=== PATIENT | male | born 1940 | race Caucasian/White ===

== ENCOUNTER → 2022-07-25 10:41 | Outpatient (BNVA) | payer OTHER, SELFPAY | PROVIDERS: Visit Provider Specialist | DX: S49.91XA Unspecified injury of right shoulder and upper arm, initial encounter (principal); S46.212A Strain of muscle, fascia and tendon of other parts of biceps, left arm, initial encounter; M12.812 Other specific arthropathies, not elsewhere classified, left shoulder; W23.0XXA Caught, crushed, jammed, or pinched between moving objects, initial encounter | CPT/HCPCS: 20610; 73030; 99204; 99205; J1100; J2795; J3301 ==

== ENCOUNTER → 2022-10-03 08:57 | Outpatient (BNVA) | payer OTHER, SELFPAY | PROVIDERS: Visit Provider Specialist | DX: M12.812 Other specific arthropathies, not elsewhere classified, left shoulder (principal); S46.212A Strain of muscle, fascia and tendon of other parts of biceps, left arm, initial encounter; X58.XXXA Exposure to other specified factors, initial encounter | CPT/HCPCS: 99213 ==

== ENCOUNTER 2023-02-25 14:32 | Outpatient (CLI) | payer OTHER, SELFPAY ==
--- NOTE | 2023-02-25 14:42 | CT_ITS ---
WS: [id number] CT ABDOMEN PELVIS TECHNIQUE: Contrast-enhanced CT of the abdomen and pelvis with coronal and sagittal reformatted image s. CLINICAL INFORMATION: ABNORMAL WEIGHT LOSS COMPARISON: None. DLP: 251.[address] scans at [facility] use at least one of these dose optimization techniques: automated e xposure control; mA and/or kV adjustment per patient size (includes targeted exams where dose is matc hed to clinical indication); or iterative reconstruction. FINDINGS: Enhancing homogeneously enhancing enlarged prostate measuring 4.7 CCM. Urine distended bladder with s mall cystocele. Penile pump reservoir in the LEFT pelvis. Slight bibasilar atelectasis. Small noncalcified nodule RIGHT middle lobe measuring 3 mm. 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 Mild diffuse fatty infiltration t he liver. Normal gallbladder. Normal portal vein and splenic vein. Normal spleen. Normal GE junction. Normal caliber abdominal aorta. Celiac and SMA are patent. Mild aortic calcification. No aneurysm. N ormal renal parenchymal enhancement. Duplicated RIGHT renal collecting system. No hydronephrosis. Adr enal glands are normal. Sigmoid diverticulosis. Mild RIGHT colon and transverse colon constipation. Mild rectal constipation. CT/CT abdomen pelvis w con* [id number] IMPRESSION: 1. Large heterogeneously enhancing prostate measuring 4.7 CM with thickening o f the seminal vesicles.. Distended bladder may be due to bladder outlet obstruc tion. Recommend correlation PSA. 2. Mild transverse colon, RIGHT colon and rectal constipation. 3. Mild diffuse fatty infiltration liver. 4. No hydronephrosis in either kidney. 5. No adenopathy in the abdomen or pelvis. 6. 3 mm small nodule in the RIGHT middle lobe.
[2023-02-25] MEDS: iohexol 350 mg/mL 500 mL Btl (per mL) IV (16:06)
[2023-02-25] MEDS: iohexol 350 mg/mL 500 mL Btl (per mL) PO (16:07)
[2023-02-25 16:27] LABS: Blood Urea Nitrogen 25 mg/dL (8-23)
== END 2023-02-25 14:33 | disposition home or self-care (01) ==
LOC: RAD 14:36
PROVIDERS: Visit Provider Family Medicine
DX: R63.4 Abnormal weight loss (principal); N32.89 Other specified disorders of bladder; K59.00 Constipation, unspecified; N40.0 Benign prostatic hyperplasia without lower urinary tract symptoms; K76.0 Fatty (change of) liver, not elsewhere classified; R91.1 Solitary pulmonary nodule
CPT/HCPCS: 74177; 82565; 84520; Q9967

== ENCOUNTER → 2023-11-22 07:38 | Outpatient (BNVA) | payer OTHER, SELFPAY | PROVIDERS: PCP Family Medicine; Referring Provider Family Medicine; Visit Provider Internal Medicine | DX: E78.2 Mixed hyperlipidemia; E11.649 Type 2 diabetes mellitus with hypoglycemia without coma; Z79.84 Long term (current) use of oral hypoglycemic drugs | CPT/HCPCS: 36415; 80053; 80061; 82044; 83036; 99204 ==

== ENCOUNTER 2023-12-13 16:01 | Emergency (ER) | payer OTHER, SELFPAY ==
[2023-12-13 16:06] VITALS: BP 161/80; PULSE 69; RESP 16; TEMP 36.4; O2SAT 98
--- NOTE | 2023-12-13 16:17 | CTR_ITS ---
PROCEDURE INFORMATION: Exam: CT Head Without Contrast Exam date and time: 12/13/2023 4:34 PM Age: 83 years old Clinical indication: Injury or trauma; Fall; Blunt trauma (contusions or hematomas); Without loss of consciousness; Injury details: Hit RT side of face; Additional info: Head injury TECHNIQUE: Imaging protocol: Computed tomography of the head without contrast. Radiation optimization: All CT scans at this facility use at least one of these dose optimization techniques: automated exposure control; mA and/or kV adjustment per patient size (includes targeted exams where dose is matched to clinical indication); or iterative reconstruction. COMPARISON: No relevant prior studies available. RADIATION DOSE METRICS: Total DLP (mGy-cm): 1049.2 FINDINGS: Brain: No intracranial hemorrhage. There is global parenchymal volume loss. Periventricular white matter hypoattenuation is nonspecific but most likely due to small vessel disease. No evidence of acute territorial infarct or cerebral edema. No mass effect or midline shift. Cerebral ventricles: Prominent ventricles likely secondary to volume loss. Paranasal sinuses: Visualized sinuses are unremarkable. No fluid levels. Mastoid air cells: Visualized mastoid air cells are well aerated. Bones/joints: Unremarkable. No acute fracture. Soft tissues: Unremarkable. CT/CT head wo con* [id number] IMPRESSION: No acute intracranial findings.
--- NOTE | 2023-12-13 16:19 | ED_ITS ---
HPI - Head Injury General: Chief complaint: Head Injury Stated complaint: [facility] Time Seen by Provider: 12/13/23 16:13 Source: patient Mode of arrival: ambulatory Limitations: no limitations History of Present Illness: 83-year-old male that states that he fel l twice on Saturday had struck his head he does have bruising to the right forehead he had some mild headaches he does take aspirin he denies any loss of consciousness patient was sent over here from the [place] for head CT he denies any neck pain denies any other injury Associated symptoms: Deny nausea, neck pain or vomiting Review of Systems Const: Denies: fever(s), chills, body aches or change in appetite ENMT: Denies: throat pain or dental pain Card: Denies: chest pain Resp: Denies: dyspnea GI: Denies: abdominal pain, nausea, vomiting or diarrhea Musc: Denies: neck pain or back pain Skin/Breast: Denies: rash Neuro: Reports: headache(s) PFS ED PFSH: Social History Smoking and tobacco/nicotine status: never used tobacco/nicotine Physical Exam Const: COMMON NORMALS: no acute distress, patient oriented x3 and healthy appearing HENMT: COMMON NORMALS: normocephalic HEAD & SCALP: normocephalic OTHER: Contusion over right forehead Eye: COMMON NORMALS: Equal, round and reactive pupils present and EOMs intact bilaterally PUPIL: Yes Equal, round and reactive pupils present OTHER: Range of motion eyes he has no tenderness around the socket does have a contusion around the right eye pain over the right forehead palpation Neck/C-Spine: COMMON NORMALS: full ROM and supple Chest: COMMONS NORMALS: normal inspection of the chest and normal palpation of entire chest wall Resp: COMMON NORMALS: normal respiratory effort Cardio: COMMON NORMALS: regular rate, regular rhythm and No murmurs present (Cardio) RATE: regular rate RHYTHM: regular rhythm Extremity: COMMON NORMALS: normal to inspection and full ROM Neuro: COMMON NORMALS: patient oriented x3, moves all extremities and no focal motor deficits Psych: COMMON NORMALS: mental status grossly normal, Normal thought process present and cooperative THOUGHT PROCESS: Normal thought process present Skin: COMMON NORMALS: no rashes or lesions noted and no wounds GENERAL SKIN EXAM: no rashes or lesions noted Course Vital Signs: Vital signs: Vital Signs Temperature 97.5 F L 12/13/23 16:06 Pulse Rate 69 12/13/23 16:06 Respiratory Rate 16 12/13/23 16:06 Blood Pressure 161/80 12/13/23 16:06 Pulse Oximetry 98 12/13/23 16:06 MDM - Head Injury Medcial Decision Making Patient presents here with a closed head injury CT here is normal patient is stable for discharge she is follow-up with her PCP and return if worsening. Medical Records I reviewed the patient's medical records. Lab Data Radiology Impressions Head CT 12/13/23 16:17 IMPRESSION: No acute intracranial findings. All radiology interpretation(s) finalized by discharge Discharge Plan Discharge Patient Disposition: Home Clinical Impression: Closed head injury Condition: Stable Prescriptions: No Action finasteride 5 mg tablet 5 mg PO DAILY empagliflozin 25 mg tablet 25 mg PO DAILY Rx Instructions: take 1/2 a tab once a day rosuvastatin 5 mg tablet 5 mg PO DAILY multivitamin [One Daily Multivitamin] Tablet 1 tab PO DAILY aspirin 81 mg tablet,delayed release (DR/EC) 81 mg PO DAILY glimepiride 4 mg tablet 4 mg PO DAILY cranberry 500 mg capsule 500 mg PO BID Rx Instructions: administer with meals pioglitazone [Actos] 45 mg tablet 45 mg PO DAILY Qty: 90 0RF Victoza 3-Galindo 0.6 mg/0.1 mL (18 mg/3 mL) pen injector 1.2 mg SUBCUT DAILY 7 Days Qty: 9 0RF Rx Instructions: 1.2mg daily x one week then start 1.8 daily Victoza 3-Galindo 0.6 mg/0.1 mL (18 mg/3 mL) pen injector 1.8 mg SUBCUT DAILY 90 Days Qty: 27 1RF Discharge Orders: Discharge ED (Routine); Ordered 12/13/23 Ordered By: Gustabo Fournier Referrals: Linda Fischer MD [Primary Care Provider] - 1-3 days Discharge Diet: Advance as tolerated Discharge Activity: Resume usual activity Patient Instructions: Head Injury (ED) Coding Level of Care Code ED Political Anthropologist for Jennifer Rodas
[2023-12-13 17:04] VITALS: BP 135/74; PULSE 67; RESP 15; O2SAT 98
== END 2023-12-13 17:05 | disposition home or self-care (01) ==
PROVIDERS: Emergency Provider Emergency Medicine; PCP Family Medicine
DX: S00.83XA Contusion of other part of head, initial encounter (principal); Z79.82 Long term (current) use of aspirin; Z79.84 Long term (current) use of oral hypoglycemic drugs; W19.XXXA Unspecified fall, initial encounter
CPT/HCPCS: 70450; 99284

== ENCOUNTER → 2024-02-21 07:35 | Outpatient (BNVA) | payer OTHER, SELFPAY | PROVIDERS: PCP Family Medicine; Visit Provider Internal Medicine | DX: E11.9 Type 2 diabetes mellitus without complications (principal); E78.2 Mixed hyperlipidemia; Z79.84 Long term (current) use of oral hypoglycemic drugs | CPT/HCPCS: 99215 ==

== ENCOUNTER 2024-06-15 09:17 | Outpatient (CLI) | payer OTHER, SELFPAY ==
[2024-06-15 09:56] LABS: Alanine Aminotransferase 13 U/L (0-41); Anion Gap 15.9 (5-19); Aspartate Amino Transferase 19 U/L (0-40); Blood Urea Nitrogen 29 mg/dL (8-23); Calcium 9.4 mg/dL (8.5-10.5); Carbon Dioxide 27 mmol/L (22-29); Chloride 103 mmol/L (98-107); Cholesterol 145 mg/dL (0-200); Globulin 2.5 g/dL (1.3-4.6); Glucose 169 mg/dL (65-115); HDL Cholesterol 66 mg/dL (60-100); LDL Cholesterol Calculated 62 mg/dL (50-129); LDL HDL Ratio 0.94 RATIO (0.00-3.22); Osmolality Calculated 302 mOsm/kg (285-295); Potassium 4.9 mmol/L (3.5-5.1); Sodium 141 mmol/L (136-145); Total Bilirubin 0.5 mg/dL (0.15-1.2); Total Protein 6.5 g/dL (6.6-8.7); Triglycerides 86 mg/dL (0-150)
[2024-06-15 09:57] LABS: Alkaline Phosphatase 103 U/L (40-130)
[2024-06-15 10:02] LABS: Creatinine Urine, Random 90 mg/dL (39-259); Microalbum Creatinine Ratio Ur 11 mg/dL (0-20); Microalbumin Random Urine 1 ug/dL (0-20)
[2024-06-15 10:31] LABS: Estmated Average Glucose 171; Hemoglobin A1C 7.6 % (4.0-6.0)
== END 2024-06-15 09:18 | disposition home or self-care (01) ==
LOC: LAB 09:19
PROVIDERS: PCP Family Medicine; Visit Provider Internal Medicine
DX: E11.9 Type 2 diabetes mellitus without complications (principal); E78.2 Mixed hyperlipidemia
CPT/HCPCS: 36415; 80053; 80061; 82044; 83036

== ENCOUNTER → 2024-06-19 07:51 | Outpatient (BNVA) | payer OTHER, SELFPAY | PROVIDERS: PCP Family Medicine; Visit Provider Internal Medicine | DX: E11.9 Type 2 diabetes mellitus without complications (principal); E78.2 Mixed hyperlipidemia; Z79.84 Long term (current) use of oral hypoglycemic drugs; Z79.85 Long-term (current) use of injectable non-insulin antidiabetic drugs | CPT/HCPCS: 99214 ==

== ENCOUNTER 2024-07-28 11:30 | Outpatient (CLI) | payer OTHER, SELFPAY ==
[2024-07-28 13:00] LABS: Estmated Average Glucose 169; Hemoglobin A1C 7.5 % (4.0-6.0)
[2024-07-28 13:02] LABS: Alanine Aminotransferase 20 U/L (0-41); Albumin Level 4.2 g/dL (3.5-5.2); Alkaline Phosphatase 120 U/L (40-130); Anion Gap 15.3 (5-19); Aspartate Amino Transferase 27 U/L (0-40); Blood Urea Nitrogen 28 mg/dL (8-23); Calcium 9.7 mg/dL (8.5-10.5); Carbon Dioxide 29 mmol/L (22-29); Chloride 101 mmol/L (98-107); Chol HDL Ratio 2.19 mg/dL (1.0-5.00); Cholesterol 149 mg/dL (0-200); Globulin 2.9 g/dL (1.3-4.6); Glucose 186 mg/dL (65-115); HDL Cholesterol 68 mg/dL (60-100); LDL Cholesterol Calculated 58 mg/dL (50-129); LDL HDL Ratio 0.85 RATIO (0.00-3.22); Osmolality Calculated 300 mOsm/kg (285-295); Potassium 5.3 mmol/L (3.5-5.1); Sodium 140 mmol/L (136-145); Total Bilirubin 0.4 mg/dL (0.15-1.2); Total Protein 7.1 g/dL (6.6-8.7); Triglycerides 113 mg/dL (0-150)
[2024-07-28 13:09] LABS: Creatinine Urine, Random 197 mg/dL (39-259); Microalbum Creatinine Ratio Ur 30 mg/dL (0-20); Microalbumin Random Urine 6 ug/dL (0-20)
== END 2024-07-28 11:31 | disposition home or self-care (01) ==
LOC: LAB 11:32
PROVIDERS: PCP Family Medicine; Visit Provider Internal Medicine
DX: E11.9 Type 2 diabetes mellitus without complications (principal); E78.2 Mixed hyperlipidemia
CPT/HCPCS: 36415; 80053; 80061; 82044; 83036

== ENCOUNTER 2024-08-19 07:57 | Outpatient (CLI) | payer OTHER, SELFPAY ==
[2024-08-19 08:35] LABS: Blood Urea Nitrogen 22 mg/dL (8-23); Calcium 9.1 mg/dL (8.5-10.5); Carbon Dioxide 25 mmol/L (22-29); Chloride 102 mmol/L (98-107); Glucose 167 mg/dL (65-115); Osmolality Calculated 291 mOsm/kg (285-295); Sodium 137 mmol/L (136-145)
[2024-08-19 09:00] LABS: Anion Gap 14.2 (5-19); Potassium 4.2 mmol/L (3.5-5.1)
== END 2024-08-19 07:58 | disposition home or self-care (01) ==
LOC: LAB 07:58
PROVIDERS: PCP Family Medicine; Visit Provider Internal Medicine
DX: E78.2 Mixed hyperlipidemia (principal)
CPT/HCPCS: 80048

== ENCOUNTER → 2024-08-21 08:24 | Outpatient (BNVA) | payer OTHER, SELFPAY | PROVIDERS: PCP Family Medicine; Visit Provider Internal Medicine | DX: E11.9 Type 2 diabetes mellitus without complications (principal); E78.2 Mixed hyperlipidemia; Z79.84 Long term (current) use of oral hypoglycemic drugs; Z79.85 Long-term (current) use of injectable non-insulin antidiabetic drugs | CPT/HCPCS: 99214 ==

== ENCOUNTER 2025-02-12 08:02 | Outpatient (CLI) | payer OTHER, SELFPAY ==
[2025-02-12 09:02] LABS: Estmated Average Glucose 180; Hemoglobin A1C 7.9 % (4.0-6.0)
[2025-02-12 09:12] LABS: Creatinine Urine, Random 144 mg/dL (39-259); Microalbum Creatinine Ratio Ur 7 mg/dL (0-20); Microalbumin Random Urine 1 ug/dL (0-20)
[2025-02-12 09:19] LABS: Alanine Aminotransferase 10 U/L (0-41); Albumin Level 4.2 g/dL (3.5-5.2); Alkaline Phosphatase 90 U/L (40-130); Anion Gap 15.5 (5-19); Aspartate Amino Transferase 19 U/L (0-40); Blood Urea Nitrogen 26 mg/dL (8-23); Calcium 9.8 mg/dL (8.5-10.5); Carbon Dioxide 27 mmol/L (22-29); Chloride 102 mmol/L (98-107); Chol HDL Ratio 2.35 mg/dL (1.0-5.00); Cholesterol 160 mg/dL (0-200); Globulin 2.6 g/dL (1.3-4.6); Glucose 156 mg/dL (65-115); HDL Cholesterol 68 mg/dL (60-100); LDL Cholesterol Calculated 76 mg/dL (50-129); LDL HDL Ratio 1.12 RATIO (0.00-3.22); Osmolality Calculated 298 mOsm/kg (285-295); Potassium 4.5 mmol/L (3.5-5.1); Sodium 140 mmol/L (136-145); Total Bilirubin 0.9 mg/dL (0.15-1.2); Total Protein 6.8 g/dL (6.6-8.7); Triglycerides 78 mg/dL (0-150)
== END 2025-02-12 08:03 | disposition home or self-care (01) ==
LOC: LAB 08:05
PROVIDERS: PCP Family Medicine; Visit Provider Internal Medicine
DX: E11.9 Type 2 diabetes mellitus without complications (principal); E78.2 Mixed hyperlipidemia
CPT/HCPCS: 36415; 80053; 80061; 82044; 83036

== ENCOUNTER → 2025-03-11 12:11 | Outpatient (BNVA) | payer OTHER, SELFPAY | PROVIDERS: PCP Family Medicine; Visit Provider Internal Medicine | DX: E11.9 Type 2 diabetes mellitus without complications (principal); E78.2 Mixed hyperlipidemia | CPT/HCPCS: 99214 ==

== ENCOUNTER 2025-07-19 05:00 | Outpatient (RCR) | payer OTHER, SELFPAY | END 2025-08-17 23:59 | disposition home or self-care (01) | LOC: GPT 05:00 | PROVIDERS: Visit Provider Orthopaedic Surgery | DX: Z47.1 Aftercare following joint replacement surgery (principal); Z96.612 Presence of left artificial shoulder joint | CPT/HCPCS: 97110; 97112; 97140; 97161 ==

== ENCOUNTER → 2025-08-02 10:21 | Outpatient (BNVA) | payer OTHER, SELFPAY | PROVIDERS: Visit Provider Internal Medicine | DX: E11.9 Type 2 diabetes mellitus without complications (principal); E78.2 Mixed hyperlipidemia | CPT/HCPCS: 99214 ==

== ENCOUNTER 2025-09-15 07:55 | Outpatient (RCR) | payer OTHER, SELFPAY | END 2025-09-17 23:59 | disposition home or self-care (01) | LOC: GPT 07:55 | PROVIDERS: Visit Provider Orthopaedic Surgery | DX: Z47.89 Encounter for other orthopedic aftercare (principal) | CPT/HCPCS: 97110; 97112; 97140; 97164; 97530 ==

== ENCOUNTER → 2025-09-22 10:24 | Outpatient (BNVA) | payer OTHER, SELFPAY | PROVIDERS: Visit Provider Podiatrist Foot & Ankle Surgery | DX: M79.671 Pain in right foot (principal); M79.672 Pain in left foot | CPT/HCPCS: 73630 ==

== ENCOUNTER 2025-09-22 11:02 | Observation (INO) | payer OTHER, SELFPAY ==
--- OUTSIDE RECORDS SUMMARY | 2024-05-09 03:00 | XMS_ITS ---
Author Organization [facility] Address [address] [place] [address] Care Team Providers Care School Transportation Supervisor Name Role Phone [facility] Primary Care Provider Ilda vailable Cody Lo Unavailable [phone] Migration, Provider Unavailable Unavailable REASON FOR VISIT EMR-Luis Carlos Encounters Encounter Location Date Provider Diagnosis Migrated_Facility 0 0 05/09/2024 Provider Migration Plan Of Treatment Next Appt Details Provider Name:Cdoy Lo, 06/02/2026 08:00:00 AM, [address] [place], [address], Progress Notes * Carlos Alberto ALCALA GDOB:1940 (85 yo M)Acc No.[id number]:05/09/2024 Patient: Abbie HOWELLCarlos Alberto Leila :1940 A ge:83 Y S ex:Male Address:[facility] [address], [place] [address] Subjective: * Chief Complaints: * E MR-Luis Carlos * * Date:
--- OUTSIDE RECORDS SUMMARY | 2024-05-10 03:00 | XMS_ITS ---
Author Organization [facility] Address [address] [facility] [place] [address] Care Team Providers Care Software Support Representative Name Role Phone [facility] Primary Care Provider Ilda Cody Newell Unavailable [phone] Migration, Provider Unavailable Unavailable Allergies Allergen (clinical drug ingredient) Drug/Non Drug Allergy documented on EMR Reaction Allergy Type Onset Date Status NKDA : NO KNOWN DRUG ALLERGIES Unknown Drug Allergy Active REASON FOR VISIT EMR-Luis Carlos Medications Medication SIG (Take, Route, Frequency, Duration) Notes Start Date End Date Status Finasteride 5 MG Tablet Oral 05/09/2021 08/07/2021 Active Clobetasol Propionate 0.0005 MG/MG Topical Ointment *Reorder from [facility] for eRx and Interaction Alerts* 05/09/2021 06/08/2021 Active Rosuvastatin Calcium 10 MG Oral Tablet *Reorder from [facility] for eRx and Interaction Alerts* 05/09/2021 08/07/2021 Active 3 ML liraglutide 6 MG/ML Pen Injector [Victoza] *Reorder from [facility] for eRx and Interaction Alerts* 05/09/2021 08/07/2021 Active empagliflozin 25 MG Oral Tablet [Jardiance] *Reorder from [facility] for eRx and Interaction Alerts* 05/09/2021 05/19/2021 Active Social History Social History Additional Details Category Social Info Options Details Migrated Social History Migrated Social History History of tobacco use : , Smoking Status : Never used tobacco Encounters Encounter Location Date Provider Diagnosis Migrated_Facility 0 0 05/10/2024 Provider Migration Plan Of Treatment Next Appt Details Provider Name:Cody Lo, 06/02/2026 08:00:00 AM, [address] [place], [address], Progress Notes * Carlos Alberto ALCALA GDOB:1940 (85 yo M)Acc No.[id number]:05/10/2024 Patient: Carlos Alberto COLE :1940 A ge:83 Y S ex:Male Address:[address] [place] [address] Subjective: * Chief Complaints: * E MR-Luis Carlos * Family History: F ather: PRN - Father: . M other: PRN - Mother: . * Social History: M igrated Social History: M igrated Social History: History of tobacco use : , Smoking Status : Never used tobacco. * Medications: T akingFinasteride 5 MG Tablet Oral , stop date 1Clobetasol Propionate 0.0005 MG/MG Topical Ointment , stop date 06/08/2021, Notes to Pharmacist: *Reorder from [facility] for eRx and Interaction Alerts*Rosuvastatin Calcium 10 MG Oral Tablet , stop date 08/07/2021, Notes to Pharmacist: *[facility]*3 ML liraglutide 6 MG/ML Pen Injector [Victoza] , stop date 08/07/2021, Notes to Pharmacist: *[facility] and Interaction Alerts*empagliflozin 25 MG Oral Tablet [Jardiance] , stop date 05/19/2021, Notes to Pharmacist: *[facility] and Interaction Alerts*Taking Finasteride 5 MG Tablet Oral , stop date 08/07/2021Taking Clobetasol Propionate 0.0005 MG/MG Topical Ointment , stop date 06/08/2021, Notes to Pharmacist: *[facility] and Interaction Alerts*Taking Rosuvastatin Calcium 10 MG Oral Tablet , stop date 08/07/2021, Notes to Pharmacist: *[facility] from [facility] for [facility]Rx and Interaction Alerts*Taking 3 ML liraglutide 6 MG/ML Pen Injector [Victoza] , stop date 08/07/2021, Notes to Pharmacist: *Reorder from [facility] for eRx and Interaction Alerts*Taking empagliflozin 25 MG Oral Tablet [Jardiance] , stop date 05/19/2021, Notes to Pharmacist: *Reorder from [facility] for eRx and Interaction Alerts* * Allergies: N KDA : NO KNOWN DRUG ALLERGIES: Allergy * * Date:
--- OUTSIDE RECORDS SUMMARY | 2024-09-12 03:00 | XMS_ITS ---
Author Organization [facility] Address [address] [place] [address] Care Team Providers Care Manager Erp Name Role Phone [facility] Primary Care Provider Ilda vailable Cody Lo Unavailable [phone] Migration, Provider Unavailable Unavailable REASON FOR VISIT EMR-Luis Carlos Encounters Encounter Location Date Provider Diagnosis Migrated_Facility 0 0 09/12/2024 Provider Migration Plan Of Treatment Next Appt Details Provider Name:Cody Lo, 06/02/2026 08:00:00 AM, [address] [place], [address], Progress Notes * Carlos Alberto ALCALA GDOB:1940 (85 yo M)Acc No.[id number]:09/12/2024 Patient: Abbie HOWELLCarlos Alberto Leila :1940 A ge:84 Y S ex:Male Address:[facility] [address], [place] [address] Subjective: * Chief Complaints: * E MR-Luis Carlos * * Date:
--- OUTSIDE RECORDS SUMMARY | 2024-09-13 03:00 | XMS_ITS ---
Author Organization [facility] Address [address] [place] [address] Care Team Providers Care Crawler Dragline Operator Name Role Phone [facility] Primary Care Provider Ilda Cody Newell Unavailable [phone] Migration, Provider Unavailable Unavailable Allergies Allergen (clinical drug ingredient) Drug/Non Drug Allergy documented on EMR Reaction Allergy Type Onset Date Status NKDA : NO KNOWN DRUG ALLERGIES Unknown Drug Allergy Active REASON FOR VISIT EMR-Luis Carlos Medications Medication SIG (Take, Route, Frequency, Duration) Notes Start Date End Date Status Aspirin *Pick strength-f orm from [facility] for eRX* Active Vitamin B-12 *Pick strength-f orm from [facility] for eRX* Active Finasteride *Pick strength-f orm from [facility] for eRX* Active Rosuvastatin *[facility] for [facility] and Interaction Alerts* Active Metformin *Reorder from [facility] for eRx and Interaction Alerts* Active Multivitamin *Pick strength-f orm from [facility] for eRX* Active glipiZIDE *Pick strength-f orm from [facility] for eRX* Active Victoza 2-Galindo *Reorder from [facility] for eRx and Interaction Alerts* Active [...] Provider Name:Cody Lo, 06/02/2026 08:00:00 AM, [address] [facility], [address], Progress Notes * Carlos Alberto ALCALA GDOB:1940 (85 yo M)Acc No.[id number]:09/13/2024 Patient: Carlos Alberto COLE :1940 A ge:84 Y S ex:Male Address:[address] [address] Subjective: * Chief Complaints: * E MR-Luis [...]
--- OUTSIDE RECORDS SUMMARY | 2025-05-24 02:20 | XMS_ITS ---
Author Organization [facility] Address [address] [place] [address] Care Team Providers Care Warehouse Administrative Assistant Name Role Phone [facility] Primary Care Provider Ilda vailaCody Croft Unavailable [phone] REASON FOR VISIT LEFT REVERSE TOTAL SHOULDER ARTHROPLASTY Encounters Encounter Location Date Provider Diagnosis [facility] [address] [address] 05/24/2025 Cody Lo Plan Of Treatment Next Appt Details Provider Name:Cody Lo, 06/02/2026 08:00:00 AM, [address] [place], [address], Progress Notes * Carlos Alberto ALCALA GDOB:1940 (85 yo M)Acc No.[id number]:05/24/2025 Patient: Carlos Alberto Ortiz Provider: Juan Carlos Lo M.D. :1940 A ge:84 Y S ex:Male Date:05/24/2025 Address:[address] [place]-[id number] Pcp:[facility] * Electronic signature of Mitch Lo MD on 09/23/2025 at 12:30 AM PROGRAMS DIRECTOR Sign off status: Pending * Provider: Juan Carlos Lo M.D. Date: 05/24/2025 Generated for Printi ng/Faxing/eTransmitting on: 11/23/2024 12:30 AM PROGRAMS DIRECTOR
[2025-09-22] VITALS (29 sets, daily range): BP systolic 116–145; BP diastolic 61–90; PULSE 51–143; RESP 12–32; TEMP 36.6–36.8; O2SAT 83–100; BMI 18.4; BMI 19.8
--- OUTSIDE RECORDS SUMMARY | 2025-09-22 11:15 | XMS_ITS | Clinical Summary ---
Author Organization [facility] Address [address] [place] [address] Care Team Providers Care Correctional Program Specialist Name Role Phone Jeanie Goff MD Primary Care Provider [phone] Allergies No known active allergies Medications METFORMIN HCL (METFORMIN ORAL) Act abdiel GLIPIZIDE ORAL Activ e multivitamin (DAILY-JEFFERY) Oral tablet Active FINASTERIDE ORAL Act abdiel aspirin (BRY) 325 mg tablet Take 325 mg by mouth daily. Active VITAMIN B COMPLEX NO.12-NIACIN ORALIndications: every other day Take by mouth. Active Active Problems Problem Noted Date Diagnosed Date DM (diabetes mellitus), type 2 02/18/2017 Immunizations Immunization Administration Dates Next Due Influenza Seasonal Unspecified Formulation IM Family History Medical History Relation Name Comments Arthritis-rheumatoid Mother Relation Name Status Comments Father Mother Alive Social History Tobacco Use Types Packs/Day Years Used Date Smoking Tobacco: Never Smokeless Tobacco: Never Alcohol Use Standard Drinks/Week Comments No 0 (1 standard drink = 0.6 oz pur e alcohol) Sex and Gender Information Value Date Recorded Sex Assigned at Not on file Legal Sex Male 4:34 AM MEDICAL AUDITOR Gender Identity Not on file Sexual Orientation Not on file Last Filed Vital Signs Vital Sign Reading Time Taken Comments Blood Pressure 158/88 10/25/2019 7:08 PM MEDICAL AUDITOR Pulse 75 10/25/2019 4:45 PM MEDICAL AUDITOR Temperature 36.5 C (97.7 F) 10/25/2019 4:16 PM MEDICAL AUDITOR Respiratory Rate 16 10/25/2019 7:08 PM MEDICAL AUDITOR Oxygen Saturation 98% 10/25/2019 7:08 PM MEDICAL AUDITOR Inhaled Oxygen Concentration - - Weight 63.5 kg (140 lb) 10/25/2019 4:16 PM MEDICAL AUDITOR Height 180.3 cm (5' 11 ) 10/25/2019 4:16 PM MEDICAL AUDITOR Body Mass Index 19.53 10/25/2019 4:16 PM MEDICAL AUDITOR Plan of Treatment Health Maintenance Due Date Last Done Comments DIABETES ANNUAL FOOT EXAM 1959 DIABETES MICROALBUMIN ANNUAL SCREEN 1959 LDL CHOLESTEROL ANNUAL 1959 DTAP/TDAP/TD VACCINES (1 - Tdap) 1960 PNEUMOCOCCAL VACCINE 50+ YEA RS (1 of 2 - PCV) 1960 ZOSTER VACCINE (1 of 2) 1991 RSV VACCINE (60+ or ) (1 - 1-dose 75+ series) 2016 DIABETES ANNUAL RETINAL EXAM 12/11/2017, 04/10/2016, 03/21/2015, Additional history exists DIABETES HBA1C Q 6 MONTHS 10/27/20192018, 12/29/2018, 09/25/2018, Additional history exists INFLUENZA VACCINE (#1) 2025 09/22/2001 Insurance MEDICARE PART A AND B [employer] Care Teams Correctional Program Specialist Relationship Specialty Start Date End Date Jeanie Goff MD [address] [place] [address] PCP - General Internal Medicine 01/28/17
--- OUTSIDE RECORDS SUMMARY | 2025-09-22 11:15 | XMS_ITS | Encounter Summary ---
Author Organization [facility] Address [address] [place] [address] Care Team Providers Care Supervisor Machine Workers Name Role Phone Jeanie Goff MD Primary Care Provider [phone] Encounter Details Date Type Department Care Team (Latest Contact Info) Description 09/22/2001 Outpatient Historical [facility] Jarred Mendoza MD [address] [place] [address] DIABETES UNCOMPL ADULT-TYPE II (CMS/HCC) (Primary Dx); HYPERTENSION NOS; VACCINE FOR INFLUENZA Social History Tobacco Use Types Packs/Day Years Used Date Smoking Tobacco: Never Assessed Sex and Gender Information Value Date Recorded Sex Assigned at Not on file Legal Sex Male 4:34 AM RECORD LABEL INTERN Gender Identity Not on file Sexual Orientation Not on file documented as of this encounter Plan of Treatment Not on file documented as of this encounter Visit Diagnoses Diagnosis Type II or unspecified type diabetes mellitus without mention of complication, not stated as uncontrolled- Primary Unspecified essential hypertension Need vaccination-viral disease Need for prophylactic vaccination and inoculation against other viral diseases documented in this encounter Care Teams Supervisor Machine Workers Relationship Specialty Start Date End Date Jeanie Goff MD [address] [place] [address] PCP - General Internal Medicine 01/28/17 documented as of this encounter
--- OUTSIDE RECORDS SUMMARY | 2025-09-22 11:15 | XMS_ITS | Encounter Summary ---
Author Organization [facility] Address [address] [place] [address] Care Team Providers Care Card Folder Name Role Phone Jeanie Goff MD Primary Care Provider [phone] Encounter Details Date Type Department Care Team (Latest Contact Info) Description 04/08/2003 Outpatient Historical [facility] Cardiovascular Services [address] [id number] Adelfo Peace MD [address] [address] [place] [address] CHEST PAIN NOS (Primary Dx) Social History Tobacco Use Types Packs/Day Years Used Date Smoking Tobacco: Never Assessed Sex and Gender Information Value Date Recorded Sex Assigned at Not on file Legal Sex Male 4:34 AM ENVIRONMENT ARTIST Gender Identity Not on file Sexual Orientation Not on file documented as of this encounter Plan of Treatment Not on file documented as of this encounter Visit Diagnoses Diagnosis Chest pain, unspecified- Primary documented in this encounter Care Teams Card Folder Relationship Specialty Start Date End Date Jeanie Goff MD [address] [place] [address] PCP - General Internal Medicine 01/28/17 documented as of this encounter
--- OUTSIDE RECORDS SUMMARY | 2025-09-22 11:15 | XMS_ITS | Clinical Summary ---
Author Organization [facility] Address [address] [facility] Attn: Epic [place] [address] Care Team Providers Care President College Or [employer] Name Role Phone Jeanie Goff MD Primary Care Provider [phone] Allergies No known active allergies Medications vit B complex no.12/niacin,B3, (VITAMIN B COMPLEX NO.12-NIACIN ORAL) Take by mouth. 02/18/2017 Active aspirin (BRY) 325 mg tablet Take 325 mg by mouth daily. 02/18/2017 Active Active Problems Problem Noted Date Diagnosed [...] at Not on file Legal Sex Male 6:44 AM ACUPRESSURIST Gender Identity Not on file Sexual Orientation Not on file Last Filed Vital Signs Vital Sign Reading Time Taken Comments Blood Pressure 158/88 10/25/2019 7:08 PM ACUPRESSURIST Pulse 75 10/25/2019 4:45 PM ACUPRESSURIST Temperature 36.5 C (97.7 F) 10/25/2019 4:16 PM ACUPRESSURIST Respiratory Rate 16 10/25/2019 7:08 PM ACUPRESSURIST Oxygen Saturation - - Inhaled Oxygen Concentration - - Weight 63.5 kg (140 lb) 10/25/2019 4:16 PM ACUPRESSURIST Height 180.3 cm (5' 11 ) 10/25/2019 4:16 PM ACUPRESSURIST Body Mass Index 19.53 10/25/2019 4:16 PM ACUPRESSURIST Plan of Treatment Upcoming Encounters Date Type Department Care Team (Late st Contact Info) Description 10/20/2025 9:15 AM ACUPRESSURIST Office Visit [facility] Orthopedics - Orthopedic [facility] [address] [phone] Richie García MD [address] [place] [address] Health Maintenance Due Date Last Done Comments [...] exists INFLUENZA VACCINE (#1) 2025 09/22/2001 Insurance [facility] [place] [employer] Care Teams President College [employer] Relationship Specialty Start Date End Date Jeanie Goff MD [address] [place] [address] PCP - General Internal Medicine 01/28/17
--- OUTSIDE RECORDS SUMMARY | 2025-09-22 11:15 | XMS_ITS | Encounter Summary ---
Author Organization [facility] Address [address] [place] [address] Care Team Providers Care Academic Guidance Specialist Name Role Phone Jeanie Goff MD Primary Care Provider [phone] Encounter Details Date Type Department Care Team (Late st Contact Info) Description 04/08/2003 Outpatient Historical [facility] Imaging Services [place] [address] [place] [phone] Belkis Mc MD NO ADDRESS ON FILE Social History Tobacco Use Types Packs/Day Years Used Date Smoking Tobacco: Never Assessed Sex and Gender Information Value Date Recorded Sex Assigned at Not on file Legal Sex Male 4:34 AM EAR SPECIALIST Gender Identity Not on file Sexual Orientation Not on file documented as of this encounter Plan of Treatment Not on file documented as of this encounter Visit Diagnoses Not on filedocumented in this encounter Care Teams Academic Guidance Specialist Relationship Specialty Start Date End Date Jeanie Goff MD [address] [place] [address] PCP - General Internal Medicine 01/28/17 documented as of this encounter
--- NOTE | 2025-09-22 11:21 | ECG_ITS ---
[employer] [facility] Test Date: 2025-09-22 Pat Name: Carlos Alberto Lares Department: Room: Gender: Male Aligner: : 1940 Requested By: Marino Calix Order Number: [id number] Patel MD: Tommy Dye M.D. Measurements Intervals [place] Rate: 142 P: 0 HI: 0 QRS: -33 QRSD: 84 T: 67 QT: 297 QTc: 457 Interpretive Statements ATRIAL FLUTTER/TACHYCARDIA WITH RAPID VENTRICULAR RESPONSE LEFT AXIS DEVIATION [QRS AXIS < -30] NONSPECIFIC ST & T-WAVE ABNORMALITY INTERPRETATION BASED ON A DEFAULT AGE OF 40 YEARS No previous ECG available for comparison Electronically Signed On 09-22-2025 23:41:47 ROVING FRAME TENDER by Tommy Dye M.D. [id number]
--- NOTE | 2025-09-22 11:21 | XR_ITS ---
WS: [id number] Portable AP upright chest, 09/22/2025 Clinical Data: intermittent tachycardia Comparison: Portable chest, 06/11/2009. Findings: No nodules, masses or effusions are seen. The heart is normal. The pulmonary vascularity is not increased. No pneumonia or pneumothorax is seen. The aortic arch and descending thoracic aorta show minimal calcification and tortuosity. 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 XR/XR chest 1V portable [id number] Impression: Atherosclerosis.
--- NOTE | 2025-09-22 11:25 | ECG_ITS ---
[employer] [facility] Test Date: 2025-09-22 Pat Name: Carlos Alberto Lares Department: Room: Gender: Male Sheet Fed Printer: : 1940 Requested By: Marino Calix Order Number: [id number] Amanda MD: Tommy Dye M.D. Measurements Intervals [place] Rate: 72 P: 12 PA: 154 QRS: 84 QRSD: 90 T: -3 QT: 329 QTc: 362 Interpretive Statements SINUS RHYTHM WITH OCCASIONAL SUPRAVENTRICULAR PREMATURE COMPLEXES NONSPECIFIC T-WAVE ABNORMALITY No previous ECG available for comparison Electronically Signed On 09-22-2025 23:42:49 BULB ASSEMBLER by oTmmy Dye M.D. [email or web address] [id number]
[2025-09-22 11:27] LABS: Hematocrit 47.8 % (37-53); Hemoglobin 16.00 g/dL (11.27-16.99); Mean Corpuscular HGB Conc 33.5 g/dL (30-55); Mean Corpuscular Hemoglobin 29.6 pg (27-33); Mean Corpuscular Volume 88.4 fl (82-101); Nucleated Red Blood Cells % 0 %; Platelet Count 194 10^3/cmm (157-399); Red Blood Count 5.41 10^6/uL (3.85-5.65); White Blood Count 7.37 10^3/uL (3.29-11.43)
[2025-09-22 11:41] LABS: INR 0.93 (0.8-1.2); Prothrombin Time 13.10 SECONDS (12.1-14.9)
[2025-09-22 11:42] LABS: Partial Thromboplastin Time 31.3 SECONDS (23.9-36.7)
[2025-09-22 11:50] LABS: Troponin(5th) Baseline 66 ng/L (0-15)
[2025-09-22 11:57] LABS: Alanine Aminotransferase 10 U/L (0-41); Albumin Level 4.7 g/dL (3.5-5.2); Alkaline Phosphatase 114 U/L (40-130); Anion Gap 17.7 (5-19); Aspartate Amino Transferase 20 U/L (0-40); Blood Urea Nitrogen 32 mg/dL (8-23); Calcium 10.3 mg/dL (8.5-10.5); Carbon Dioxide 26 mmol/L (22-29); Chloride 104 mmol/L (98-107); Creatinine Clr Calc Pharmacy 43.6185; Free T4 Free Thyroxine 1.17 ng/dL (0.82-1.77); Globulin 2.2 g/dL (1.3-4.6); Glucose 93 mg/dL (65-115); Magnesium 1.7 mg/dL (1.7-2.3); Osmolality Calculated 303 mOsm/kg (285-295); Potassium 4.7 mmol/L (3.5-5.1); Sodium 143 mmol/L (136-145); Thyroid Stimulating Hormone 3.07 uIU/mL (0.27-4.20); Total Protein 6.9 g/dL (6.6-8.7)
[2025-09-22] MEDS: metoprolol succinate ER (24 HR) 25 mg Tablet PO ×2 (12:35→15:05)
[2025-09-22] MEDS: metoprolol tartrate 1 mg/1 mL SDV 5 mL 2.5 MG IVP (12:37)
[2025-09-22 12:46] LABS: NT Pro B Type Natriuretic Pept 5107 pg/mL (0-450)
--- NOTE | 2025-09-22 13:21 | ECG_ITS ---
[facility] Date: 2025-09-22 Pat Name: Carlos Alberto Lares Department: Room: Gender: Male Senior Accounting Manager: : 1940 Requested By: Marino Calix Order Number: [id number] Patel MD: Tommy Dye M.D. Measurements Intervals [place] Rate: 59 P: 42 IL: 171 QRS: -20 QRSD: 88 T: 28 QT: 342 QTc: 340 Interpretive Statements SINUS BRADYCARDIA Compared to ECG 09/22/2025 11:19:50 Atrial flutter no longer present Left-axis deviation no longer present T-wave abnormality no longer present Electronically Signed On 09-22-2025 23:51:55 TOOL ROOM MACHINIST by Tommy Dye M.D. [email or web address]
[2025-09-22 13:35] LABS: Troponin 5 2HR 58.76 ng/L (0-15)
[2025-09-22 13:37] LABS: Troponin 5 2HR Delta -7.24 ABS# (0-10)
--- NOTE | 2025-09-22 14:40 | W.ED.GENADLT ---
HPI - General Adult General: Chief complaint: General Medical Stated complaint: High Heart Rate and dizzy Time Seen by Provider: 09/22/25 11:15 History of Present Illness: 85-year-old male history of hypertension insulin-dependent diabetes, BPH, presenting to the emergency department with rapid heart rate, sent in by podiatry clinic where he was going to be evaluated for peripheral neuropathy/pain in his foot, reports some nonspecific weakness and lightheadedness over the past few weeks but he never paid much attention to it prior to being told his heart rate was severely elevated in podiatry clinic and that they recommend he come to the ER. No known history of cardiac disease or arrhythmia in the past and known to him not on blood thinners Related Data Home Medications ?Medication ?Instructions ?Recorded ?Confirmed aspirin 81 mg tablet,delayed 81 mg PO DAILY 10/03/22 09/22/25 release finasteride 5 mg tablet 5 mg PO DAILY 10/03/22 09/22/25 multivitamin (One Daily 1 tab PO DAILY 10/03/22 09/22/25 Multivitamin tablet) magnesium 250 mg tablet 250 mg PO DAILY 03/02/25 09/22/25 mecobalamin (vitamin B12) 500 mcg 500 mcg PO DAILY 03/02/25 09/22/25 chewable tablet prevagen 1 cap PO BID 03/02/25 09/22/25 rosuvastatin 10 mg tablet 5 mg PO DAILY 03/02/25 09/22/25 sitagliptin 100 mg tablet 100 mg PO DAILY 03/02/25 09/22/25 nut.tx.gluc.intol,lac-free,soy 1 ea PO TID 09/22/25 09/22/25 (Glucerna oral liquid) Previous Rx's ?Medication ?Instructions ?Recorded blood-glucose sensor (Dexcom G7 #9 ea 08/23/25 Sensor device) insulin aspart U-100 100 unit/mL 3 unit (0.03 mL) SUBCUT TID #15 mL 08/23/25 (3 mL) subcutaneous pen (Novolog FlexPen U-100 Insulin aspart) pen needle, diabetic 33 gauge x #100 ea 09/13/25 (Comfort EZ Pen [place]) Allergies Allergy/AdvReac Type Severity Reaction Status Date / Time No Known Allergies Allergy Verified 03/10/25 13:13 PFSH ED PFSH: Social History Smoking and tobacco/nicotine status: never used tobacco/nicotine Physical Exam Narrative: EXAM NARRATIVE: Gen: A&Ox4, no acute distress, nontoxic appearing HEENT: Normocephalic, atraumatic, no scleral icterus, external ears normal, moist mucous membranes Neck: Supple, full range of motion, no observable masses Lungs: No Respiratory distress, Lungs clear to auscultation bilaterally no rales, rhonchi, wheezing CV: Tachycardic, regular rhythm rate 130s, no murmur, no pitting edema to lower extremities bilaterally Abdomen: Soft, nondistended, nontender to palpation MSK: No joint swelling, FROM all 4 extremities Skin: No rashes, petechiae, lesions. Normal color per patient. Neuro: Alert and oriented, no slurred speech, sensation and strength grossly intact all 4 extremities Psych: Appropriate for situation. Course Consultations: Consultation #1: Discussed case with Dr. Pathak for admission, he requests CSU admission Time: 14:57 Vital Signs: Vital signs: Vital Signs Temperature 97.8 F 09/22/25 11:12 Pulse Rate 85 09/22/25 14:00 Respiratory Rate 17 09/22/25 11:22 Blood Pressure 116/70 09/22/25 14:00 Pulse Oximetry 95 09/22/25 14:00 Oxygen Delivery Me thod Room Air 09/22/25 12:19 MDM - General Adult Medical Decision Making 85-year-old male medical history significant for hypertension hyperlipidemia insulin-dependent diabetes presenting the emergency department with mildly symptomatic tachycardia of unclear etiology/duration, patient with a very labile rhythm in the emergency department, alternating between sinus bradycardia in the 50s to rapid atrial flutter, broke multiple times while in the ED but persistently recurring as well. Well-perfused peripherally without hypotension, plan for dose of metoprolol for rate control, admit for echocardiogram and consideration of anticoagulation given [id number] score. Lab Data No leukocytosis, no anemia, creatinine 1.1, electrolytes normal, thyroid normal, proBNP elevated to 5100, troponin elevated to 60 6 repeat downtrending to 58 09/22/25 11:00 09/22/25 11:00 Radiology Impressions Chest X-Ray 09/22/25 11:21 Impression: Atherosclerosis. Laboratory Results WBC 7.37 10^3/uL (3.29-11.43) 09/22/25 11:00 RBC 5.41 10^6/uL (3.85-5.65) 09/22/25 11:00 Hgb 16.00 g/dL (11.27-16.99) 09/22/25 11:00 Hct 47.8 % (37-53) 09/22/25 11:00 MCV 88.4 fl (82-101) 09/22/25 11:00 MCH 29.6 pg (27-33) 09/22/25 11:00 MCHC 33.5 g/dL (30-55) 09/22/25 11:00 RDW 13.2 % (12.1-15.1) 09/22/25 11:00 Plt Count 194 10^3/cmm (157-399) 09/22/25 11:00 MPV 10.1 fL (7.4-10.4) 09/22/25 11:00 Neut % (Auto) 73.1 % 09/22/25 11:00 Lymph % (Auto) 18.7 % 09/22/25 11:00 [place] % (Auto) 6.4 % 09/22/25 11:00 Eos % (Auto) 0.8 % 09/22/25 11:00 Baso % (Auto) 0.7 % 09/22/25 11:00 Neut # (Auto) 5.39 10^3/uL (1.8-7.7) 09/22/25 11:00 Lymph # (Auto) 1.4 10^3/uL (0.8-4.8) 09/22/25 11:00 [place] # (Auto) 0.5 10^3/uL (0.2-0.9) 09/22/25 11:00 Eos # (Auto) 0.1 10^3/uL (0.0-0.8) 09/22/25 11:00 Baso # (Auto) 0.1 10^3/uL (0.0-0.1) 09/22/25 11:00 Nucleated RBC % (auto) 0 % 09/22/25 11:00 Nucleated RBCs # 0.0 /100WBC 09/22/25 11:00 PT 13.10 SECONDS (12.1-14.9) 09/22/25 11:00 INR 0.93 (0.8-1.2) 09/22/25 11:00 APTT 31.3 SECONDS (23.9-36.7) 09/22/25 11:00 Sodium 143 mmol/L (136-145) 09/22/25 11:00 Potassium 4.7 mmol/L (3.5-5.1) 09/22/25 11:00 Chloride 104 mmol/L (98-107) 09/22/25 11:00 Carbon Dioxide 26 mmol/L (22-29) 09/22/25 11:00 Anion Gap 17.7 (5-19) 09/22/25 11:00 BUN 32 mg/dL (8-23) H 09/22/25 11:00 Creatinine 1.1 mg/dL (0.7-1.2) 09/22/25 11:00 GFR Calculation Not Reportable 09/22/25 11:00 Glucose 93 mg/dL (65-115) 09/22/25 11:00 POC Glucose 104 mg/dL (70-110) 09/22/25 14:05 Calculated Osmolality 303 mOsm/kg (285-295) H 09/22/25 11:00 Calcium 10.3 mg/dL (8.5-10.5) 09/22/25 11:00 Magnesium 1.7 mg/dL (1.7-2.3) 09/22/25 11:00 Total Bilirubin 0.9 mg/dL (0.15-1.2) 09/22/25 11:00 AST 20 U/L (0-40) 09/22/25 11:00 ALT 10 U/L (0-41) 09/22/25 11:00 Alkaline Phosphatase 114 U/L (40-130) 09/22/25 11:00 Troponin T Baseline 66 ng/L (0-15) H 09/22/25 11:00 Troponin T 120 Minute 58.76 ng/L (0-15) H 09/22/25 12:59 Delta Troponin T -7.24 ABS# (0-10) L 09/22/25 12:59 NT-Pro-B Natriuret Pep 5107 pg/mL (0-450) H 09/22/25 11:00 Total Protein 6.9 g/dL (6.6-8.7) 09/22/25 11:00 Albumin 4.7 g/dL (3.5-5.2) 09/22/25 11:00 Globulin 2.2 g/dL (1.3-4.6) 09/22/25 11:00 TSH 3.07 uIU/mL (0.27-4.20) 09/22/25 11:00 Free T4 1.17 ng/dL (0.82-1.77) 09/22/25 11:00 All radiology interpretation(s) finalized by discharge ED provider radiology interpretation(s): Chest x-ray negative for pulmonary edema EKG Data EKG 1: I personally reviewed and interpreted this EKG as follows: EKG interpretation date: 09/22/25 EKG interpretation time: 11:13 Interpretation: Sinus rhythm at 72 bpm with occasional PVC, no STEMI, QTc 354 ms Computer generated interpretation: Chest X-Ray 09/22/25 11:21 Impression: Atherosclerosis. EKG 2: I personally reviewed and interpreted this EKG as follows: EKG interpretation date: 09/22/25 EKG interpretation time: 11:19 Prior EKG tracings: available for review Interpretation: Atrial flutter at 142 bpm with rapid response, left axis deviation, no STEMI, new onset arrhythmia compared to prior EKG 6 minutes ago, QTc 379 Computer generated interpretation: Chest X-Ray 09/22/25 11:21 Impression: Atherosclerosis. EKG 3: I personally reviewed and interpreted this EKG as follows: EKG interpretation date: 09/22/25 EKG interpretation time: 13:28 Prior EKG tracings: available for review Interpretation: Sinus bradycardia 59 bpm, no STEMI, no ectopy, QTc 341 ms Computer generated interpretation: Chest X-Ray 09/22/25 11:21 Impression: Atherosclerosis. Critical Care Time Critical Care Time: Critical Care Time: Yes Total Critical Care Time: 35 Attestation: This case had a high probability of a clinically significant, sudden, or life threatening deterioration of this patient's condition which required my full and direct attention, intervention and personal management. Discharge Plan Discharge Patient Disposition: Admitted As Inpatient Clinical Impression: Atrial flutter with rapid ventricular response Condition: Stable Coding Level of Care Code ED Glass Enamel Mixer for Jennifer Rodas
--- NOTE | 2025-09-22 16:33 | USCV_ITS ---
Luda Carlos Alberto Age: 85 Gender: M : 1940 Exam Date: 09/22/2025 20:01 Ordering Phys: Sj Pathak MD Technologist: RINA Exam Location: [facility] – [place] Indication: aflutter, HTN, IDDM BP: 116 / 70 HR: 64 Rhythm: Atrial fibrillation Technical Quality: Adequate MEASUREMENTS (Male / Female) Normal Values 2D ECHO LV Diastolic Diameter PLAX 4.4 cm 4.2 - 5.9 / 3.9 - 5.3 cm IVS Diastolic Thickness 1.2 cm 0.6 - 1.0 / 0.6 - 0.9 cm IVS Systolic Thickness 1.8 cm LVPW Diastolic Thickness 1.3 cm 0.6 - 1.0 / 0.6 - 0.9 cm LVPW Systolic Thickness 1.6 cm LVOT Diameter 2.0 cm LV Ejection Fraction 2D Teich 55.9 % LV Ejection Fraction MOD 4C 36.9 % LV Ejection Fraction MOD 2C 35.4 % LV Ejection Fraction 2C AL 37.3 % LA Diameter 2.9 cm Aorta at Sinotubular Diameter 3.2 cm IVC Diameter 1.1 cm M-MODE LA Ao Ratio MM 1.0 AV Cusp Separation MM 2.0 cm DOPPLER AV Peak Velocity 102.0 cm/s LVOT Peak Velocity 58.0 cm/s AV Area Cont Eq vti 2.0 cm squared AV Area Cont Eq pk 1.8 cm squared MV Peak Velocity 115.0 cm/s MV Area PHT 4.9 cm squared Mitral E to A Ratio 0.0 TR Peak Velocity 252.0 cm/s TR Peak Gradient 25.4 mmHg TV Peak E Velocity 42.0 cm/s PV Peak Velocity 59.0 cm/s FINDINGS Left Ventricle Normal left ventricular size, systolic function and wall thickness, with no regional wall motion abnormalities. Left ventricular ejection fraction is estimated at 55 %. In the presence of atrial fibrillation diastolic function cannot be assessed accurately. Right Ventricle Normal right ventricular size and systolic function. Right Atrium Normal right atrial size. Left Atrium Normal left atrial size. IA Septum Normal appearance of the interatrial septum. Mitral Valve Normal mitral valve structure. No mitral valve stenosis or regurgitation. Aortic Valve Moderate aortic valve calcification. No aortic valve stenosis. Mild aortic valve regurgitation. Tricuspid Valve Mild tricuspid valve regurgitation. Pulmonic Valve Normal pulmonic valve structure. No pulmonic valve stenosis or regurgitation. Pericardium No pericardial effusion. Aorta Normal diameter of the aortic root and ascending thoracic aorta. IVC Normal IVC diameter. CONCLUSIONS Normal left ventricular size, systolic function and wall thickness, with no regional wall motion abnormalities. Left ventricular ejection fraction is estimated at 55 %. In the presence of atrial fibrillation diastolic function cannot be assessed accurately. Moderate aortic valve calcification. No aortic valve stenosis. Mild aortic valve regurgitation. Mild tricuspid valve regurgitation. There is no pericardial effusion. Right atrial pressure is around 5 mm of mercury. Monserrat Brennan MD (Electronically Signed) Final Date: 23 September 2025 19:30 S
--- NOTE | 2025-09-22 16:37 | PM.HP ---
Providers/Chief Complaint Admitting Physician: Sj Pathak MD Chief Complaint: High Heart Rate and dizzy History of Present Illness Carlos Alberto Lares is a 85 year old male with past medical history of stroke, type 2 diabetes mellitus who presents to the ER today from podiatry office where he was found to have tachycardia on vital check. In the ER he was found to have labile heart rate with heart rate alternating between 115 bpm with atrial flutter on monitor to 50 bpm with normal sinus rhythm. Patient has been complaining of mild weakness occasionally for last 2 days. Denies any chest pain, nausea, vomiting, headache. In the ER so far he received 25 mg of oral metoprolol x 2, 2.5 mg of IV metoprolol. Review of Systems General: Reports: 10 or more systems reviewed and unremarkable except in HPI and below Const: Denies: fever(s), chills, body aches, change in appetite, change in weight, malaise, night sweats, diaphoresis, change in sleep pattern, daytime sleepiness or snoring Eyes: Denies: change in vision, blurry vision, photophobia, eye discomfort or eye discharge ENMT: Denies: throat pain, enlarged tonsils, hoarseness, mouth pain, oral sores, dry mouth, tinnitus, nasal congestion or post nasal drip Card: Denies: chest pain, palpitations, irregular heart rhythm, edema, swelling of feet/ankles, lightheadedness, syncope, pre-syncope, dyspnea on exertion, orthopnea, leg pain with exertion or acrocyanosis Resp: Denies: dyspnea, productive cough, non-productive cough, wheezing, stridor, pain on inspiration, change in phlegm color, hemoptysis or chest congestion GI: Denies: abdominal pain, nausea, vomiting, hematemesis, coffee ground emesis, dysphagia, heartburn, diarrhea, constipation, bloating, GI cramping, change in bowel habits, pain on defecation, hematochezia or melena : Denies: flank pain, difficulty urinating, dysuria, urinary frequency, urinary urgency, urinary hesitancy, urinary dribbling, difficulty starting urination, change in urine stream, nocturia or hematuria Musc: Denies: neck pain, back pain, extremity pain, joint pain, joint swelling, joint redness, joint stiffness or limited range of motion Neuro: Denies: headache(s), numbness in extremities, weakness in extremities, sensory changes, lack of coordination, difficulty walking, frequent falls, dizziness, vertigo, confusion, Slurred speech present, difficulty communicating thoughts or seizure-like activity Psych: Denies: anxiety, depression, mood swings, panic attacks, hopelessness or irritability Endo: Denies: polyuria, polydipsia, tired all the time, cold intolerance, excessive sweating, flushing or heat intolerance Yuri/Lymph: Denies: easy bruising or easy bleeding All/Imm: Denies: tongue swelling, facial swelling or acute wheezing Medications/Allergies Home Medications ?Medication ?Instructions ?Recorded ?Confirmed ?Last Taken ?Type aspirin 81 mg tablet,delayed 81 mg PO DAILY 10/03/22 09/22/25 09/21/25 History release finasteride 5 mg tablet 5 mg PO DAILY 10/03/22 09/22/25 09/21/25 19:00 History multivitamin (One Daily 1 tab PO DAILY 10/03/22 09/22/25 09/22/25 History Multivitamin tablet) magnesium 250 mg tablet 250 mg PO DAILY 03/02/25 09/22/25 09/22/25 History mecobalamin (vitamin B12) 500 mcg 500 mcg PO DAILY 03/02/25 09/22/25 09/22/25 History chewable tablet prevagen 1 cap PO BID 03/02/25 09/22/25 09/22/25 08:00 History rosuvastatin 10 mg tablet 5 mg PO DAILY 03/02/25 09/22/25 09/21/25 19:00 History sitagliptin 100 mg tablet 100 mg PO DAILY 03/02/25 09/22/25 09/22/25 08:00 History blood-glucose sensor (Dexcom G7 #9 ea 08/23/25 09/22/25 Unknown Rx Sensor device) insulin aspart U-100 100 unit/mL 3 unit (0.03 mL) SUBCUT TID #15 mL 08/23/25 09/22/25 09/22/25 Rx (3 mL) subcutaneous pen (Novolog FlexPen U-100 Insulin aspart) pen needle, diabetic 33 gauge x #100 ea 09/13/25 09/22/25 Unknown Rx (Comfort EZ Pen [place]) nut.tx.gluc.intol,lac-free,soy 1 ea PO TID 09/22/25 09/22/25 09/22/25 07:00 History (Glucerna oral liquid) Allergies Allergy/AdvReac Type Severity Reaction Status Date / Time No Known Allergies Allergy Verified 03/10/25 13:13 PFSH Acute PFSH: Medical History (Updated 09/22/25 @ 18:05 by Sj Pathak MD) CVA (cerebral vascular accident) Rotator cuff arthropathy of left shoulder Rupture of left proximal biceps tendon Type 2 diabetes mellitus Social History Smoking and tobacco/nicotine status: never used tobacco/nicotine Vitals/I&O/Wt Last Vital Signs Temp 97.8 F 09/22/25 11:12 Pulse 88 09/22/25 16:18 Resp 17 09/22/25 11:22 BP 116/70 09/22/25 14:00 Pulse Ox 100 09/22/25 16:18 O2 Del Method Room Air 09/22/25 15:05 09/22/25 09/22/25 09/22/25 06:59 14:59 22:59 Intake Total 1000 / 1000 Balance 1000 / 1000 Weight last 48 hrs Weight 61.689 kg Physical Exam Narrative: General: No acute distress, AO x3 HEENT: PERRLA, pupils bilaterally equal and reactive Chest: Normal vesicular breath sounds, no added sounds, equal good air entry bilaterally CVS: S1-S2 irregularly irregular, no murmurs, no tachycardia, no gallops, no rubs Abdomen: Soft, nontender, no organomegaly, bowel sounds present Neuro: No focal deficits, no facial deformity, AO x3, power 5/5 in all limbs Data 09/22/25 11:00 09/22/25 11:00 A&P Assessment and plan 1. Atrial flutter with rapid ventricular response: 2. Tachy-abner syndrome: 3. Hyperlipemia, mixed: 4. Type 2 diabetes mellitus: Plan: 85-year-old gentleman admitted through the ER with concerns for atrial flutter with rapid ventricular response alternating with bradycardia with concerns for tachybradycardia syndrome. Check echocardiogram. Appreciate TSH to be normal. Telemetry. Hold off on any rate limiting drugs for now. Monitor heart rate overnight. Will consult cardiology further recommendations for possible need for pacemaker implantation versus amiodarone. Discussed in detail with the patient regarding need for anticoagulation for stroke prevention. Patient is agreeable. Start on Lovenox 1 mg/kg body weight every 12 hourly. Type 2 diabetes mellitus: Check A1c. Insulin sliding scale at low-dose protocol. Full code Carb consistent diet Lovenox will be sufficient for DVT prophylaxis Protonix OPD prophylaxis PDMP PDMP Reviewed: Not Reviewed Attestations Medical Necessity Statement*: Admission under observation for management of tachybradycardia syndrome with atrial flutter Diagnoses Atrial flutter with rapid ventricular response I48.92 Tachy-abner syndrome I49.5 Hyperlipemia, mixed E78.2 Type 2 diabetes mellitus E11.9
[2025-09-22 17:07] LABS: Iron 163 ug/dL (59-158); Total Iron Binding Capacity 316 mcg/dl; Unsaturated Iron Binding 153 ug/dL (112-347)
[2025-09-22 17:23] LABS: Procalcitonin 0.05 ng/mL (0-0.5); Vitamin B12 1376 pg/mL (232-1245)
[2025-09-22 17:28] LABS: Troponin 5 6HR 58.05 ng/L (0-15)
[2025-09-22 17:29] LABS: Lactic Sepsis W/Reflex 1.6 mmol/L (0.5-2.2); Troponin 5 6HR Delta -7.95 ng/L (0-12)
[2025-09-22 18:02] LABS: Estmated Average Glucose 169; Hemoglobin A1C 7.5 % (4.0-6.0)
--- NOTE | 2025-09-22 18:05 | ECG_ITS ---
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 Measurements Intervals [place] Rate: 78 P: 0 [place]: 0 QRS: -3 QRSD: 96 T: 70 QT: 359 QTc: 410 Interpretive Statements ATRIAL FIBRILLATION WITH ABERRANT CONDUCTION OR VENTRICULAR PREMATURE COMPLEXES MODERATE ST DEPRESSION [0.05+ mV ST DEPRESSION] Compared to ECG 09/22/2025 13:28:01 Ventricular premature complex(es) now present Aberrant conduction of supraventricular beat(s) now present ST (T wave) deviation now present Sinus bradycardia no longer present Electronically Signed On 09-22-2025 23:49:59 AUTO BRAKE TECHNICIAN by Tommy Dye M.D. [email or web address]
--- NOTE | 2025-09-22 18:59 | PC.NURSE ---
received from er via stretcher at 1630.report received.pt is alert and oriented x 4.denies pain at present.heart rate noted to be erratic.sr in 50's to aflutter up to 100 bpm.bp stable.oriented to room environment.instructed to notify staff for any sob,pain,dizziness or for any concerns at all.pt verb understanding of instructions
[2025-09-23] VITALS: BP 132/88; PULSE 48; RESP 15; O2SAT 94
--- OUTSIDE RECORDS SUMMARY | 2025-09-23 00:30 | XMS_ITS | Encounter Summary ---
[facility] Address [address] [place] [address] Care Team Providers Care Rock Loader Name Role Phone Jeanie Goff MD Primary Care Provider [phone] Encounter Details Date Type Department Care Team (Latest Contact Info) Description 09/22/2001 Outpatient Historical [facility] Jarred Mendoza MD [address] [place] [address] DIABETES UNCOMPL ADULT-TYPE II (CMS/HCC) (Primary Dx); HYPERTENSION NOS; VACCINE FOR INFLUENZA Social History Tobacco Use Types Packs/Day Years Used Date Smoking Tobacco: Never Assessed Sex and Gender Information Value Date Recorded Sex Assigned at Not on file 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
--- OUTSIDE RECORDS SUMMARY | 2025-09-23 00:30 | XMS_ITS | Encounter Summary ---
Author Organization [facility] Address [address] [place] [address] Care Team Providers Care Funeral Car Driver Name Role Phone Jeanie Goff MD Primary Care Provider [phone] Encounter Details Date Type Department Care Team (Latest Contact Info) Description 04/08/2003 Outpatient Historical [facility] Cardiovascular Services [address] [phone] Adelfo Peace MD [address] [address] [place] [address] CHEST PAIN NOS (Primary Dx) Social History Tobacco Use Types Packs/Day Years Used Date Smoking Tobacco: Never Assessed Sex and Gender Information Value Date Recorded Sex Assigned at Not on file 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
--- OUTSIDE RECORDS SUMMARY | 2025-09-23 00:30 | XMS_ITS | Patient Health Record ---
Author Organization [facility] Address [address] [place] [address] Care Team Providers Care Drum Carrier Name Role Phone [facility] Primary Care Provider Ilda vailaashley Lo Cody Unavailable [phone] Allergies No Known Allergies Results Component Value Reference Range Flag Notes CT UE w/o contrast left Torn ier Protocol-16653 Reviewed date:04/21/2025 10:09:01 AM Interpretation: Performing Lab: Notes/Report: [id number]&[email or web address] Schedule Confirmation Reviewed date:04/21/2025 10:08:24 AM Interpretation: Performing Lab: Notes/Report: CT UE w/o contrast left Tornier Protocol XR Outside CD Reviewed date:04/21/2025 10:14:16 AM Interpretation: Performing Lab: Notes/Report: [id number]&org=iSite Chest PA/Lat-40836 Reviewed date:04/21/2025 10:08:51 AM Interpretation: Performing Lab: Notes/Report: [email or web address]=[id number]&org=iSite Schedule Confirmation Reviewed date:04/21/2025 10:08:19 AM Interpretation: Performing Lab: Notes/Report: CT UE w/o contrast left Tornier Protocol Chest PA/Lat-05255 Reviewed date:04/21/2025 10:07:59 AM Interpretation: Performing Lab: Notes/Report: See Below For Report Chest PA/Lat Diagnosis Description: Unspecified rotator cuff tear or rupture of left shoulder, not specified as traumatic Read See Below For Report CT UE w/o contrast left Torn ier Protocol-59402 Reviewed date:04/22/2025 09:13:43 AM Interpretation: Performing Lab: Notes/Report: See Below For Report CT UE w/o contrast left Tornier Protocol Diagnosis Description: Unspecified rotator cuff tear or rupture of left shoulder, not specified as traumatic Read See Below For Report UA Reflex Micro, Reflex Cult 50283, 68767, 47827 Reviewed date:05/10/2025 04:43:28 PM Interpretation: Performing Lab: Notes/Report: Diagnosis Description: Unspecified rotator cuff tear or rupture of left shoulder, not specified as traumatic Diagnosis Description: Essential (primary) hypertension Diagnosis Description: Encounter for other preprocedural examination Color UA Yellow NA Clarity UA Clear NA Specific gravity UA 1.012 1.005-1.030 Urine pH 6.0 5.0-8.0 NA Urine Glucose Negative NA Urine Bilirubin Negative NA Urine Ketone Negative NA Urine Blood Negative NA Urine Protein Negative NA Urobilinogen 0.2 0.1-1.0 NA Urine Nitrite Negative NA Urine Leukocyte Negative NA Normal UA Yes Urine Culture No CBC w\ Manual Diff 35449, 85 027 Reviewed date:05/10/2025 04:43:28 PM Interpretation: Performing Lab: Notes/Report: Diagnosis Description: Unspecified rotator cuff tear or rupture of left shoulder, not specified as traumatic Diagnosis Description: Essential (primary) hypertension Diagnosis Description: Encounter for other preprocedural examination WBC 5.5 4.5-11.0 X10'3 RBC 4.62 4.50-5.90 X10'6 Hgb 13.9 13.5-17.5 G/DL Hct 42.0 41.0-53.0 % MCV 90.9 80.0-100.0 FL MCH 30.1 27.0-31.0 PG MCHC 33.1 31.0-37.0 G/DL Platelet 167 150-400 X10'3 RDW-SD 43.7 35.0-49.0 FL RDW-CV 13.1 12.2-15.6 % MPV 10.8 9.2-12.0 FL Band/Segs Man 72 40-70 % HI Lymph Man 20 22-44 % LOW Monocyte Man 6 3-7 % Eos Man 1 2-4 % LOW Basophil Man 1 0-1 % PLT Appear Adequate RBC Morph Normal Morph Absolute Neutrophil Count 3960 NA Vitamin D Total (B) 71827 Reviewed date:05/10/2025 04:43:28 PM Interpretation: Performing Lab: Notes/Report: Diagnosis Description: Unspecified rotator cuff tear or rupture of left shoulder, not specified as traumatic Diagnosis Description: Essential (primary) hypertension Diagnosis Description: Encounter for other preprocedural examination Vitamin D Total 71.8 30.0-100.0 ng/mL Sufficiency: 30???100 ng/mL Insufficiency: 20??? < 30 ng/mL Deficiency: < 20 ng/mL Performed on the [facility] ([facility])llHythiam IM Analyzer Comprehensive Metabolic Pane ([facility]) 71094 Reviewed date:05/10/2025 04:43:28 PM Interpretation: Performing Lab: Notes/Report: Diagnosis Description: Unspecified rotator cuff tear or rupture of left shoulder, not specified as traumatic Diagnosis Description: Essential (primary) hypertension Diagnosis Description: Encounter for other preprocedural examination Glucose Serum 227 71-110 MG/DL HI Testing p erformed at [facility], [address] [place] [address] [place] [address]. CLIA ID#: [id number] BUN 21 7-21 MG/DL Creat .95 .57-1.17 MG/DL X-xxlpvs-d-benzoquino ne imine (NAPQI) is a metabolite of acetaminophen, NAPQI concentrations of apparoximately 10 mg/L correlation to toxic levels of acetaminophen demonstrates a greater than or equil to 10% change in results. NAPQI concentrations greater than this may lead to falsely depressed results for patient samples. Use of this assay is not recommended for patients undergoing treatment with phenindione, due to the potential for falsely depressed results. GFR 78.8 NA Calculation pe rformed from GFR calculator provided by the [employer]. Glomerular Filtration rate(GRF) is the best overall index of kidney function. Normal GFR varies according to age,sex, body size, and declines with age. The National Kidney Foundation recommends using the CKD-EPI Creatinine Equation(2020) to estimate GFR. BUN/Creat Ratio 22.1 12.0-20.0 % HI Total Protein 6.6 5.8-8.0 G/DL Albumin 4.5 3.2-4.8 G/DL Globulin 2.1 2.3-3.5 G/DL LOW Alb/Glob 2.1 0.8-2.2 Calcium 10.2 8.7-10.4 MG/DL Sodium 137 136-145 MMOL/L Potassium 4.3 3.5-5.1 MMOL/L Chloride 100 98-107 MMOL/L CO2 30.1 20.0-31.0 MMOL/L Anion Gap 11 5-15 Alk Phos 104 46-116 Bili Total .8 .3-1.2 MG/DL Use of this assay is not recommended for patients undergoing treatment with eltrombopag due to the potential for falsely elevated results. AST/SGOT 21 15-37 UNIT/L ALT/SGPT 10 12-78 UNIT/L LOW Osmo Serum,Calculated 294 280-300 MOSM/KG MRSA Screen PCR--[id number] Reviewed date:05/10/2025 04:43:28 PM Interpretation: Performing Lab: Notes/Report: Diagnosis Description: Unspecified rotator cuff tear or rupture of left shoulder, not specified as traumatic Diagnosis Description: Essential (primary) hypertension Diagnosis Description: Encounter for other preprocedural examination MRSA Screen NOT DETECTED NA Glucometer WBG--74629 Reviewed date:06/02/2025 03:19:36 PM Interpretation: Performing Lab: Notes/Report: Glucometer WBG 237 65-110 MG/DL HI Asymptom atic~Meter: [id number]~Agricultural Lender: [id number] CECI MCDANIEL Glucometer WBG--27227 Reviewed date:06/02/2025 03:19:36 PM Interpretation: Performing Lab: Notes/Report: Glucometer WBG 170 65-110 MG/DL HI Asymptom atic~Meter: [id number]~Agricultural Lender: [id number] CECI MCDANIEL US Surgery Unlisted Reviewed date:05/27/2025 12:26:37 PM Interpretation: Performing Lab: Notes/Report: This procedure was dictated and transcribed outside of the [employer] system. The results may be found in the patient's physical chart. FINAL REPORT Read This procedure was dictated and transcribed outside of the [employer] system. The results may be found in the patient's physical chart. Glucometer WBG--82406 Reviewed date:06/02/2025 03:19:36 PM Interpretation: Performing Lab: Notes/Report: Glucometer WBG 79 65-110 MG/DL Meter: [id number]~Agricultural Lender: [id number] MIKE PATTERSON Glucometer WBG--68012 Reviewed date:06/02/2025 03:19:36 PM Interpretation: Performing Lab: Notes/Report: Glucometer WBG 136 65-110 MG/DL HI Asymptom atic~Meter: [id number]~Agricultural Lender: [id number] CECI MCDANIEL Glucometer WBG--39162 Reviewed date:06/02/2025 03:19:36 PM Interpretation: Performing Lab: Notes/Report: Glucometer WBG 133 65-110 MG/DL HI Asymptom atic~Meter: [id number]~Agricultural Lender: [id number] CECI MCDANIEL Glucometer WBG--66445 Reviewed date:06/02/2025 03:21:36 PM Interpretation: Performing Lab: Notes/Report: Glucometer WBG 172 65-110 MG/DL HI Notify D r~Meter: [id number]~Agricultural Lender: [id number] RHONA PÉREZ Shoulder Min 1V Left Reviewed date:05/27/2025 12:26:17 PM Interpretation: Performing Lab: Notes/Report: [id number]&[email or web address]=iSite Shoulder Min 1V Left Reviewed date:05/27/2025 12:25:58 PM Interpretation: Performing Lab: Notes/Report: See Below For Report Shoulder 1V Left Read See Below For Report Glucometer WBG--07061 Reviewed date:06/02/2025 03:21:36 PM Interpretation: Performing Lab: Notes/Report: Glucometer WBG 189 65-110 MG/DL HI Asymptom atic~Meter: [id number]~Agricultural Lender: [id number] ISIDRO LEMON Glucometer WBG--15030 Reviewed date:06/02/2025 03:21:36 PM Interpretation: Performing Lab: Notes/Report: Glucometer WBG 356 65-110 MG/DL HI Sliding Scale Given~Meter: [id number]~Agricultural Lender: [id number] JEANNETTE INGRAM Basic Metabolic Panel (BMP) 92116 Reviewed date:06/02/2025 03:20:20 PM Interpretation: Performing Lab: Notes/Report: Sodium 139 136-145 MMOL/L Potassium 4.2 3.5-5.1 MMOL/L Chloride 103 98-107 MMOL/L CO2 26.6 20.0-31.0 MMOL/L Glucose Serum 253 71-110 MG/DL HI Testing p erformed at [facility], [address] [place] [address] [place] [address]. CLIA ID#: [id number] BUN 22 7-21 MG/DL HI Creat .99 .57-1.17 MG/DL T-zcxvec-i-benzoquino ne imine (NAPQI) is a metabolite of acetaminophen, NAPQI concentrations of apparoximately 10 mg/L correlation to toxic levels of acetaminophen demonstrates a greater than or equil to 10% change in results. NAPQI concentrations greater than this may lead to falsely depressed results for patient samples. Use of this assay is not recommended for patients undergoing treatment with phenindione, due to the potential for falsely depressed results. GFR 75.5 NA Calculation pe rformed from GFR calculator provided by the National Kid[employer] Foundation. Glomerular Filtration rate(GRF) is the best overall index of kidney function. Normal GFR varies according to age,sex, body size, and declines with age. The National Kidney Foundation recommends using the CKD-EPI Creatinine Equation(2020) to estimate GFR. Anion Gap 14 5-15 BUN/Creat Ratio 22.2 12.0-20.0 % HI Calcium 8.6 8.7-10.4 MG/DL LOW Osmo Serum,Calculated 300 280-300 MOSM/KG CBC Reflex Man Diff 02619, 8 5007 Reviewed date:06/02/2025 03:20:20 PM Interpretation: Performing Lab: Notes/Report: WBC 6.5 4.5-11.0 X10'3 RBC 3.57 4.50-5.90 X10'6 LOW Hgb 11.0 13.5-17.5 G/DL LOW Hct 32.5 41.0-53.0 % LOW MCV 91.0 80.0-100.0 FL MCH 30.8 27.0-31.0 PG MCHC 33.8 31.0-37.0 G/DL Platelet 141 150-400 X10'3 LOW RDW-SD 44.0 35.0-49.0 FL RDW-CV 13.1 12.2-15.6 % MPV 10.3 9.2-12.0 FL Review Auto Diff Conf WBC Auto Diff--05168 Reviewed date:06/02/2025 03:20:20 PM Interpretation: Performing Lab: Notes/Report: Added by Discern Rules Neutro Auto% 81.1 40.0-70.0 % HI Lymph Auto% 10.2 22.0-44.0 % LOW Avery Auto% 7.6 3.0-7.0 % HI Eos Auto% .2 2.0-4.0 % LOW Baso Auto% 0.6 0.0-1.0 % NRBC% .00 .00-.20 /100 intact WBC's Neutro Abs 5.26 .80-7.70 Absolute Neutrophil Count 5260 NA Lymph Abs .66 .10-4.10 Avery Abs .49 .20-1.00 Eos Abs .01 .00-.40 Baso Abs .04 .00-.20 NRBC# .00 .00-.20 Imm Gran Abs .02 .00-.10 Imm Gran% .3 .0-.4 % Glucometer WBG--26026 Reviewed date:06/02/2025 03:20:20 PM Interpretation: Performing Lab: Notes/Report: Glucometer WBG 217 65-110 MG/DL HI Sliding Scale Given~Meter: [id number]~Agricultural Lender: [id number] ROLO NOAH Glucometer WBG--18545 Reviewed date:06/02/2025 03:20:20 PM Interpretation: Performing Lab: Notes/Report: Glucometer WBG 221 65-110 MG/DL HI Asymptom atic~Meter: [id number]~Agricultural Lender: [id number] MARLENE JOVANY Shoulder Min 1V Left Reviewed date:07/07/2025 03:21:46 PM Interpretation: Performing Lab: Notes/Report: [email or web address]=[id number]&[email or web address]=Luci Shoulder Min 1V Left Reviewed date:07/07/2025 03:19:36 PM Interpretation: Performing Lab: Notes/Report: The report for this exam was dictated at [facility] . FINAL REPORT Read The report for this exam was dictated at [facility] . 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) Referral Organization [facility] Referring Provider First Name Cody Referring Provider Last Name Lo Referring Provider Speciality Orthopedic Surgery Referred Provider [facility] Referred Provider Specialty Physical The rapist Clinical Notes Winter Mcadams 025 11:41:10 AM CDT > scheduled to start pt 07/21 Referral Priority Routine Medications Medication SIG (Take, Route, Frequency, Duration) Notes Start Date End Date Status Rosuvastatin Calcium 10 MG Tablet 1 tablet Orally Once a day Active Victoza 2-Galindo *[facility] and Interaction Alerts* Not-Taking Pioglitazone HCl 45 MG Tablet 1 tablet Orally Once a day Active Rosuvastatin *[facility] and Interaction Alerts* Not-Taking Multivitamin *Pick strength-f orm from [facility] for [facility]* Active Metformin hydrochloride 1000 MG Oral Tablet Metformin hydrochloride 1000 MG Oral Tablet 10/01/2013 Not-Taking Magnesium 250 MG Tablet 1 tablet with a meal Orally Once a day Active Metformin *[facility] for [facility] and Interaction Alerts* Not-Taking Aspirin *Pick strength-f orm [facility]* Not-Taking Tamsulosin HCl 0.4 MG Capsule 1 capsule Orally Once a day Active Vitamin B-12 *Pick strength-f orm [facility]* Not-Taking SITagliptin 100 MG Tablet 1 tablet Orally Once a day Active Vitamin B 12 0.1 MG Oral Tablet Vitamin B 12 0.1 MG Oral Tablet 10/01/2013 Not-Taking Finasteride 5 MG Oral Tablet Finasteride 5 MG Oral Tablet 10/01/2013 Active Lisinopril 5 MG Oral Tablet Lisinopril 5 MG Oral Tablet 10/01/2013 Not-Taking Aspirin 81 MG Oral Tablet Aspirin 81 MG Oral Tablet 10/01/2013 Active Glipizide 10 MG Oral Tablet Glipizide 10 MG Oral Tablet 10/01/2013 Not-Taking glipiZIDE *[facility] strength[facility]f [facility]m [facility]* Not-Taking Finasteride *Pick strength-f orm [facility]* Not-Taking Immunizations Vaccine Route Administration Date Status Comme nts Influenza (whole), CPT 84399 Inactive Unknown 10/18/2016 Administered Social History Tobacco Use: Social History Observation Description Date Details (start date - stop date) Never Smoker NA - NA Social History Tobacco Use: Social Info Question Answer Notes Tobacco Control (Standard) Tobacco use: Nonsmoker Additional Details Category Social Info Options Details Drugs/Alcohol: Do you smoke marijuana? De nies Do you drink alcohol? No Migrated Social History Migrated Social History History of tobacco use : , Smoking Status : Never used tobacco Problems Problem Type SNOMED Code ICD Code Onset Dates Problem Status W/U Status Risk Notes Problem Essential hypertension (77361598) Essential (primary) hypertension (I10) Active confirmed Problem Rotator cuff arthropathy of left shoulder (disorder) (5996173144877373 0) Other specific arthropathies, not elsewhere classified, left shoulder (M12.812) Active confirmed Problem Nontraumatic rupture of muscle or tendon structure of rotator cuff of left shoulder (disorder) (4994791796270363 ) Unspecified rotator cuff tear or rupture of left shoulder, not specified as traumatic (M75.102) Active confirmed Problem 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 Problem 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) (5807283800251756 2) 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 Problem 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) (393849264) 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) Active confirmed Problem Nontraumatic rotator cuff tear, left (M75.102) Active confirmed Problem History of cerebrovascular accident without residual deficits (978844903) Personal history of transient ischemic attack (TIA), and cerebral infarction without residual deficits (Z86.73) Active confirmed [id number] med Description:H/O : TIA Problem Type II diabetes mellitus without complication (886530084) Type 2 diabetes mellitus without complications (E11.9) Active confirmed [id number] med Description:Typ e 2 diabetes mellitus Problem Mixed hyperlipidemia (503669247) Mixed hyperlipidemia (E78.2) Active confirmed [id number] med Description:Mix ed hyperlipidemia Problem Essential hypertension (30066070) Essential primary hypertension (I10) Active confirmed [id number] med Description:Ess ential hypertension Vital Signs Heart Rate 72 /min 09/02/2025 Blood pressure diastolic 54 mm Hg 09/02/2025 Oximetry 97 % 09/02/2025 Height-cm 182.88 cm 09/02/2025 Weight-kg 64.3 kg 09/02/2025 Height 72.00 in 09/02/2025 Blood pressure systolic 102 mm Hg 09/02/2025 Weight 141.76 lbs 09/02/2025 BMI 19.22 kg/m2 09/02/2025 Encounters Encounter Location Date Provider Diagnosis [facility] [address] [id number] [place] [address] 04/20/2025 Cody Lo Unspecified rotator cuff tear or rupture of left shoulder, not specified as traumatic M75.102 ; Other specific arthropathies, not elsewhere classified, left shoulder M12.812 ; Essential (primary) hypertension I10 and Encounter for preoperative examination for general surgical procedure Z01.818 [facility] [address] [place] [address] 09/02/2025 Cody Lo Status post reverse total arthroplasty of left shoulder Z96.612 [facility] [address] [place] [address] 05/31/2025 Cody Lo Encounter for postoperative wound check Z48.89 [facility] [address] [place] [address] 07/06/2025 Cody Lo Status post reverse total replacement of left shoulder Z96.612 [facility] [address] [place] [address] 05/24/2025 Cody Lo [facility] [address] [place] [address], [place] [address] 06/21/2025 Cody Lo [facility] [address] [place] [address], [place] [address] 08/18/2025 Cody Lo Assessments Encounter Date Diagnosis (ICD Code) Assessment Notes Treatment Notes Treatment Clinical Notes Section Notes 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 This man also is a diabetic. However he has received clearance from his physicians at the [place] for orthopedic care on his left shoulder. Specifically, for surgical intervention with the left shoulder. Risk of the surgery are exacerbated with this individual because of his history of diabetes. I told him as much. Other risk such as nerve injury bleeding are discussed and accepted as well. Proposed procedure: Left reverse total shoulder arthroplasty. CT scan for planning will be done. 05/31/2025 Encounter for postoperative wound check (ICD-10 - Z48.89) 07/06/2025 Status post reverse total replacement of left shoulder (ICD-10 - Z96.612) This individual is doing extremely well. He has very little if any postoperative pain. I am going to go ahead and start his physical therapy program through [facility] at their [place], [place] clinic. Will recheck in 2 months. 09/02/2025 Status post reverse total arthroplasty of left shoulder (ICD-10 - Z96.612) This man's physical examination looks excellent. He is doing quite well. With 3-1/2 months out at this time. After discussion with the patient we both agreed we will see him in 9 months for follow-up this will bring him up to 1 year from surgery. 04/20/2025 Essential (primary) hypertension (ICD-10 - I10) 04/20/2025 Encounter for preoperative examination for general surgical procedure (ICD-10 - Z01.818) 05/31/2025 Other Patient was in for wound check after left reverse total shouder surgery on 05/24/2025. Patient was made comfortable in exam room. Protocol questions were asked and answered. Immobliizer sling and dressings were removed. Incision sites were examined and no redness or inflammation was noted with incision edgeswell approximated. Site cleaned with alcohol and allowed to dry. Subdermal sutures holding well. Dressings were placed for patient comfort and immobilizer sling was put back on. Aftercare education was given and patient verbalized understanding. All questions and concerns were addressed. A followup appointment was made. Sonia Ferreira LPN Plan Of Treatment Pending Test Test Name Order Date Shoulder 2V 07/06/2025 MRSA Screen PCR--75224 04/20/2025 Comprehensive Metabolic Panel (CMP) 8005 3 04/20/2025 Vitamin D Total (B) 10541 04/20/2025 CBC w\ Manual Diff 92748, 50740 04/20/20 25 UA Reflex Micro, Reflex Cult 37574, 8101 5, 85685 04/20/2025 Electrocardiogram 12 Lead Tracing-68049 04/20/2025 Next Appt Details Provider Name:Cody Lo, 06/02/2026 08:00:00 AM, [address] [facility], [place], [address], Insurance Providers Payer Name Payer Address Payer Phone Subscriber Number Group Number Insured Name Patient Relationship to Insured Coverage Start Date Coverage End Date [employer] [address] [place] [phone] [id number] Carlos Alberto Lares Self - patient is the insured Medical (General) History Medical History History ICD Code Arthritis, measles Diabetes, chicken pox High blood pressure, diabetes History of measles, mumps, or rubella, Stroke, Surgical History Surgery Date(Month/Year) Knee replacement surgery left shoulder surgery
--- OUTSIDE RECORDS SUMMARY | 2025-09-23 00:30 | XMS_ITS | Encounter Summary ---
Author Organization [facility] Address [address] [place] [address] Care Team Providers Care Java Software Engineer Name Role Phone Jeanie Goff MD Primary Care Provider [phone] Encounter Details Date Type Department Care Team (Late st Contact Info) Description 04/08/2003 Outpatient Historical [facility] [place] [address] 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
--- OUTSIDE RECORDS SUMMARY | 2025-09-23 00:31 | XMS_ITS | Clinical Summary ---
Author Organization [facility] Address [address] [facility] Attn: Epic [place] [address] Care Team Providers Care Wheel Assembler Name Role Phone Jeanie Goff MD Primary Care Provider [phone] Allergies No known active allergies Medications vit [...] on file Legal Sex Male 6:44 AM SPEECH PATHOLOGIST Gender Identity Not on file Sexual Orientation Not on file Last Filed Vital Signs Vital Sign Reading Time Taken Comments Blood Pressure 158/88 10/25/2019 7:08 PM SPEECH PATHOLOGIST Pulse 75 10/25/2019 4:45 PM SPEECH PATHOLOGIST Temperature 36.5 C (97.7 F) 10/25/2019 4:16 PM SPEECH PATHOLOGIST Respiratory Rate 16 10/25/2019 7:08 PM SPEECH PATHOLOGIST Oxygen Saturation - - Inhaled Oxygen Concentration - - Weight 63.5 kg (140 lb) 10/25/2019 4:16 PM SPEECH PATHOLOGIST Height 180.3 cm (5' 11 ) 10/25/2019 4:16 PM SPEECH PATHOLOGIST Body Mass Index 19.53 10/25/2019 4:16 PM SPEECH PATHOLOGIST Plan of Treatment Upcoming Encounters Date Type Department Care Team (Late st Contact Info) Description 10/20/2025 9:15 AM SPEECH PATHOLOGIST Office Visit [facility] [address] [phone] Richie García MD [address] [place] [address] Health Maintenance Due Date Last Done [...] exists INFLUENZA VACCINE (#1) 2025 09/22/2001 Insurance [facility] [employer] [place] [employer] Care Teams Wheel Assembler Relationship Specialty Start Date End Date Jeanie Goff MD [address] [place] [id number] PCP - General Internal Medicine 01/28/17
--- OUTSIDE RECORDS SUMMARY | 2025-09-23 00:31 | XMS_ITS | Clinical Summary ---
Author Organization [facility] Address [address] [place] [address] Care Team Providers Care Rn Outpatient Surgery Name Role Phone Jeanie Goff MD Primary Care Provider [phone] Allergies No known active allergies Medications METFORMIN [...] on file Legal Sex Male 4:34 AM DIRECTOR OF STUDENT FINANCIAL SERVICES Gender Identity Not on file Sexual Orientation Not on file Last Filed Vital Signs Vital Sign Reading Time Taken Comments Blood Pressure 158/88 10/25/2019 7:08 PM DIRECTOR OF STUDENT FINANCIAL SERVICES Pulse 75 10/25/2019 4:45 PM DIRECTOR OF STUDENT FINANCIAL SERVICES Temperature 36.5 C (97.7 F) 10/25/2019 4:16 PM DIRECTOR OF STUDENT FINANCIAL SERVICES Respiratory Rate 16 10/25/2019 7:08 PM DIRECTOR OF STUDENT FINANCIAL SERVICES Oxygen Saturation 98% 10/25/2019 7:08 PM DIRECTOR OF STUDENT FINANCIAL SERVICES Inhaled Oxygen Concentration - - Weight 63.5 kg (140 lb) 10/25/2019 4:16 PM DIRECTOR OF STUDENT FINANCIAL SERVICES Height 180.3 cm (5' 11 ) 10/25/2019 4:16 PM DIRECTOR OF STUDENT FINANCIAL SERVICES Body Mass Index 19.53 10/25/2019 4:16 PM DIRECTOR OF STUDENT FINANCIAL SERVICES Plan of Treatment Health Maintenance Due Date [...] 09/22/2001 Insurance MEDICARE PART A AND B [employer] Care Teams Rn Outpatient Surgery Relationship Specialty Start Date End Date Jeanie Goff MD [address] [place] [id number] PCP - General Internal Medicine 01/28/17
[2025-09-23 00:58] LABS: Glucose Urine UA 3+ (Normal); Nitrate Urine Negative (Negative); Specific Gravity, Urine 1.019 (1.005-1.030)
[2025-09-23 01:03] LABS: Add Urine Microscopic? YES
[2025-09-23 04:00] VITALS: BP 107/62; PULSE 75; RESP 6; TEMP 36.6; O2SAT 99
[2025-09-23] MEDS: ATORVASTATIN 10 MG TABLET PO (05:22)
[2025-09-23 05:23] LABS: Hematocrit 38.8 % (37-53); Hemoglobin 13.00 g/dL (11.27-16.99); Mean Corpuscular HGB Conc 33.5 g/dL (30-55); Mean Corpuscular Hemoglobin 30.1 pg (27-33); Mean Corpuscular Volume 89.8 fl (82-101); Nucleated Red Blood Cells % 0 %; Platelet Count 154 10^3/cmm (157-399); Red Blood Count 4.32 10^6/uL (3.85-5.65); White Blood Count 5.13 10^3/uL (3.29-11.43)
[2025-09-23 05:49] LABS: Alanine Aminotransferase 8 U/L (0-41); Albumin Level 3.7 g/dL (3.5-5.2); Alkaline Phosphatase 87 U/L (40-130); Anion Gap 11.7 (5-19); Aspartate Amino Transferase 15 U/L (0-40); Blood Urea Nitrogen 27 mg/dL (8-23); Calcium 9.2 mg/dL (8.5-10.5); Carbon Dioxide 27 mmol/L (22-29); Chloride 108 mmol/L (98-107); Creatinine Clr Calc Pharmacy 62.9827; Globulin 1.9 g/dL (1.3-4.6); Glucose 146 mg/dL (65-115); Magnesium 1.5 mg/dL (1.7-2.3); Osmolality Calculated 302 mOsm/kg (285-295); Potassium 4.7 mmol/L (3.5-5.1); Sodium 142 mmol/L (136-145); Total Protein 5.6 g/dL (6.6-8.7)
[2025-09-23 05:50] LABS: Cholesterol 110 mg/dL (0-200); HDL Cholesterol 49 mg/dL (60-100); Triglycerides 80 mg/dL (0-150)
[2025-09-23 05:51] LABS: Procalcitonin 0.04 ng/mL (0-0.5)
[2025-09-23 07:42] VITALS: BP 135/71; PULSE 60; RESP 25; TEMP 35.9; O2SAT 95
--- NOTE | 2025-09-23 11:11 | P.CONIM_ITS ---
<Statement entered by Monserrat Brennan MD - 09/24/25 19:30> Patient was evaluated and cared for in conjunction with an advanced practice practitioner. I personally examined the patient and reviewed the chart and all pertinent data including imaging, telemetry, and laboratory results. I discussed the patient in detail with the advanced practice practitioner. Please see their note for complete H&P testing result and agreed upon plan of care for the patient. Providers/Reason For Consult 2 Consulting Physician/Specialty*: Dr Sonja Brennan, interventional cardiology Reason for Consult*: possible tachybrady syndrome, new onset atrial flutter Requesting Physician: Dr Pathak Attending Physician: Sj Pathak MD History of Present Illness History of Present Illness Carlos Alberto Lares is a 85 year old male with past medical history of CVA, type 2 diabetes. He was sent to the ER from podiatry clinic due to rapid heart rate. He was found to have atrial flutter with rate in the 130's, converted to sinus rhythm with metoprolol, but became bradycardic in the upper 40's. No previous cardiac studies in our system, he denies any history of IN, previous stents. He has had high blood pressure in the past but currently normotensive and not taking any antihypertensives, also no antiarrhythmic medications. No known sleep apnea. Normal TSH. No fever or signs of infection. He denies any recent chest pain, shortness of breath. He is sometimes dizzy or lightheaded while sitting still and sometimes while standing. He could not feel when heart rate was fast. Review of Systems 2 Const: Denies: fever(s), chills, change in weight, fatigue or diaphoresis Eyes: Denies: change in vision ENMT: Denies: epistaxis Card: Reports: pre-syncope (lightheaded ); Denies: chest pain, palpitations, irregular heart rhythm, edema, syncope, dyspnea on exertion, orthopnea or leg pain with exertion Resp: Denies: dyspnea, productive cough or wheezing GI: Denies: nausea, vomiting, hematemesis, hematochezia or melena : Denies: hematuria Musc: Denies: extremity swelling Yuri/Lymph: Denies: easy bruising or easy bleeding Medications/Allergies Home Medications ?Medication ?Instructions ?Recorded ?Confirmed ?Last Taken ?Type aspirin 81 mg tablet,delayed 81 mg PO DAILY 10/03/22 1 11/22/24 09/21/25 History release finasteride 5 mg tablet 5 mg PO DAILY 10/03/2209/2209/21/25 19:00 History multivitamin (One Daily 1 tab PO DAILY 10/03/22 11/04/1109/22/25 History Multivitamin tablet) magnesium 250 mg tablet 250 mg PO DAILY 03/02/2504/1109/22/25 History mecobalamin (vitamin B12) 500 mcg 500 mcg PO DAILY 09/22/25 09/22/25 History chewable tablet prevagen 1 cap PO BID 03/02/2509/22/25 08:00 History rosuvastatin 10 mg tablet 5 mg PO DAILY 03/02/2509/2209/21/25 19:00 History sitagliptin 100 mg tablet 100 mg PO DAILY 03/02/2504/1109/22/25 08:00 History blood-glucose sensor (Dexcom G7 #9 ea 08/23/25 5 Unknown Rx Sensor device) insulin aspart U-100 100 unit/mL 3 unit (0.03 mL) SUBC UT TID #15 mL 08/23/25 09/22/25 09/22/25 Rx (3 mL) subcutaneous pen (Novolog FlexPen U-100 Insulin aspart) pen needle, diabetic 33 gauge x #100 ea 09/13/2509/22 Unknown Rx 5/32 (Comfort EZ Pen [place]) nut.tx.gluc.intol,lac-free,soy 1 ea PO TID 09/22/2509/22/25 07:00 History (Glucerna oral liquid) Allergies Allergy/AdvReac Type Severity Reaction Status Date / Time No Known Allergies Allergy Verified 03/10/25 13:13 Current Medications Generic Name Dose Route Start Last Admin Trade Name Freq PRN Reason Stop Dose Admin Aspirin 81 mg 09/23/25 05:00 09/23/25 05:22 Aspirin 81 Mg Ec Tablet PO 81 mg DAILY SANDEEP Administration Atorvastatin Calcium 10 mg 09/23/25 05:00 09/23/25 05:22 Atorvastatin 10 Mg Tablet PO 10 mg DAILY SANDEEP Administration Docusate Sodium 100 mg 09/22/25 17:00 09/23/25 05:21 Docusate Sodium 100 Mg Capsule PO Not Given BID SNADEEP Enoxaparin Sodium 60 mg 09/22/25 20:00 09/22/25 21:09 Enoxaparin 60 Mg/0.6 Ml Syringe SUBCUT 60 mg Q24H SANDEEP Administration Famotidine 20 mg 09/22/25 17:00 09/23/25 05:22 Famotidine 20 Mg Tablet PO 20 mg BID SANDEEP Administration Finasteride 5 mg 09/23/25 05:00 09/23/25 05:22 Finasteride 5 Mg Tablet PO 5 mg DAILY SANDEEP Administration Sodium Chloride 1,000 mls @ 50 mls/hr 09/22/25 16:45 09/22/25 17:05 Sodium Chloride 0.9% IV 09/23/25 12:44 50 mls/hr .Q20H SANDEEP Administration PFSH Acute 2 PFSH: Medical History CVA (cerebral vascular accident) Rotator cuff arthropathy of left shoulder Rupture of left proximal biceps tendon Type 2 diabetes mellitus Social History Smoking and tobacco/nicotine status: never used tobacco/nicotine Vitals/I&O/Wt Last Vital Signs Temp 96.6 F L 09/23/25 07:42 Pulse 60 09/23/25 07:42 Resp 25 H 09/23/25 07:42 BP 135/71 09/23/25 07:42 Pulse Ox 95 09/23/25 07:42 O2 Del Method Room Air 09/23/25 07:42 09/22/25 09/23/25 09/23/25 22:59 06:59 14:59 Intake Total 240 / 1360 120 / 1360 240 / 240 Balance 240 / 1360 120 / 1360 240 / 240 Weight last 48 hrs Weight 145 lb 1.027 oz Weight 146 lb 5 oz Weight 136 lb Physical Exam 2 Const: COMMON NORMALS: no acute distress and patient oriented x3 GENERAL APPEARANCE: cooperative and comfortable ORIENTATION/CONSCIOUSNESS: Yes awake, Yes oriented to person, Yes oriented to place and Yes oriented to time Chest: COMMONS NORMALS: normal inspection of the chest and normal palpation of entire chest wall CHEST: Yes Symmetrical chest wall rise Resp: COMMON NORMALS: normal respiratory effort, No retractions, No use of accessory muscles and clear to auscultation bilaterally EFFORT & INSPECTION: Yes symmetric chest movement AUSCULTATION: clear to auscultation bilaterally Cardio: COMMON NORMALS: regular rate, regular rhythm, S1 normal heart sound present, S2 normal heart sound present, No gallops present (Cardio), No clicks present (Cardio), No murmurs present (Cardio) and No rub (Cardio) RATE: r egular rate RHYTHM: regular rhythm HEART SOUNDS: S1 normal heart sound present and S2 normal heart sound present PERIPHERAL PULSES: radial pulses present Extremity: COMMON NORMALS: no pedal edema Neuro: COMMON NORMALS: patient oriented x3 and moves all extremities S ENSORIUM/ORIENTATION: Yes oriented to person, Yes oriented to place and Yes oriented to time Data 09/23/25 04:45 09/23/25 04:45 A&P Assessment and plan 1. Tachy-abner syndrome: 2. Atrial flutter with rapid ventricular response: 3. Type 2 diabetes mellitus: 4. Hyperlipemia, mixed: Plan: He has possible tachybrady syndrome, with symptomatic bradycardia which could be due to possible heart block. He requires ischemic workup with exercise MIBI tomorrow. If echocardiogram and stress test is normal, will plan to discharge tomorrow with 30 day event monitor, as needed metoprolol for rate control and close follow up in the cardiology clinic. PDMP PDMP Reviewed: Not Reviewed Coding Level of Care Code Acute Code for [facility] Diagnoses Tachy-abner syndrome I49.5 Atrial flutter with rapid ventricular response I48.92 Type 2 diabetes mellitus E11.9 Hyperlipemia, mixed E78.2
--- NOTE | 2025-09-23 11:14 | ECG_ITS ---
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 Interpretive Statements Lung unchanged pre/post procedure; Intraprocedure shortess of breath; Symptoms resoled by discharge PROCEDURE: At the baseline, the patient's blood pressure was 154/73 with a heart rate of 55. The baseline electrocardiogram showed sinus bradycardia with some nonspecific T wave changes The patient exercised for 6 minutes and 47 seconds on a [standard Franki protocol]. Patient attained a maximum heart rate of 124 beats per minute(91% of the maximum predicted heart rate) with a blood pressure at the peak exercise of 143/107 mm Hg. The EKG at the peak exercise revealed no significant changes. Patient did [not have any chest pain or any significant cardiac arrhythmias with the exercise] During the recovery phase, there were no new changes. [] Blood pressure at the end of the recovery phase was 175/81 mm Hg with a heart rate of 59 per minute. CONCLUSION: 1. No significant EKG changes with the treadmill exercise [] 2. [No exercise-induced chest pain or cardiac arrhythmia] 3. Slightly impaired exercise tolerance, attained a maximum of 7.0 METs Electronically Signed On 09-24-2025 19:47:12 BLACK ASH BURNER OPERATOR by Tommy Dye M.D. [email or web address]
[2025-09-23 11:18] VITALS: BP 136/68; PULSE 48; RESP 13; TEMP 35.7; O2SAT 98
[2025-09-23] MEDS: magnesium sulfate premix 2 GM/50 ML PIGGYBACK IV (11:47)
--- NOTE | 2025-09-23 12:04 | P.PN_ITS ---
Subjective 2 Subjective: Acute events overnight. Patient states he has had no symptoms. Overnight on telemetry his heart rate went down to 30s. Did have few episodes of quartered running into the 120s. Denies any nausea, vomiting. Vitals/I&O/Wt Last Vital Signs Temp 96.3 F L 09/23/25 11:18 Pulse 48 L 09/23/25 11:18 Resp 13 09/23/25 11:18 BP 136/68 09/23/25 11:18 Pulse Ox 98 09/23/25 11:18 O2 Del Method Room Air 09/23/25 11:18 09/22/25 09/23/25 09/23/25 22:59 06:59 14:59 Intake Total 240 / 1240 120 / 1360 240 / 240 Balance 240 / 1240 120 / 1360 240 / 240 Weight last 48 hrs Weight 65.8 kg Weight 66.366 kg Weight 61.689 kg Physical Exam 2 Narrative: General: No acute distress, AO x3 HEENT: PERRLA, pupils bilaterally equal and reactive Chest: Normal vesicular breath sounds, no added sounds, equal good air entry bilaterally CVS: S1-S2 irregularly irregular, no murmurs, no tachycardia, no gallops, no rubs Abdomen: Soft, nontender, no organomegaly, bowel sounds present Neuro: No focal deficits, no facial deformity, AO x3, power 5/5 in all limbs Data 09/23/25 04:45 09/23/25 04:45 A&P Assessment and plan 1. Atrial flutter with rapid ventricular response: 2. Tachy-abner syndrome: 3. Hyperlipemia, mixed: 4. Type 2 diabetes mellitus: Plan: 85-year-old gentleman admitted through the ER with concerns for atrial flutter with rapid ventricular response alternating with bradycardia with concerns for tachybradycardia syndrome. Check echocardiogram. Appreciate TSH to be normal. Telemetry. Hold off on any rate limiting drugs for now. Monitor heart rate overnight. Will consult cardiology further recommendations for possible need for pacemaker implantation versus amiodarone. Discussed in detail with the patient regarding need for anticoagulation for stroke prevention. Patient is agreeable. Start on Lovenox 1 mg/kg body weight every 12 hourly. Type 2 diabetes mellitus: A1c 7.5. Insulin sliding scale at low-dose protocol. Full code Carb consistent diet Lovenox will be sufficient for DVT prophylaxis Protonix OPD prophylaxis Plan for the day: Heart rate dropping down to 30s and going up to 120s. Concern for atrial flutter converting back and forth to normal sinus rhythm with heart block versus tachybradycardia syndrome. Cardiology consulted. Possibly need for further evaluation with exercise stress test versus possible pacemaker implantation. Continue telemetry. TSH normal. Holding off on rate limiting medications for now. Echocardiogram pending. A1c 7.5. Continue with insulin sliding scale for now. Replace magnesium. PDMP PDMP Reviewed: Not Reviewed Attestations 2 Medical Necessity Statement*: Requires further hospitalization for management of atrial flutter with rapid ventricular response, labile heart rate with concern for tachybradycardia syndrome, bradycardia Diagnoses Atrial flutter with rapid ventricular response I48.92 Tachy-abner syndrome I49.5 Hyperlipemia, mixed E78.2 Type 2 diabetes mellitus E11.9
[2025-09-23 16:00] VITALS: BP 139/72; PULSE 51; RESP 17; TEMP 35.9; O2SAT 96
[2025-09-23 21:13] VITALS: BP 176/88; PULSE 64; RESP 18; TEMP 36.3; O2SAT 96
[2025-09-24 00:08] VITALS: BP 112/62; PULSE 57; RESP 13; TEMP 36.3; O2SAT 96
[2025-09-24 04:41] LABS: Hematocrit 36.8 % (37-53); Hemoglobin 12.20 g/dL (11.27-16.99); Mean Corpuscular HGB Conc 33.2 g/dL (30-55); Mean Corpuscular Hemoglobin 29.5 pg (27-33); Mean Corpuscular Volume 89.1 fl (82-101); Nucleated Red Blood Cells % 0 %; Platelet Count 152 10^3/cmm (157-399); Red Blood Count 4.13 10^6/uL (3.85-5.65); White Blood Count 4.67 10^3/uL (3.29-11.43)
[2025-09-24 05:02] LABS: Alanine Aminotransferase < 5 U/L (0-41); Albumin Level 3.6 g/dL (3.5-5.2); Alkaline Phosphatase 84 U/L (40-130); Anion Gap 15.6 (5-19); Aspartate Amino Transferase 14 U/L (0-40); Blood Urea Nitrogen 24 mg/dL (8-23); Calcium 8.8 mg/dL (8.5-10.5); Carbon Dioxide 24 mmol/L (22-29); Chloride 107 mmol/L (98-107); Creatinine Clr Calc Pharmacy 62.9827; Globulin 1.9 g/dL (1.3-4.6); Glucose 193 mg/dL (65-115); Magnesium 1.7 mg/dL (1.7-2.3); Osmolality Calculated 303 mOsm/kg (285-295); Potassium 4.6 mmol/L (3.5-5.1); Sodium 142 mmol/L (136-145); Total Protein 5.5 g/dL (6.6-8.7)
[2025-09-24 05:23] VITALS: BP 153/75; PULSE 59; RESP 14; TEMP 36.6; O2SAT 94
[2025-09-24] MEDS: ATORVASTATIN 10 MG TABLET PO (05:29)
[2025-09-24 07:23] VITALS: BP 175/81; PULSE 71
[2025-09-24 08:00] VITALS: BP 140/73; PULSE 53; RESP 19; TEMP 36.4; O2SAT 99
--- NOTE | 2025-09-24 11:14 | NMCV_ITS ---
NM [facility] perf SPECT r/s* [id number] Carlos Alberto Lares Age: 85 Gender: M : 1940 Exam Date: 09/24/2025 06:23 Ordering Phys: Maris Sal Technologist: SONJA Yu Exam Location: [facility] Indications: cp STRESS TEST Please see separate stress test report in [facility] for full findings IMAGE PROTOCOL Rest/Stress 1 Exercise Day Radiopharmaceutical Dose (mCi) Administration Site Administered by Rest: Tc-99m 10.6 IV Yenny Austin DIGITAL CAMERA TECHNICIAN Sestamibi Stress:Tc-99m 32.3 IV Yenny Austin, DIGITAL CAMERA TECHNICIAN Sestamibi Rest: 24-Sep-2025 60 Discovery 630 Stress: 24-Sep-2025 15 Discovery 630 Radiopharmaceutical was injected at 85 % maximum heart rate. Images obtained in supine and prone position. SPECT RESULTS Technical Quality: Good Raw Data Analysis: Normal Image Corrections: No attenuation or motion correction applied Summed Stress Score: 0 Summed Rest Score: 2 Summed Difference Score: 0 PERFUSION FINDINGS Fairly uniform myocardial tracer uptake. No significant perfusion abnormalities were noted. FUNCTIONAL RESULTS (calculated via Gated SPECT) Stress Image LV EF (%): 59 Stress EDV (mL):103 TID: 0.95 Stress ESV (mL):42 FUNCTIONAL FINDINGS: Segmental wall motion analysis revealing no gross wall motion abnormalities IMPRESSIONS 1. Myocardial perfusion imaging revealing fairly uniform myocardial tracer uptake 2. Normal LV ejection fraction of 59%. 3. LV wall motion analysis revealing no gross wall motion abnormalities. 4. Normal LV volume Low probability for coronary ischemia, based on the above findings Dr Tommy Dye MD FAC (Electronically Signed) Final Date: 24 September 2025 08:13 S
[2025-09-24 11:46] VITALS: BP 141/79; PULSE 55; RESP 13; TEMP 36.5; O2SAT 98
--- NOTE | 2025-09-24 12:47 | P.DS_ITS ---
Discharge Providers Date of Admission: 09/22/25 16:10 Date of Discharge: September 24, 2025 Attending Provider at Admission: Sj Pathak MD Attending Provider at Discharge: Sj Pathak MD Diagnoses at Discharge Discharge Diagnosis 1. Atrial flutter with rapid ventricular response: 2. Tachy-abner syndrome: 3. Hyperlipemia, mixed: 4. Type 2 diabetes mellitus: Reason for Visit Reason for Visit: High Heart Rate and dizzy Hospital Course Hospital Course Carlos Alberto Lares is a 85 year old male with past medical history of CVA, type 2 diabetes. He was sent to the ER from podiatry clinic due to rapid heart rate. He was found to have atrial flutter with rate in the 130's, converted to sinus rhythm with metoprolol, but became bradycardic in the upper 40's. No previous cardiac studies in our system, he denies any history of MD, previous stents. He has had high blood pressure in the past but currently normotensive and not taking any antihypertensives, also no antiarrhythmic medications. No known sleep apnea. Normal TSH. No fever or signs of infection. He denies any recent chest pain, shortness of breath. He is sometimes dizzy or lightheaded while sitting still and sometimes while standing. He could not feel when heart rate was fast. Cardiology was consulted for management of labile heart rate alternating between Aflutter with RVR and Sinus bradycardia with HR dropping to mid 30s with concerns for tachybrady syndrome. During hospitalization he was found to have elevated blood pressures for which antihypertensives were added. He underwent exercise stress test in which he was found to be chronotropic responsive. Event monitor was placed. Given the above he has been discharged in hemodynamically stable condition with event monitor in place and advised to follow-up with cardiology as an outpatient. Merits versus demerits for being on anticoagulation for stroke prevention were discussed in detail with the patient and he was agreeable and is being started on Eliquis 5 mg twice daily. Physical Exam Narrative: General: No acute distress, AO x3 HEENT: PERRLA, pupils bilaterally equal and reactive Chest: Normal vesicular breath sounds, no added sounds, equal good air entry bilaterally CVS: S1-S2 irregularly irregular, no murmurs, no tachycardia, no gallops, no rubs Abdomen: Soft, nontender, no organomegaly, bowel sounds present Neuro: No focal deficits, no facial deformity, AO x3, power 5/5 in all limbs Discharge Data Studies Completed and Pending Completed Studies During Hospitalization Category Date Time Status Cardiac Stress Test MIBI [Sestamibi Stress Test Request Exams 09/23/25 11:14 Draft ] Routine XR chest 1V portable [id number] Stat Exams 09/22/25 11:21 Completed NM beverly perf SPECT r/s* [id number] Routine Nuc Med 09/24/25 11:14 Completed CV. echo complete* [id number] Routine Ultrasound 09/22/25 16:33 Completed Pending at discharge Category Date Time Status Complete Blood Count w/Auto AM LABS Lab 09/25/25 04:00 Ordered Comprehensive Metabolic Panel AM LABS Lab 09/25/25 04:00 Ordered Magnesium AM LABS Lab 09/25/25 04:00 Ordered Phosphorus AM LABS Lab 09/25/25 04:00 Ordered Radiology Impressions Chest X-Ray 09/22/25 11:21 Impression: Atherosclerosis. Echocardiogram CONCLUSIONS Normal left ventricular size, systolic function and wall thickness, with no regional wall motion abnormalities. Left ventricular ejection fraction is estimated at 55 %. In the presence of atrial fibrillation diastolic function cannot be assessed accurately. Moderate aortic valve calcification. No aortic valve stenosis. Mild aortic valve regurgitation. Mild tricuspid valve regurgitation. There is no pericardial effusion. Right atrial pressure is around 5 mm of mercury. Monserrat Brennan MD (Electronically Signed) Final Date: 23 September 2025 19:30 S Laboratory Results WBC 4.67 10^3/uL (3.29-11.43) 09/24/25 03:45 RBC 4.13 10^6/uL (3.85-5.65) 09/24/25 03:45 Hgb 12.20 g/dL (11.27-16.99) 09/24/25 03:45 Hct 36.8 % (37-53) L 09/24/25 03:45 MCV 89.1 fl (82-101) 09/24/25 03:45 MCH 29.5 pg (27-33) 09/24/25 03:45 MCHC 33.2 g/dL (30-55) 09/24/25 03:45 RDW 13.1 % (12.1-15.1) 09/24/25 03:45 Plt Count 152 10^3/cmm (157-399) L 09/24/25 03:45 MPV 10.8 fL (7.4-10.4) H 09/24/25 03:45 Neut % (Auto) 49.3 % 09/24/25 03:45 Lymph % (Auto) 37.0 % 09/24/25 03:45 Roberts % (Auto) 8.6 % 09/24/25 03:45 Eos % (Auto) 3.4 % 09/24/25 03:45 Baso % (Auto) 1.3 % 09/24/25 03:45 Neut # (Auto) 2.30 10^3/uL (1.8-7.7) 09/24/25 03:45 Lymph # (Auto) 1.7 10^3/uL (0.8-4.8) 09/24/25 03:45 Roberts # (Auto) 0.4 10^3/uL (0.2-0.9) 09/24/25 03:45 Eos # (Auto) 0.2 10^3/uL (0.0-0.8) 09/24/25 03:45 Baso # (Auto) 0.1 10^3/uL (0.0-0.1) 09/24/25 03:45 Nucleated RBC % (auto) 0 % 09/24/25 03:45 Nucleated RBCs # 0.0 /100WBC 09/24/25 03:45 PT 13.10 SECONDS (12.1-14.9) 09/22/25 11:00 INR 0.93 (0.8-1.2) 09/22/25 11:00 APTT 31.3 SECONDS (23.9-36.7) 09/22/25 11:00 Sodium 142 mmol/L (136-145) 09/24/25 03:45 Potassium 4.6 mmol/L (3.5-5.1) 09/24/25 03:45 Chloride 107 mmol/L (98-107) 09/24/25 03:45 Carbon Dioxide 24 mmol/L (22-29) 09/24/25 03:45 Anion Gap 15.6 (5-19) 09/24/25 03:45 BUN 24 mg/dL (8-23) H 09/24/25 03:45 Creatinine 0.9 mg/dL (0.7-1.2) 09/24/25 03:45 GFR Calculation Not Reportable 09/24/25 03:45 Glucose 193 mg/dL (65-115) H 09/24/25 03:45 POC Glucose 237 mg/dL (70-110) H 09/24/25 11:14 Estimat Average Glucose 169 09/22/25 11:00 Hemoglobin A1c 7.5 % (4.0-6.0) H 09/22/25 11:00 Calculated Osmolality 303 mOsm/kg (285-295) H 09/24/25 03:45 Lactic Acid 1.6 mmol/L (0.5-2.2) 09/22/25 16:46 Calcium 8.8 mg/dL (8.5-10.5) 09/24/25 03:45 Phosphorus 3.5 mg/dL (2.5-4.5) 09/24/25 03:45 Magnesium 1.7 mg/dL (1.7-2.3) 09/24/25 03:45 Iron 163 ug/dL (59-158) H 09/22/25 11:00 TIBC 316 mcg/dl 09/22/25 11:00 % Saturation 51.5 % (20-50) H 09/22/25 11:00 Unsat Iron Binding 153 ug/dL (112-347) 09/22/25 11:00 Total Bilirubin 0.4 mg/dL (0.15-1.2) 09/24/25 03:45 AST 14 U/L (0-40) 09/24/25 03:45 ALT < 5 U/L (0-41) 09/24/25 03:45 Alkaline Phosphatase 84 U/L (40-130) 09/24/25 03:45 Troponin T Baseline 66 ng/L (0-15) H 09/22/25 11:00 Troponin T 120 Minute 58.76 ng/L (0-15) H 09/22/25 12:59 Delta Troponin T -7.24 ABS# (0-10) L 09/22/25 12:59 Troponin T Hi Sens 6Hr 58.05 ng/L (0-15) H 09/22/25 16:46 Troponin T Hi Sens 6Hr Delta -7.95 ng/L (0-12) L 09/22/25 16:46 NT-Pro-B Natriuret Pep 5107 pg/mL (0-450) H 09/22/25 11:00 Total Protein 5.5 g/dL (6.6-8.7) L 09/24/25 03:45 Albumin 3.6 g/dL (3.5-5.2) 09/24/25 03:45 Globulin 1.9 g/dL (1.3-4.6) 09/24/25 03:45 Triglycerides 80 mg/dL (0-150) 09/23/25 04:45 Cholesterol 110 mg/dL (0-200) 09/23/25 04:45 LDL Cholesterol, Calc 45 mg/dL (50-129) L 09/23/25 04:45 HDL Cholesterol 49 mg/dL (60-100) L 09/23/25 04:45 LDL/HDL Ratio 0.92 RATIO (0.00-3.22) 09/23/25 04:45 Cholesterol/HDL Ratio 2.24 mg/dL (1.0-5.00) 09/23/25 04:45 Vitamin B12 1376 pg/mL (232-1245) H 09/22/25 11:00 Folate > 20.0 ng/mL (4.5-32.2) 09/23/25 04:45 Procalcitonin 0.04 ng/mL (0-0.5) 09/23/25 04:45 TSH 3.07 uIU/mL (0.27-4.20) 09/22/25 11:00 Free T4 1.17 ng/dL (0.82-1.77) 09/22/25 11:00 Urine Color Yellow (Yellow) 09/22/25 23:37 Urine Appearance Clear (CLEAR) 09/22/25 23:37 Urine pH 5.5 (5-7) 09/22/25 23:37 Ur Specific [place] 1.019 (1.005-1.030) 09/22/25 23:37 Urine Protein Negative (Negative) 09/22/25 23: Urine Glucose (UA) 3+ (Normal) H 09/22/25 23:37 Urine Ketones Negative (Negative) 09/22/25 23:37 Urine Blood Negative (Negative) 09/22/25 23:37 Urine Nitrate Negative (Negative) 09/22/25 23: Urine Bilirubin Negative (Negative) 09/22/25 23:37 Urine Urobilinogen 1.0 mg/dL (Negative) 09/22/25 23:37 Ur Leukocyte Esterase Negative (Negative) 09/22/25 23:37 Urine RBC 0-2 /hpf (0-2) 09/22/25 23:37 Urine WBC 0-5 /hpf (0-5) 09/22/25 23:37 Ur Squamous Epith Cells 0-5 /hpf (0-5) 09/22/25 23:37 Amorphous Sediment Not Reportable 09/22/25 23:37 Urine Bacteria None seen /hpf (NONE) 09/22/25 23:37 Hyaline Casts 0-4 /lpf H 09/22/25 23:37 Vitals Last Vital Signs Temp 97.7 F 09/24/25 11:46 Pulse 55 L 09/24/25 11:46 Resp 13 09/24/25 11:46 BP 141/79 09/24/25 11:46 Pulse Ox 98 09/24/25 11:46 O2 Del Method Room Air 09/24/25 11:46 Discharge Plan Discharge Patient Disposition: Home Condition: Stable Prescriptions: New losartan 25 mg tablet 25 mg PO DAILY Qty: 30 0RF Eliquis 5 mg tablet 5 mg PO BID Qty: 60 2RF Continued finasteride 5 mg tablet 5 mg PO DAILY multivitamin [One Daily Multivitamin] Tablet 1 tab PO DAILY aspirin 81 mg tablet,delayed release (DR/EC) 81 mg PO DAILY rosuvastatin 10 mg tablet 5 mg PO DAILY sitagliptin 100 mg tablet 100 mg PO DAILY magnesium 250 mg tablet 250 mg PO DAILY mecobalamin (vitamin B12) 500 mcg tablet,chewable 500 mcg PO DAILY prevagen 1 cap PO BID insulin aspart U-100 [Novolog FlexPen U-100 Insulin] 100 unit/mL (3 mL) insulin pen 3 unit SUBCUT TID Qty: 15 0RF (DME) Dexcom G7 Sensor Device See Rx Instructions .Route Qty: 9 1RF Rx Instructions: As directed (DME) pen needle, diabetic [Comfort EZ Pen Java] 33 gauge x 5/32 needle See Rx Instructions .Route Qty: 100 6RF Rx Instructions: use for injecting insulin 4 times per day Glucerna Liquid 1 ea PO TID Discharge Order = DC NOW: Discharge Order (Routine); Ordered 09/24/25 Ordered By: Sj Pathak Referrals: Monserrat Brennan MD [Physician, Cardiology] - 6 Weeks Discharge Diet: Cardiac Patient Instructions: Amlodipine (By mouth), Apixaban (By mouth) (Eliquis), Opi oid Safety, Patient Portal & Janice Instructions Activity Restrictions/Additional Instructions: Please follow-up with the cardiology team as an outpatient. Eliquis 5 mg twice daily is the blood thinner for stroke prevention. Check your blood pressure daily at home maintain a blood pressure diary. Goal blood pressure is less than 140/90 mmHg. Losartan 25 mg daily has been added to your medication list. Discharge Attestations Time Spent in Discharge Care*: greater than 30 min Specific Discharge Activities: educating patient, educating and/or supporting family/caregiver, discussing with pcp/other providers, discussing with hospice case manager/social workers/dc planners, documenting/other paperwork and evaluating patient/reviewing data Status at Discharge: Cognitive status at discharge: cognitively intact , Behavioral status at discharge: cooperative , Functional status at discharge: independent ambulation , Quality Metrics Clinical Quality Measures [ No reported AMI, CVA or VTE this stay] Coding Level of Care Code 30120 Total time (in minutes) for Discharge: 65 Diagnoses Atrial flutter with rapid ventricular response I48.92 Tachy-abner syndrome I49.5 Hyperlipemia, mixed E78.2 Type 2 diabetes mellitus E11.9
--- NOTE | 2025-09-24 12:47 | P.PN_ITS ---
<Statement entered by Monserrat Brennan MD - 09/24/25 19:12> Patient was evaluated and cared for in conjunction with an advanced practice practitioner. I personally examined the patient and reviewed the chart and all pertinent data including imaging, telemetry, and laboratory results. I discussed the patient in detail with the advanced practice practitioner. Please see their note for complete H&P testing result and agreed upon plan of care for the patient. Subjective 2 Subjective: Exercise MIBI stress test was negative for ischemia, he did reach target heart rate. He is feeling well this morning. Noted sinus bradycardia into the 40s yesterday and overnight. Currently asymptomatic, in sinus rhythm. Vitals/I&O/Wt Last Vital Signs Temp 97.7 F 09/24/25 11:46 Pulse 55 L 09/24/25 11:46 Resp 13 09/24/25 11:46 BP 141/79 09/24/25 11:46 Pulse Ox 98 09/24/25 11:46 O2 Del Method Room Air 09/24/25 11:46 09/23/25 09/24/25 09/24/25 22:59 06:59 14:59 Intake Total 1530 / 2250 Balance 1530 / 2250 Weight last 48 hrs Weight 142 lb 13.753 oz Weight 142 lb 13.753 oz Weight 145 lb 1.027 oz Weight 146 lb 5 oz Physical Exam 2 Const: COMMON NORMALS: no acute distress and patient oriented x3 GENERAL APPEARANCE: cooperative and comfortable ORIENTATION/CONSCIOUSNESS: Yes awake, Yes oriented to person, Yes oriented to place and Yes oriented to time Chest: COMMONS NORMALS: normal inspection of the chest and normal palpation of entire chest wall CHEST: Yes Symmetrical chest wall rise Resp: COMMON NORMALS: normal respiratory effort, No retractions, No use of accessory muscles and clear to auscultation bilaterally EFFORT & INSPECTION: Yes symmetric chest movement AUSCULTATION: clear to auscultation bilaterally Cardio: COMMON NORMALS: regular rate, regular rhythm, S1 normal heart sound present, S2 normal heart sound present, No gallops present (Cardio), No clicks present (Cardio), No murmurs present (Cardio) and No rub (Cardio) RATE: r egular rate RHYTHM: regular rhythm HEART SOUNDS: S1 normal heart sound present and S2 normal heart sound present PERIPHERAL PULSES: radial pulses present Extremity: COMMON NORMALS: no pedal edema Neuro: COMMON NORMALS: patient oriented x3 and moves all extremities S ENSORIUM/ORIENTATION: Yes oriented to person, Yes oriented to place and Yes oriented to time Data 09/24/25 03:45 09/24/25 03:45 A&P Assessment and plan 1. Atrial flutter with rapid ventricular response: 2. Tachy-abner syndrome: 3. Type 2 diabetes mellitus: Plan: Will plan to discharge home today. He has had the 30-day event monitor placed this morning. Will continue to avoid all antiarrhythmic and rate limiting medications. If he has symptomatic bradycardia or tachybrady syndrome on the event monitor may require permanent pacemaker implantation. Follow-up in cardiology clinic with Dr. Brennan in 6 weeks. PDMP PDMP Reviewed: Not Reviewed Attestations 2 Medical Necessity Statement*: DC home Coding Level of Care Code Acute Code for [facility] Diagnoses Atrial flutter with rapid ventricular response I48.92 Tachy-abner syndrome I49.5 Type 2 diabetes mellitus E11.9
--- NOTE | 2025-09-24 14:22 | PC.NURSE ---
lorenza kelley provided to pt.
--- NOTE | 2025-09-24 15:00 | PC.NURSE ---
Event monitor attached to pt.
== END 2025-09-24 14:59 | disposition home or self-care (01) ==
LOC: ER 14:48 → CSU 21:44
PROVIDERS: Admitting Provider Student in an Organized Health Care Education/Training Program; Emergency Provider Student in an Organized Health Care Education/Training Program; Visit Provider Student in an Organized Health Care Education/Training Program
DX: I49.5 Sick sinus syndrome (principal); I48.92 Unspecified atrial flutter; E78.2 Mixed hyperlipidemia; E11.9 Type 2 diabetes mellitus without complications; Z79.4 Long term (current) use of insulin; Z79.82 Long term (current) use of aspirin; Z86.73 Personal history of transient ischemic attack (TIA), and cerebral infarction without residual deficits
CPT/HCPCS: 36415; 36416; 71045; 78452; 80053; 80061; 81001; 82607; 82746; 82962; 83036; 83540; 83550; 83605; 83735; 83880; 84100; 84145; 84439; 84443; 84484; 85025; 85610; 85730; 93005; 93017; 93306; 94664; 96365; 96372; 96375; 96376; 99285; A9500; G0378; J1650; J1815; J3475; J3490; J7030; J9999

== ENCOUNTER → 2025-09-30 10:19 | Outpatient (BNVA) | payer OTHER, SELFPAY | PROVIDERS: Visit Provider Podiatrist Foot & Ankle Surgery | DX: E11.42 Type 2 diabetes mellitus with diabetic polyneuropathy (principal); L60.3 Nail dystrophy; M25.371 Other instability, right ankle; M25.372 Other instability, left ankle; G62.9 Polyneuropathy, unspecified; Z79.4 Long term (current) use of insulin | CPT/HCPCS: 11721; 99204 ==

== ENCOUNTER → 2025-10-08 09:41 | Outpatient (BNVA) | payer OTHER, SELFPAY | PROVIDERS: Visit Provider Dermatology | DX: L57.8 Other skin changes due to chronic exposure to nonionizing radiation (principal); L82.1 Other seborrheic keratosis; D48.5 Neoplasm of uncertain behavior of skin; L57.0 Actinic keratosis | CPT/HCPCS: 11102; 17000; 99203 ==

== ENCOUNTER 2025-10-25 13:39 | Emergency (ER) | payer OTHER, SELFPAY ==
[2025-10-25 13:43] VITALS: BP 66/45; PULSE 158; TEMP 36.4; O2SAT 99; BMI 18.3
--- NOTE | 2025-10-25 13:58 | ECG_ITS ---
[facility]: [facility]25[facility]25 Pat Name: Carlos Alberto Lares Department: Room: Gender: Male Contact Center Director: : 1940 Requested By: Nomi Car Order Number: [id number] Amanda MD: Pako Siegel M.D. Measurements Intervals [place]cal[place] Rate: 156 P: 0 SD: 0 QRS: -20 QRSD: 106 T: 73 QT: 275 QTc: 443 Interpretive Statements SUPRAVENTRICULAR TACHYCARDIA NONSPECIFIC T-WAVE ABNORMALITY Compared to ECG 09/22/2025 18:05:15 VENTRICULAR RATE HAS INCREASED AND ATRIAL FLUTTER WAVES NO LONGER VISIBLE PVC NO LONGER PRESENT Electronically Signed On 10-27-2025 22:32:01 GEOCHEMICAL MANAGER by Pako Siegel M.D. [email or web address]
[2025-10-25 14:43] VITALS: BP 110/88; PULSE 84; RESP 21; O2SAT 100
[2025-10-25 14:48] LABS: Hematocrit 39.5 % (37-53); Hemoglobin 13.10 g/dL (11.27-16.99); Mean Corpuscular HGB Conc 33.2 g/dL (30-55); Mean Corpuscular Hemoglobin 29.9 pg (27-33); Mean Corpuscular Volume 90.2 fl (82-101); Nucleated Red Blood Cells % 0 %; Platelet Count 177 10^3/cmm (157-399); Red Blood Count 4.38 10^6/uL (3.85-5.65); White Blood Count 7.57 10^3/uL (3.29-11.43)
[2025-10-25 15:00] VITALS: BP 114/60; PULSE 84; RESP 15; O2SAT 100
[2025-10-25 15:09] LABS: Alanine Aminotransferase 9 U/L (0-41); Albumin Level 4.1 g/dL (3.5-5.2); Alkaline Phosphatase 101 U/L (40-130); Blood Urea Nitrogen 30 mg/dL (8-23); Calcium 9.7 mg/dL (8.5-10.5); Carbon Dioxide 28 mmol/L (22-29); Chloride 101 mmol/L (98-107); Globulin 1.9 g/dL (1.3-4.6); Glucose 189 mg/dL (65-115); Osmolality Calculated 295 mOsm/kg (285-295); Sodium 137 mmol/L (136-145); Total Protein 6.0 g/dL (6.6-8.7)
[2025-10-25 15:10] LABS: Troponin(5th) Baseline 32 ng/L (0-15)
[2025-10-25 15:12] LABS: Anion Gap 13.0 (5-19); Aspartate Amino Transferase 21 U/L (0-40); Potassium 5.0 mmol/L (3.5-5.1)
[2025-10-25 15:35] LABS: Respiratory Syncytial Virus Ce NEGATIVE (Negative); SARS-CoV-2 PCR NEGATIVE (Negative)
--- NOTE | 2025-10-25 15:52 | W.ED.ARRPALP ---
HPI - Arrhythmia/Palpitations General: Chief Complaint: Arrhythmia/Palpitations Stated Complaint: lightheaded, low BP, Syncope Time Seen by Provider: 10/25/25 14:22 History of Present Illness: 85-year-old male with a known history of SVT presents to the emergency room with complaints of a rapid heart rate for the last few days. Has not had any chest pain or dizziness. He has noticed his blood pressure has been low and he has felt kind of weak he has not had any associated shortness of breath. He has had A-fib in the past as well he is on Eliquis. Related Data Home Medications ?Medication ?Instructions ?Recorded ?Confirmed aspirin 81 mg tablet,delayed 81 mg PO DAILY 10/03/22 10/25/25 release finasteride 5 mg tablet 5 mg PO DAILY 10/03/22 10/25/25 multivitamin (One Daily 1 tab PO DAILY 10/03/22 10/25/25 Multivitamin tablet) magnesium 250 mg tablet 250 mg PO DAILY 03/02/25 10/25/25 mecobalamin (vitamin B12) 500 mcg 500 mcg PO DAILY 03/02/25 10/25/25 chewable tablet prevagen 1 cap PO BID 03/02/25 10/25/25 rosuvastatin 10 mg tablet 5 mg PO DAILY 03/02/25 10/25/25 sitagliptin 100 mg tablet 100 mg PO DAILY 03/02/25 10/25/25 nut.tx.gluc.intol,lac-free,soy 1 ea PO TID 09/22/25 10/25/25 (Glucerna oral liquid) Previous Rx's ?Medication ?Instructions ?Recorded blood-glucose sensor (Dexcom G7 #9 ea 08/23/25 Sensor device) insulin aspart U-100 100 unit/mL 3 unit (0.03 mL) SUBCUT TID #15 mL 08/23/25 (3 mL) subcutaneous pen (Novolog FlexPen U-100 Insulin aspart) pen needle, diabetic 33 gauge x #100 ea 09/13/25 (Comfort EZ Pen Thompson) apixaban 5 mg tablet (Eliquis) 5 mg PO BID #60 tabs 09/24/25 losartan 25 mg tablet 25 mg PO DAILY #30 tabs 09/24/25 Bilateral More Balance Brace #1 ea 09/30/25 Allergies Allergy/AdvReac Type Severity Reaction Status Date / Time No Known Allergies Allergy Verified 10/25/25 13:52 Review of Systems Const: Denies: fever(s) or chills Card: Reports: palpitations and dyspnea on exertion; Denies: chest pain, edema, swelling of feet/ankles or orthopnea Resp: Denies: dyspnea GI: Denies: abdominal pain : Denies: dysuria, urinary frequency or urinary urgency Musc: Denies: neck pain or back pain Skin/Breast: Denies: rash PFSH ED PFSH: Medical History CVA (cerebral vascular accident) Rotator cuff arthropathy of left shoulder Rupture of left proximal biceps tendon Type 2 diabetes mellitus Social History (Reviewed 10/26/25 @ 09: by Nomi Giordano DO) Smoking and tobacco/nicotine status: never used tobacco/nicotine Physical Exam Const: COMMON NORMALS: no acute distress GENERAL APPEARANCE: cooperative and comfortable ORIENTATION/CONSCIOUSNESS: Yes awake, Yes oriented to person, Yes oriented to place and Yes oriented to time HENMT: COMMON NORMALS: normocephalic, atraumatic and hearing grossly normal bilaterally HEAD & SCALP: normocephalic and atraumatic Resp: COMMON NORMALS: normal respiratory effort, No retractions, No use of accessory muscles and clear to auscultation bilaterally AUSCULTATION: clear to auscultation bilaterally Cardio: COMMON NORMALS: regular rhythm and No murmurs present (Cardio) RATE: tachycardic RHYTHM: regular rhythm GI: COMMON NORMALS: Soft to palpation and No hepatosplenomegaly present AUSCULTATION: Yes normoactive bowel sounds PALPATION: Yes Soft to palpation, No Tenderness to palpation present (GI), No Guarding due to palpation present (GI) and Yes No hepatosplenomegaly present Extremity: COMMON NORMALS: normal to inspection, capillary refill normal, no clubbing, cyanosis or edema, no calf tenderness and no pedal edema Neuro: SENSORIUM/ORIENTATION: Yes oriented to person, Yes oriented to place and Yes oriented to time Skin: COMMON NORMALS: no rashes or lesions noted GENERAL SKIN EXAM: no rashes or lesions noted Course Vital Signs: Vital signs: Vital Signs Temperature 97.5 F L 10/25/25 13:43 Pulse Rate 84 10/25/25 16:06 Respiratory Rate 15 10/25/25 15:00 Blood Pressure 124/78 10/25/25 16:06 Pulse Oximetry 95 10/25/25 16:06 Oxygen Delivery Me thod Room Air 10/25/25 14:43 MDM - Arrhythmia/Palpitations Medical Decision Making Medical decision making Social determinants: None I reviewed the patient's medical record. I reviewed the patient's current home meds. Alternate historians: None Differential diagnosis: SVT, acute coronary syndrome Lab Review: Labs reviewed including CBC which is unremarkable. CMP showed mild elevation baseline creatinine at 1.4. Otherwise no significant findings. Troponin 32. Imaging: None Assessment of risk Level of risk: Moderate Hospitalization considerations: No consideration for hospitalization at this time patient has had SVT in the past Reexamination: Spontaneously converted from SVT unremarkable no symptoms at this time. Assessment and plan: Initial troponin 32 patient wishes to go home. He has had SVT in the past he is currently on Eliquis has also had episodes of atrial fibrillation. He converted spontaneously without intervention. He was monitored for time and had no further symptoms he wishes to go home follow-up with cardiology I think is reasonable at this point they have discussed with him referral for ablation encouraged him to follow-up with cardiology they can further evaluate as appropriate. Return if he has recurrence of symptoms Lab Data 10/25/25 14:38 10/25/25 14:38 Laboratory Results WBC 7.57 10^3/uL (3.29-11.43) 10/25/25 14:38 RBC 4.38 10^6/uL (3.85-5.65) 10/25/25 14:38 Hgb 13.10 g/dL (11.27-16.99) 10/25/25 14:38 Hct 39.5 % (37-53) 10/25/25 14:38 MCV 90.2 fl (82-101) 10/25/25 14:38 MCH 29.9 pg (27-33) 10/25/25 14:38 MCHC 33.2 g/dL (30-55) 10/25/25 14:38 RDW 13.0 % (12.1-15.1) 10/25/25 14:38 Plt Count 177 10^3/cmm (157-399) 10/25/25 14:38 MPV 9.8 fL (7.4-10.4) 10/25/25 14:38 Neut % (Auto) 73.6 % 10/25/25 14:38 Lymph % (Auto) 15.1 % 10/25/25 14:38 [place] % (Auto) 9.6 % 10/25/25 14:38 Eos % (Auto) 0.8 % 10/25/25 14:38 Baso % (Auto) 0.8 % 10/25/25 14:38 Neut # (Auto) 5.57 10^3/uL (1.8-7.7) 10/25/25 14:38 Lymph # (Auto) 1.1 10^3/uL (0.8-4.8) 10/25/25 14:38 [place] # (Auto) 0.7 10^3/uL (0.2-0.9) 10/25/25 14:38 Eos # (Auto) 0.1 10^3/uL (0.0-0.8) 10/25/25 14:38 Baso # (Auto) 0.1 10^3/uL (0.0-0.1) 10/25/25 14:38 Nucleated RBC % (auto) 0 % 10/25/25 14:38 Nucleated RBCs # 0.0 /100WBC 10/25/25 14:38 Sodium 137 mmol/L (136-145) 10/25/25 14:38 Potassium 5.0 mmol/L (3.5-5.1) 10/25/25 14:38 Chloride 101 mmol/L (98-107) 10/25/25 14:38 Carbon Dioxide 28 mmol/L (22-29) 10/25/25 14:38 Anion Gap 13.0 (5-19) 10/25/25 14:38 BUN 30 mg/dL (8-23) H 10/25/25 14:38 Creatinine 1.4 mg/dL (0.7-1.2) H 10/25/25 14:38 GFR Calculation Not Reportable 10/25/25 14:38 Glucose 189 mg/dL (65-115) H 10/25/25 14:38 POC Glucose 175 mg/dL (70-110) H 10/25/25 14:36 Calculated Osmolality 295 mOsm/kg (285-295) 10/25/25 14:38 Calcium 9.7 mg/dL (8.5-10.5) 10/25/25 14:38 Total Bilirubin 0.7 mg/dL (0.15-1.2) 10/25/25 14:38 AST 21 U/L (0-40) 10/25/25 14:38 ALT 9 U/L (0-41) 10/25/25 14:38 Alkaline Phosphatase 101 U/L (40-130) 10/25/25 14:38 Creatine Kinase 51 U/L (39-308) 10/25/25 14:38 Troponin T Baseline 32 ng/L (0-15) H 10/25/25 14:38 Total Protein 6.0 g/dL (6.6-8.7) L 10/25/25 14:38 Albumin 4.1 g/dL (3.5-5.2) 10/25/25 14:38 Globulin 1.9 g/dL (1.3-4.6) 10/25/25 14:38 Influenza A (PCR) Negative (Negative) 10/25/25 14:48 Influenza Type B (PCR) Negative (Negative) 10/25/25 14:48 RSV (PCR) Negative (Negative) 10/25/25 14:48 SARS-CoV-2 (PCR) Negative (Negative) 10/25/25 14:48 No radiology studies performed this visit Discharge Plan Discharge Patient Disposition: Home Clinical Impression: SVT (supraventricular tachycardia) Condition: Stable Prescriptions: No Action (DME) Bilateral More Balance Brace See Rx Instructions .Route .MEDSUPPLY Qty: 1 0RF Rx Instructions: As directed by Shannan Wooten finasteride 5 mg tablet 5 mg PO DAILY multivitamin [One Daily Multivitamin] Tablet 1 tab PO DAILY aspirin 81 mg tablet,delayed release (DR/EC) 81 mg PO DAILY rosuvastatin 10 mg tablet 5 mg PO DAILY sitagliptin 100 mg tablet 100 mg PO DAILY magnesium 250 mg tablet 250 mg PO DAILY mecobalamin (vitamin B12) 500 mcg tablet,chewable 500 mcg PO DAILY prevagen 1 cap PO BID insulin aspart U-100 [Novolog FlexPen U-100 Insulin] 100 unit/mL (3 mL) insulin pen 3 unit SUBCUT TID Qty: 15 0RF (DME) Dexcom G7 Sensor Device See Rx Instructions .Route Qty: 9 1RF Rx Instructions: As directed (DME) pen needle, diabetic [Comfort EZ Pen Thompson] 33 gauge x 5/32 needle See Rx Instructions .Route Qty: 100 6RF Rx Instructions: use for injecting insulin 4 times per day Glucerna Liquid 1 ea PO TID Eliquis 5 mg tablet 5 mg PO BID Qty: 60 2RF losartan 25 mg tablet 25 mg PO DAILY Qty: 30 0RF Discharge Orders: Discharge ED (Routine); Ordered 10/25/25 Ordered By: Nomi Giordano Discharge Diet: Usual diet Discharge Activity: Increase activity as tolerated Patient Instructions: Opioid Safety, Pain Management, Patient Portal & Janice Instructions Activity Restrictions/Additional Instructions: Thank you for choosing [facility] for your healthcare needs today. It is very important that you follow up as instructed or that you return to the Emergency Department should you have concerns or if your condition changes or worsens in any way. Emergency department visits are focused on emergent conditions, in some cases you may require further evaluation on an outpatient basis. You are seen in the emergency room with complaints of rapid heart rate. You spontaneously converted from SVT. Continue all of your current medications recommend you follow-up with cardiology within the next week return if you have further problems. (Please note that included in your discharge packet is information concerning opioid safety and pain management. This information is given to all patients were discharged from the ER regardless of their discharge diagnosis or the medicines they usually take or are prescribed.) Print Language: Burmese Coding Level of Care Code ED Night Clerk for Jennifer Rodas
--- NOTE | 2025-10-25 15:58 | ECG_ITS ---
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 Measurements Intervals [place] Rate: 80 P: 42 CA: 168 QRS: -26 QRSD: 79 T: 54 QT: 328 QTc: 380 Interpretive Statements SINUS RHYTHM WITH MARKED SINUS ARRHYTHMIA BORDERLINE LEFT AXIS DEVIATION [QRS AXIS < -20] Compared to ECG 10/25/2025 13:47:41 Supraventricular tachycardia no longer present T-wave abnormality no longer present Electronically Signed On 10-28-2025 18:16:46 MOLDER PUNCH by Tommy Dye M.D. [email or web address]
[2025-10-25 16:06] VITALS: BP 124/78; PULSE 84; O2SAT 95
== END 2025-10-25 16:09 | disposition home or self-care (01) ==
PROVIDERS: Emergency Provider Family Medicine
DX: I47.10 Supraventricular tachycardia, unspecified (principal); Z79.82 Long term (current) use of aspirin; Z79.4 Long term (current) use of insulin; Z79.01 Long term (current) use of anticoagulants; Z11.52 Encounter for screening for COVID-19; Z86.73 Personal history of transient ischemic attack (TIA), and cerebral infarction without residual deficits; E11.9 Type 2 diabetes mellitus without complications; I48.0 Paroxysmal atrial fibrillation; I48.92 Unspecified atrial flutter; R55 Syncope and collapse; I49.5 Sick sinus syndrome
CPT/HCPCS: 36415; 36416; 80053; 82550; 82962; 84484; 85025; 87040; 87637; 93005; 99214; 99284; J7030

== ENCOUNTER 2025-11-03 15:43 | Outpatient (CLI) | payer OTHER, SELFPAY ==
[2025-11-03 16:40] LABS: Estmated Average Glucose 140; Hemoglobin A1C 6.5 % (4.0-6.0)
[2025-11-03 17:08] LABS: Alanine Aminotransferase 8 U/L (0-41); Albumin Level 4.2 g/dL (3.5-5.2); Alkaline Phosphatase 111 U/L (40-130); Anion Gap 14.6 (5-19); Aspartate Amino Transferase 19 U/L (0-40); Blood Urea Nitrogen 31 mg/dL (8-23); Calcium 9.6 mg/dL (8.5-10.5); Carbon Dioxide 28 mmol/L (22-29); Chloride 102 mmol/L (98-107); Cholesterol 132 mg/dL (0-200); Globulin 2.3 g/dL (1.3-4.6); Glucose 302 mg/dL (65-115); HDL Cholesterol 56 mg/dL (60-100); Osmolality Calculated 308 mOsm/kg (285-295); Potassium 4.6 mmol/L (3.5-5.1); Sodium 140 mmol/L (136-145); Total Protein 6.5 g/dL (6.6-8.7); Triglycerides 117 mg/dL (0-150)
[2025-11-03 17:49] LABS: Creatinine Urine, Random 142 mg/dL (39-259); Microalbum Creatinine Ratio Ur 7 mg/dL (0-20)
== END 2025-11-03 15:44 | disposition home or self-care (01) ==
PROVIDERS: Visit Provider Internal Medicine
DX: E11.9 Type 2 diabetes mellitus without complications (principal)
CPT/HCPCS: 36415; 80053; 80061; 82044; 83036

== ENCOUNTER → 2025-11-04 08:07 | Outpatient (BNVA) | payer OTHER, SELFPAY | PROVIDERS: Visit Provider Internal Medicine Endocrinology, Diabetes & Metabolism | DX: E11.9 Type 2 diabetes mellitus without complications (principal); E78.2 Mixed hyperlipidemia | CPT/HCPCS: 99214 ==

== ENCOUNTER 2025-11-09 22:21 | Emergency (ER) | payer OTHER, SELFPAY ==
--- OUTSIDE RECORDS SUMMARY | 2024-05-10 03:00 | XMS_ITS ---
Author Organization [facility] Address [address] [place] [address] Care Team Providers Care Sleeve Machine Tender Name Role Phone [facility] Primary Care Provider Ilda Cody Newell Unavailable [phone] Migration, Provider Unavailable Unavailable Allergies Allergen (clinical [...] Propionate 0.0005 MG/MG Topical Ointment *Reorder from [facility] for eRx and Interaction Alerts* 05/09/2021 06/08/2021 Active Rosuvastatin Calcium 10 MG Oral Tablet *Reorder from [facility] for eRx and Interaction Alerts* 05/09/2021 08/07/2021 Active 3 ML liraglutide 6 MG/ML Pen Injector [Victoza] *Reorder from [facility] for eRx and Interaction Alerts* 05/09/2021 08/07/2021 Active empagliflozin 25 MG Oral Tablet [Jardiance] *Reorder from [facility] for eRx and Interaction Alerts* 05/09/2021 05/19/2021 Active Social History Social History Additional Details Category Social Info Options Details Migrated Social History Migrated Social History History of tobacco use : , Smoking Status : Never used tobacco Encounters Encounter Location Date Provider Diagnosis Migrated_Facility 0 0 05/10/2024 Provider Migration Plan Of Treatment Next Appt Details Provider Name:Cody Lo, 06/02/2026 08:00:00 AM, [address] [facility] [place] [place], [address], Progress Notes * Carlos Alberto ALCALA GDOB:1940 (85 yo M)Acc No.[id number]:05/10/2024 Patient: Carlos Alberto COLE :1940 A ge:83 Y S ex:Male Address:[address] [place] [address] Subjective: * Chief Complaints: * E MR-Luis [...] date 06/08/2021, Notes to Pharmacist: *Reorder from [facility] for eRx and Interaction Alerts*Rosuvastatin Calcium 10 MG Oral Tablet , stop date 08/07/2021, Notes to Pharmacist: *[facility]*3 ML liraglutide 6 MG/ML Pen Injector [Victoza] , stop date 08/07/2021, Notes to Pharmacist: *[facility]*empagliflozin 25 MG Oral Tablet [Jardiance] , stop date 05/19/2021, Notes to Pharmacist: *[facility] for [facility] and Interaction Alerts*Taking Finasteride 5 MG Tablet Oral , stop date 08/07/2021Taking Clobetasol Propionate 0.0005 MG/MG Topical Ointment , stop date 06/08/2021, Notes to Pharmacist: *[facility] and Interaction Alert[facility]*Taking Rosuvastatin Calcium 10 MG Oral Tablet , stop date 08/07/2021, Notes to Pharmacist: *[facility] for [facility] and Interaction Alerts*Taking 3 ML liraglutide 6 MG/ML Pen Injector [Victoza] , stop date 08/07/2021, Notes to Pharmacist: *Reorder from [facility] for eRx and Interaction Alerts*Taking empagliflozin 25 MG Oral Tablet [Jardiance] , stop date 05/19/2021, Notes to Pharmacist: *Reorder from [facility] for eRx and Interaction Alerts* * Allergies: N KDA : NO KNOWN DRUG ALLERGIES: Allergy * * Date:
--- OUTSIDE RECORDS SUMMARY | 2024-09-12 03:00 | XMS_ITS ---
Author Organization [facility] Address [address] [place] [address] Care Team Providers Care Switchgear Repairer Name Role Phone [facility] Primary Care Provider Ilda vailable Cody Lo Unavailable [phone] Migration, Provider Unavailable Unavailable REASON FOR VISIT EMR-Luis Carols Encounters Encounter Location Date Provider Diagnosis Migrated_Facility 0 0 09/12/2024 Provider Migration Plan Of Treatment Next Appt Details Provider Name:Cody Lo, 06/02/2026 08:00:00 AM, [address] [place], [address], Progress Notes * Carlos Alberto ALCALA GDOB:1940 (85 yo M)Acc No.[id number]:09/12/2024 Patient: Abbie HOWELLCarlos Alberto Leila :1940 A ge:84 Y S ex:Male Address:[facility] [address], [place] [address] Subjective: * Chief Complaints: * E MR-Luis Carlos * * Date:
--- OUTSIDE RECORDS SUMMARY | 2024-09-13 03:00 | XMS_ITS ---
Author Organization [facility] Address [address] [place] [address] Care Team Providers Care Squad Leader Name Role Phone [facility] Primary Care Provider Ilda Cody Newell Unavailable [phone] Migration, Provider Unavailable Unavailable Allergies Allergen (clinical drug ingredient) Drug/Non Drug Allergy documented on EMR Reaction Allergy Type Onset Date Status NKDA : NO KNOWN DRUG ALLERGIES Unknown Drug Allergy Active REASON FOR VISIT EMR-Luis Carlos Medications Medication SIG (Take, Route, Frequency, Duration) Notes Start Date End Date Status Aspirin *[facility]* Active Vitamin B-12 *[facility]* Active Finasteride *[facility]* Active Rosuvastatin *[facility]* Active Metformin *[facility] for [facility] and Interaction Alerts* Active Multivitamin *[facility] for [facility]* Active glipiZIDE *[facility]-f [facility] from [facility] for [facility]* Active Victoza 2-Galindo *[facility] for [facility] and Interaction Alerts* Active Social [...] Name:Cody Lo, 06/02/2026 08:00:00 AM, [address] [place], [address], Progress Notes * Carlos Alberto ALCALA GDOB:1940 (85 yo M)Acc No.[id number]:09/13/2024 Patient: Carlos Alberto COLE :1940 A ge:84 Y S ex:Male Address:[address] [address] Subjective: * Chief Complaints: * E MR-Luis [...]
--- OUTSIDE RECORDS SUMMARY | 2025-05-24 02:20 | XMS_ITS ---
Author Organization [facility] Address [address] [place] [address] Care Team Providers Care Oil And Gas Exploration Technician Name Role Phone [facility] Primary Care Provider Ilda vailaCody Croft Unavailable [phone] REASON FOR VISIT LEFT REVERSE TOTAL SHOULDER ARTHROPLASTY Encounters Encounter Location Date Provider Diagnosis [facility] [address] [address] 05/24/2025 Cody Lo Plan Of Treatment Next Appt Details Provider Name:Cody Lo, 06/02/2026 08:00:00 AM, [address] [place], [address], Progress Notes * Carlos Alberto ALCALA GDOB:1940 (85 yo M)Acc No.[id number]:05/24/2025 Patient: Carlos Alberto Ortiz Provider: Juan Carlos Lo M.D. :1940 A ge:84 Y S ex:Male Date:05/24/2025 Address:[facility] [address] [id number] Pcp:[facility] * Electronic signature of Mitch Lo MD on 11/09/2025 at 10:25 PM BEAD CUTTER Sign off status: Pending * Provider: Juan Carlos Lo M.D. Date: 0 05/24/2025 Generated for Printi ng/Faxing/eTransmitting on: 1 01/10/2025 10:25 PM BEAD CUTTER
--- OUTSIDE RECORDS SUMMARY | 2025-11-03 11:30 | XMS_ITS | Encounter Summary ---
Author Organization [facility] Address [address] [place] [address] Care Team Providers Care Professor Of Business Name Role Phone Unavailable Primary Care Provider Unavailabl e Reason for Visit * Eval and Treat (Routine) - Authorized Specialty Diagnoses / Procedures Referred By Frank weber Referred To Contact Occupational Therapy / Multi Specialty Diagnoses Dupuytren's contracture of left hand Richie García MD [address] [place] [address] Phone: tel: fax: [facility] Therapy [facility] [address] [place] [address] Phone: tel: fax: Referral ID Status Reason Start Date Expiration Date Visits Requested Visits Authorized [id number] Authorized Performing Department to Schedule 01/14/2026 15 15 Encounter Details Date Type Department Care Team (Late st Contact Info) Description 11/03/2025 11:30 AM LEAD RADIATION THERAPIST - 11/03/2025 11:59 PM [facility] Hospital Encounter [facility] OP Therapy [facility] [address] [place] [address] Richie García MD [address] [place] [address] Karyn Ross, Occupational Therapist Discharge Disposition: Home or Self Care Social History Tobacco Use Types Packs/Day Years Used Date Smoking Tobacco: Never Smokeless Tobacco: Never Alcohol Use Standard Drinks/Week Comments No 0 (1 standard drink = 0.6 oz pur e alcohol) Sex and Gender Information Value Date Recorded Sex Assigned at Not on file Legal Sex Male 6:44 AM LEAD RADIATION THERAPIST Gender Identity Not on file Sexual Orientation Not on file documented as of this encounter Functional Status * Adult Acuity Scoring Question Answer Date of Assessment Author Readmission Risk Score 0 11/04/2025 12:26 A M LEAD RADIATION THERAPIST Batch User, [facility] Admit Sewage Reticulation Drafting Officer [id number] Score (Used for patients with atrial fibrillation) 3 11/04/2025 12:26 AM LEAD RADIATION THERAPIST Batch User, [facility] Admit Sewage Reticulation Drafting Officer HAS-BLED Score (Used for patients with atrial fibrillation) 1 11/04/2025 12:26 AM LEAD RADIATION THERAPIST Batch User, [facility] Admit Sewage Reticulation Drafting Officer documented as of this encounter Medications at Time of Discharge apixaban (ELIQUIS) 5 mg tablet Take 5 mg by mouth. 09/30/2025 insulin glargine (LANTUS) 100 unit/mL pen syringe Inject by subcutaneous injection. 05/19/2025 rosuvastatin (CRESTOR) 10 mg tablet Take 5 mg by mouth. 06/25/2025 SITagliptin (ZITUVIO) Take 100 mg by mouth. 06/25/2025 multivitamin (DAILY-JEFFERY) tablet finasteride (PROSCAR) 5 mg tablet Take 5 mg by mouth daily. vit B complex no.12/niacin,B3, (VITAMIN B COMPLEX NO.12-NIACIN ORAL) Take by mouth. 02/18/2017 documented as of this encounter Miscellaneous Notes * Therapy Evaluation - Karyn Ross, Occupational Therapist - 11/03/2025 11:[address] [facility] Initial Evaluation/ Plan of Care/Treatment Patient was identified by name and date of . Patient: Carlos Alberto Lares Date of : 1940 Visits 1 of 4 (15 authorized) Plan of Care Certification ending: February 01, 2026 Attendance in Therapy: Non-applicable due to 1X/limited visit plan of care Co Signature Requested as evidence of POC certification Date: 11/03/2025 Referring MD Orders: Nighttime extension splint Referring Physician: Richie García MD Medical Diagnosis: M72.0 (ICD-10-CM) - 728.6 (ICD-9-CM) - Dupuytren's contracture of left hand Insurance: Payor: [employer] / Plan: [facility] / Product Type: [place] / Precautions/ Contraindications: Xiaflex MEDICAL HISTORY Carlos Alberto has a past medical history of Diabetes, DM eyes, and Essential hypertension. He has no past medical history of Amblyopia, Cancer ([facility]), Cataract, COPD (chronic obstructive pulmonary disease) ([facility]), Headache(784.0), Migraine with aura, without mention of intractable migraine without mention of status migrainosus, Multiple sclerosis, Senile macular degeneration, Thyroid disease, or Uveitis. Past Surgical History: Procedure Laterality Date HX CATARACT REMOVAL HX KNEE REPLACEMENT Right Patient Active Problem List Diagnosis Code DM (diabetes mellitus), type 2 E11.9 No Known Allergies Prior Hospitalization: none Fall Risk: ?? negative Nutritional Screen/Eating Difficulty: ?? negative Abuse Screen: ?? negative Suicide Screen: ?? negative Communication Needs:no Occupational Therapy Evaluation [id number] Low Complexity SUBJECTIVE Medication Changes No Medical Dx changes No Allergic drug response No Significant operation and or procedure No Date of Onset: Xiaflex manipulation Pain Rating: Patient rates their current pain at a 0/10 and worst at a 0/10 Patient states that he has been pain free. Current Level of Function: Occupational Performance Areas Affected: Activities of Daily Living: Bathing/showering Dressing Grooming Oral hygiene Sleep Toilet hygiene Work & Productive Activities: Cleaning (household) Clothing care Dishwashing & rinsing; load/un-load acid conditioner Play/Leisure/Hobby Activities: Driving Hand Dominance: Carlos Alberto is LEFT-handed. The involved UE is: the LEFT Prior Level of Function: Over all prior to injury patient was able to perform the above mentioned activities without pain and or modification. OBJECTIVE A-ROM: left composite fist & digit extension WFL with minimal edema & bruising noted. TREATMENT Therapeutic Exercise (Clinic Exercise & HEP): 5 minutes Instructed in written home program with returned demonstration: A-ROM finger Hook fist, straight fist, composite fist A-ROM Blocked PIP Flexion P-ROM PIP extension Self Care: - Orthotic Management &Training Initial : 20 Description: Custom left volar hand based Index-small finger full IP Extension immobilization orthosis Other orthotic details: Thumb not included Application & removal instructions completed: YES Wearing schedule instructions provided: YES, nighttime wear only Cleaning & care instructions provided: YES Additional time & training was needed (see below): yes teach patient how to perform ADL/work tasks in the orthosis Activities or exercises that need to be done in the orthosis: None Soft Good(s) Provided: - NONE Manual Therapy: - Neuromuscular Reeducation: - NONE Therapeutic Activity: - Modalities - NONE TOTAL TIME 35 minutes ASSESSMENT Orthosis fit appears to be good. Patient is independent with orthotic wear & precautions-NO FURTHER VISITS NEEDED unless wearing issues occur Goals Goal Date Established Date Met Demo independence with orthosis donning/doffing, care, purpose, precautions, schedule. 11/03/25 11/03/25 Demo active composite left fist WFL 11/03/25 11/03/25 Patient goal for OT: prevent loss of digit extension PLAN Patient will return up to 4 visits within the next 90 days for orthotic adjustments & HEP updates as needed. If patient does not return, this note will serve as a DISCHARGE SUMMARY Frequency/Duration: up to 1 visits by 4 Thank you for this referral and the opportunity to participate in this patients care. KARYN ROSS, Occupational Therapist Cosigned by Richie García MD at 11/04/2025 7:39 AM LEAD RADIATION THERAPIST RADIATION THERAPIST RADIATION THERAPIST documented in this encounter Plan of Treatment Upcoming Encounters Date Type Department Care Team (Late st Contact Info) Description 11/29/2025 2:30 PM LEAD RADIATION THERAPIST Office Visit [facility] [address] [place] [phone] Mariam Mccarty MD [address] [place] [phone] 12/01/2025 11:15 AM LEAD RADIATION THERAPIST Office Visit [facility] [address] [facility] [phone] Richie aGrcía MD [address] [address] Scheduled Referrals Name Type Priority Associated Diagnoses Orde r Schedule AMB REFERRAL TO OCCUPATIONAL THERAPY Outpatient Referral Routine Dupuytren's contracture of left hand Ordered: 11/03/2025 documented as of this encounter Visit Diagnoses Not on filedocumented in this encounter
--- OUTSIDE RECORDS SUMMARY | 2025-11-03 11:45 | XMS_ITS | Encounter Summary ---
Author Organization [facility] Address [address] [place] [address] Care Team Providers Care Food Service Lead Name Role Phone Unavailable Primary Care Provider Unavailabl e Reason for Referral * Eval and Treat (Routine) - Authorized Specialty Diagnoses / Procedures Referred By Contac t Referred To Contact Occupational Therapy / Multi Specialty Diagnoses Dupuytren's contracture of left hand Richie García MD [address] [place] [address] Phone: tel: fax: [facility] Therapy [facility] [address] [place] [address] Phone: tel: fax: Referral ID Status Reason Start Date Expiration Date Visits Requested Visits Authorized [id number] Authorized Performing Department to Schedule 01/14/2026 15 15 L MANAGEMENT ASSOCIATE Reason for Visit * Reason Comments Follow Up LEFT HAND * Eval and Treat (Routine) - Authorized Specialty Diagnoses / Procedures Referred By Contac t Referred To Contact Orthopedic Surgery Diagnoses Contracture, left hand Linda Fischer MD [address] [place] [address] Phone: tel: fax: Richie García MD [address] [place] [address] Phone: tel: fax: Referral ID Status Reason Start Date Expiration Date V isits Requested Visits Authorized [id number] Authorized 04/07/2025 06/11/2026 999 [id number] Encounter Details Date Type Department Care Team (Late st Contact Info) Description 11/03/2025 11:45 AM TRIAL MANAGEMENT ASSOCIATE Office Visit [facility] Orthopedics - Orthopedic [place] [address] [place] [phone] Richie García MD [address] [place] [phone] Dupuytren's contracture of left hand (Primary Dx) Social History Tobacco Use Types Packs/Day Years Used Date Smoking Tobacco: Never Smokeless Tobacco: Never Alcohol Use Standard Drinks/Week Comments No 0 (1 standard drink = 0.6 oz pur e alcohol) Sex and Gender Information Value Date Recorded Sex Assigned at Not on file Legal Sex Male 6:44 AM TRIAL MANAGEMENT ASSOCIATE Gender Identity Not on file Sexual Orientation Not on file documented as of this encounter Last Filed Vital Signs Vital Sign Reading Time Taken Comments Blood Pressure 112/62 11/03/2025 11:33 AM TRIAL MANAGEMENT ASSOCIATE Pulse - - Temperature - - Respiratory Rate - - Oxygen Saturation - - Inhaled Oxygen Concentration - - Weight 64.4 kg (142 lb) 11/03/2025 11:33 AM TRIAL MANAGEMENT ASSOCIATE Height 182.9 cm (6') 11/03/2025 11:33 AM TRIAL MANAGEMENT ASSOCIATE Body Mass Index 19.26 11/03/2025 11:33 AM TRIAL MANAGEMENT ASSOCIATE documented in this encounter Progress Notes * Richie García MD - 11/03/2025 11:42 AM CST [place] OFFICE NOTE PATIENT NAME: Carlos Alberto Lares :1940 [facility]: [id number] DATE OF SERVICE: 11/03/2025 I have reviewed in detail the patient's electronic medical record this date including past medical history, present medications, allergies, past surgical history, family history, social history, and review of systems. Please refer to the Orthopedic History form completed by the patient which I havereviewed in detail this date. CHIEF COMPLAINT: Chief Complaint Patient presents with Follow Up LEFT HAND SUBJECTIVE: Carlos Alberto Lares is a 85 y.o. year old left hand dominant male presents for follow-up of left index and middle finger Dupuytren's contractures at the PIP joints. Patient is status post Xiaflex injection into the index and long fingers. Patient is left-handed and has been using his left hand since the injections. He notes that his fingers are straighter and he is able to place his hands flat on the tabletop. Overall he is very happy with the results of the injection. Previous HPI: History of left index finger and middle finger finger Dupuytren's contracture. Patient reports minimal functional deficits including, but not limited to, difficulty getting hand into pockets and gloves. Patient reports the contracture worsening over time. Patient reports he is unable to put his hand flat on the table. Patient has noted that the contracture since several years. PAST MEDICAL HISTORY: Past Medical History: Diagnosis Date Diabetes DM eyes Essential hypertension PAST SURGICAL HISTORY: Past Surgical History: Procedure Laterality Date HX CATARACT REMOVAL HX KNEE REPLACEMENT Right FAMILY HISTORY: Family History Problem Relation Name Age of Onset Arthritis-rheumatoid Mother SOCIAL HISTORY: Social History Tobacco Use Smoking status: Never Smokeless tobacco: Never Substance Use Topics Alcohol use: No Drug use: No MEDICATIONS: Current Outpatient Medications: apixaban (ELIQUIS) 5 mg tablet, Take 5 mg by mouth., Disp: , Rfl: insulin glargine (LANTUS) 100 unit/mL pen syringe, Inject by subcutaneous injection., Disp: , Rfl: rosuvastatin (CRESTOR) 10 mg tablet, Take 5 mg by mouth., Disp: , Rfl: SITagliptin (ZITUVIO), Take 100 mg by mouth., Disp: , Rfl: multivitamin (DAILY-JEFFERY) tablet, , Disp: , Rfl: finasteride (PROSCAR) 5 mg tablet, Take 5 mg by mouth daily., Disp: , Rfl: vit B complex no.12/niacin,B3, (VITAMIN B COMPLEX NO.12-NIACIN ORAL), Take by mouth., Disp: , Rfl: ALLERGIES: No Known Allergies REVIEW OF SYSTEMS: Review of Systems VITALS: Vitals: 11/03/25 1133 BP: 112/62 LABS: HgA1c: No results found for: HGBA1C BMP: Lab Results Component Value Date/Time GLUCOSE 238 (H) 10/25/2019 04:40 PM NA 140 10/25/2019 04:40 PM K 5.3 (H) 10/25/2019 04:40 PM CO2 28 10/25/2019 04:40 PM CL 98 10/25/2019 04:40 PM BUN 18 10/25/2019 04:40 PM EXAMINATION: HEENT: Normocephalic, atraumatic. Mucosal membranes are pink and moist. Sclera are clear, nares arepatent without discharge. HEART: Regular rate LUNGS: Chest symmetrical CONSTITUTIONAL: This is a pleasant patient in no acute distress. NEUROLOGICAL: Grossly normal. SKIN: Normal color, turgor, and texture, without redness, warmth, or erythema. PSYCH: The patient is oriented to person, place and time, and answers questions appropriately. Extremities: Left Long and index fingers: No PIP joint contractures noted at the index and long fingers Minimal ecchymoses noted over the volar aspect of the digits Patient has full extension of the digits along with hyperextension of the MP joints with no flexioncontracture noted No palpable cord is present Negative table top test as patient is able to place his hand flat on the table ASSESSMENT: Left Long and index finger Dupuytren's contractures status post Xiaflex injections with full improvement in contractures PLAN: I discussed with the patient today that there is no need for any further treatment other than wearing a splint at night over the next 4 weeks to help maintain extension of the digits. I will see the patient back in 4 weeks for repeat follow-up. Patient made use the hands normally during the day butuse the splint at night. All questions were addressed. Richie García MD Portions of this document were created through the use of [employer] software. Effort has been made to ensure accuracy of the admissions coordinator. Any obvious errors or omissions should be clarified with the author of the document L MANAGEMENT ASSOCIATE documented in this encounter Plan of Treatment Upcoming Encounters Date Type Department Care Team (Late st Contact Info) Description 11/29/2025 2:30 PM TRIAL MANAGEMENT ASSOCIATE Office Visit [facility] [address] [facility] [address] [place] [phone] Mariam Mccarty MD [address] [place] [phone] 12/01/2025 11:15 AM TRIAL MANAGEMENT ASSOCIATE Office Visit [facility] Orthopedics - Orthopedic [facility] [address] [place] [address] Richie García MD [address] [place] [address] Scheduled Referrals Name Type Priority Associated Diagnoses Orde r Schedule AMB REFERRAL TO OCCUPATIONAL THERAPY Outpatient Referral Routine Dupuytren's contracture of left hand Ordered: 11/03/2025 documented as of this encounter Visit Diagnoses Diagnosis Dupuytren's contracture of left hand- Primary Contracture of palmar fascia documented in this encounter
[2025-11-09 22:22] VITALS: BP 97/63; PULSE 88; RESP 16; TEMP 36.3; O2SAT 95; BMI 18.6
--- OUTSIDE RECORDS SUMMARY | 2025-11-09 22:25 | XMS_ITS | Clinical Summary ---
Author Organization [facility] Address [address] [place]: Epic Prelude ADT [place] [address] Care Team Providers Care Spa Concierge Name Role Phone Unavailable Primary Care Provider Unavailabl e Allergies No known active allergies Medications vit B complex no.12/niacin,B 3, (VITAMIN B COMPLEX NO.12-NIACIN ORAL) Take by mouth. 02/19/20 17 Active apixaban (ELIQUIS) 5 mg tablet Take 5 mg by mouth. 09/30/20 25 Active insulin glargine (LANTUS) 100 unit/mL pen syringe Inject by subcutaneous injection. 05/19/20 25 Active rosuvastatin (CRESTOR) 10 mg tablet Take 5 mg by mouth. 06/25/20 25 Active SITagliptin (ZITUVIO) Take 100 mg by mouth. 06/25/20 25 Active multivitamin (DAILY-JEFFERY) tablet Active finasteride (PROSCAR) 5 mg tablet Take 5 mg by mouth daily. Active aspirin (BRY) 325 mg tablet Take 325 mg by mouth daily. 02/19/20 17 025 Discontinu ed(Alterna te therapy prescribed ) Hospital, Clinic, or Other Facility Administered Medication Ordered Dose Route Frequency Start Date End Date Status collagenase clostridium histolyticum (XIAFLEX) injection 0.58 mgIndications:Dup uytren's contracture of left hand 0.58 mg See Instruct ONE TIME ONLY 5 10/27/20 25 Discontinued collagenase clostridium histolyticum (XIAFLEX) injection 0.6 mgIndications:Dup uytren's contracture of left hand 0.6 mg See Instruct ONE TIME ONLY 5 10/27/20 25 Ended collagenase clostridium histolyticum (XIAFLEX) injection 0.6 mgIndications:Dup uytren's contracture of left hand 0.6 mg See Instruct ONE TIME ONLY 10/27/20 Ended Active Problems Problem Noted Date Diagnosed Date DM (diabetes mellitus), type 2 02/18/2017 Encounters Date Type Department Care Team Description 11/04/2025 Telephone [place] [address] [place] [phone] Richie García MD patient question 11/03/2025 11:45 AM LABORATORY TECHNOLOGY TEACHER Office Visit [place] [address] [place] [phone] Richie García MD Dupuytren's contracture of left hand (Primary Dx) 11/03/2025 11:30 AM LABORATORY TECHNOLOGY TEACHER - 11/03/2025 11:59 PM LABORATORY TECHNOLOGY TEACHER Hospital Encounter [facility] OP Therapy [facility] Orthopedic [place] [address] [place] [address] Richie García MD Thomas, Erin M, Occupational Therapist Discharge Disposition: Home or Self Care 10/27/2025 11:30 AM LABORATORY TECHNOLOGY TEACHER Office Visit [place] [address] [place] [address] Richie García MD Dupuytren's contracture of left hand (Primary Dx) 10/26/2025 External Device Data STL ABSTRACTION Provider, Abstract 10/26/2025 External Device Data ST[facility] ABSTRACTION Provider, Abstract 10/26/2025 External Device Data ST[facility] ABSTRACTION Provider, Abstract 10/26/2025 Abstract [facility] [address] [place] [phone] Maris Sal, OSVALDO 10/22/2025 Telephone [place] [address] [place] [address] Richie García MD General 10/21/2025 Orders Only [place] [address] [place] [phone] Richie García MD Contracture of palmar fascia (Primary Dx) 10/20/2025 8:15 AM LABORATORY TECHNOLOGY TEACHER Office Visit [facility] Orthopedic [place] [address] [place] [phone] Richie García MD Dupuytren's contracture of left hand (Primary Dx) from Last 3 Months Immunizations Immunization Administration Dates Next Due Influenza [...] on file Legal Sex Male 6:44 AM LABORATORY TECHNOLOGY TEACHER Gender Identity Not on file Sexual Orientation Not on file Last Filed Vital Signs Vital Sign Reading Time Taken Comments Blood Pressure 112/62 11/03/2025 11:33 AM LABORATORY TECHNOLOGY TEACHER Pulse 75 10/25/2019 4:45 PM LABORATORY TECHNOLOGY TEACHER Temperature 36.5 C (97.7 F) 10/25/2019 4:16 PM LABORATORY TECHNOLOGY TEACHER Respiratory Rate 16 10/25/2019 7:08 PM LABORATORY TECHNOLOGY TEACHER Oxygen Saturation - - Inhaled Oxygen Concentration - - Weight 64.4 kg (142 lb) 11/03/2025 11:33 AM LABORATORY TECHNOLOGY TEACHER Height 182.9 cm (6') 11/03/2025 11:33 AM LABORATORY TECHNOLOGY TEACHER Body Mass Index 19.26 11/03/2025 11:33 AM LABORATORY TECHNOLOGY TEACHER Plan of Treatment Upcoming Encounters Date Type Department Care Team (Late st Contact Info) Description 11/29/2025 2:30 PM LABORATORY TECHNOLOGY TEACHER Office Visit [facility] [address] [place] [address] Mariam Mccarty MD [address] [place] [address] 12/01/2025 11:15 AM LABORATORY TECHNOLOGY TEACHER Office Visit [facility] Orthopedics - Orthopedic [facility] [address] [phone] Richie García MD [address] [phone] Health Maintenance Due Date Last Done Comments DIABETES ANNUAL FOOT EXAM 1959 DIABETES MICROALBUMIN ANNUAL SCREEN 1959 LDL CHOLESTEROL ANNUAL 1959 RSV VACCINE (60+ or ) (1 - 1-dose 75+ series) 2016 DIABETES HBA1C Q 6 MONTHS 03/01/20262024, 04/27/2019, 12/29/2018, Additional history exists DIABETES ANNUAL RETINAL EXAM 07/05/2026, 11/24/2024, 12/11/2016, Additional history exists DTAP/TDAP/TD VACCINES (4 - T d or Tdap) 09/07/2035 09/07/2025, 12/27/2015, 04/11/2006 PNEUMOCOCCAL VACCINE 50+ YEARS Completed 0 04/18/2023, 09/30/2022, 06/26/2016, Additional history exists ZOSTER VACCINE Completed 07/26/2023, 11/2022, 06/24/2018, Additional history exists INFLUENZA VACCINE Completed 07/20/2025, , 12/27/2016, Additional history exists Insurance [facility] [place] [place] [address] OPTUM
--- OUTSIDE RECORDS SUMMARY | 2025-11-09 22:25 | XMS_ITS | Encounter Summary ---
Author Organization [facility] Address [address] [place] [address] Care Team Providers Care Catering Service Manager Name Role Phone Jeanie Goff MD Primary Care Provider [phone] Encounter Details Date Type Department Care Team (Latest Contact Info) Description 09/22/2001 Outpatient Historical [facility] Jarred Mendoza MD [address] [place] [address] DIABETES UNCOMPL ADULT-TYPE II (CMS/HCC) (Primary Dx); HYPERTENSION NOS; VACCINE FOR INFLUENZA Social History Tobacco Use Types Packs/Day Years Used Date Smoking Tobacco: Never Assessed Sex and Gender Information Value Date Recorded Sex Assigned at Not on file Legal Sex Male 4:34 AM DIRECTOR CORPORATE SALES Gender Identity Not on file Sexual Orientation [...] diseases documented in this encounter Care Teams Catering Service Manager Relationship Specialty Start Date End Date Jeanie Goff MD [address] [place] [address] PCP - General Internal Medicine 01/28/17 documented as of this encounter
--- OUTSIDE RECORDS SUMMARY | 2025-11-09 22:25 | XMS_ITS | Encounter Summary ---
Author Organization [facility] Address [address] [place] [address] Care Team Providers Care Vessel Slagman Name Role Phone Unavailable Primary Care Provider Unavailabl e Reason for Visit * Reason Onset Date Comments patient question 11/04/2025 Encounter Details Date Type Department Care Team (Late st Contact Info) Description 11/04/2025 Telephone [facility] Orthopedics Orthopedic [facility] [address] [place] [phone] Richie García MD [address] [place] [phone] patient question Social History Tobacco Use Types Packs/Day Years Used Date Smoking Tobacco: Never Smokeless Tobacco: Never Alcohol Use Standard Drinks/Week Comments No 0 (1 standard drink = 0.6 oz pur e alcohol) Sex and Gender Information Value Date Recorded Sex Assigned at Not on file Legal Sex Male 6:44 AM CHIEF ACCOUNTANT Gender Identity Not on file Sexual Orientation Not on file documented as of this encounter Miscellaneous Notes * Telephone Encounter - Rhonda Knutson - 11/04/2025 11:48 AM CST NOTE WAS MADE AND EMAILED TO PT F ACCOUNTANT * Telephone Encounter - Nenita Rebeca Cheryl - 11/04/2025 11:42 AM CST Patient called stating he had forgotten to get a note that he had been to his appointment yesterday. He would like it emailed to [email or web address] ACCOUNTANT documented in this encounter Plan of Treatment Upcoming Encounters Date Type Department Care Team (Late st Contact Info) Description 11/29/2025 2:30 PM CHIEF ACCOUNTANT Office Visit [facility] [address] [facility] [address] [place] [address] Mariam Mccarty MD [address] [facility] [address] [place] [address] 12/01/2025 11:15 AM CHIEF ACCOUNTANT Office Visit [facility]3] Orthopedics - Orthopedic [place] [phone] [place] [address] Richie García MD [address] [place] [address] documented as of this encounter Visit Diagnoses Not on filedocumented in this encounter
--- OUTSIDE RECORDS SUMMARY | 2025-11-09 22:25 | XMS_ITS | Patient Health Record ---
Author Organization [facility] Address [address] [place] [address] Care Team Providers Care Foam Rubber Molder Name Role Phone [facility] Primary Care Provider Ilda Cody Newell Unavailable [phone] Allergies No Known Allergies Results Component Value Reference Range Flag Notes Chest PA/Lat-42301 Reviewed date:04/21/2025 10:08:51 AM Interpretation: Performing Lab: Notes/Report: [id number] MRSA Screen PCR--59956 Reviewed date:05/10/2025 04:43:28 PM Interpretation: Performing Lab: Notes/Report: Diagnosis Description: Unspecified rotator cuff tear or rupture of left shoulder, not specified as traumatic Diagnosis Description: Essential (primary) hypertension Diagnosis Description: Encounter for other preprocedural examination MRSA Screen NOT DETECTED NA Shoulder Min 1V Left Reviewed date:05/27/2025 12:26:17 PM Interpretation: Performing Lab: Notes/Report: [id number]&[email or web address] Glucometer WBG--98836 Reviewed date:06/02/2025 03:19:36 PM Interpretation: Performing Lab: Notes/Report: Glucometer WBG 170 65-110 MG/DL [facility] atic~Meter: [id number]~Zyglo Technician: [id number] CECI MCDANIEL Glucometer WBG--53523 Reviewed date:06/02/2025 03:19:36 PM Interpretation: Performing Lab: Notes/Report: Glucometer WBG 79 65-110 MG/DL Meter: [id number]~Zyglo Technician: [id number] MIKE PATTERSON Glucometer WBG--25484 Reviewed date:06/02/2025 03:19:36 PM Interpretation: Performing Lab: Notes/Report: Glucometer WBG 136 65-110 MG/DL HI Asymptom atic~Meter: [id number]~Zyglo Technician: [id number] CECI MCDANIEL Shoulder Min 1V Left Reviewed date:07/07/2025 03:21:46 PM Interpretation: Performing Lab: Notes/Report: [id number] Glucometer WBG--59408 Reviewed date:06/02/2025 03:19:36 PM Interpretation: Performing Lab: Notes/Report: Glucometer WBG 133 65-110 MG/DL HI Asymptom atic~Meter: [id number]~Zyglo Technician: [id number] CECI MCDANIEL Glucometer WBG--16617 Reviewed date:06/02/2025 03:21:36 PM Interpretation: Performing Lab: Notes/Report: Glucometer WBG 356 65-110 MG/DL HI Sliding Scale Given~Meter: [id number]~Zyglo Technician: [id number] JEANNETTE INGRAM Glucometer WBG--67453 Reviewed date:06/02/2025 03:20:20 PM Interpretation: Performing Lab: Notes/Report: Glucometer WBG 217 65-110 MG/DL HI Sliding Scale Given~Meter: [id number]~Zyglo Technician: [id number] ROLO RIOSAH WBC Auto Diff--41524 Reviewed date:06/02/2025 03:20:20 PM Interpretation: Performing Lab: Notes/Report: Added by Discern Rules Neutro Auto% 81.1 40.0-70.0 % HI Lymph Auto% 10.2 22.0-44.0 % LOW [place] Auto% 7.6 3.0-7.0 % HI Eos Auto% .2 2.0-4.0 % LOW Baso Auto% 0.6 0.0-1.0 % NRBC% .00 .00-.20 /100 intact WBC's Neutro Abs 5.26 .80-7.70 Absolute Neutrophil Count 5260 NA Lymph Abs .66 .10-4.10 [place] Abs .49 .20-1.00 Eos Abs .01 .00-.40 Baso Abs .04 .00-.20 NRBC# .00 .00-.20 Imm Gran Abs .02 .00-.10 Imm Gran% .3 .0-.4 % CBC Reflex Man Diff 62886, 8 5007 Reviewed date:06/02/2025 03:20:20 PM Interpretation: Performing Lab: Notes/Report: WBC 6.5 4.5-11.0 X10'3 RBC 3.57 4.50-5.90 X10'6 LOW Hgb 11.0 13.5-17.5 G/DL LOW Hct 32.5 41.0-53.0 % LOW MCV 91.0 80.0-100.0 FL MCH 30.8 27.0-31.0 PG MCHC 33.8 31.0-37.0 G/DL Platelet 141 150-400 X10'3 LOW RDW-SD 44.0 35.0-49.0 FL RDW-CV 13.1 12.2-15.6 % MPV 10.3 9.2-12.0 FL Review Auto Diff Conf Basic Metabolic Panel (BMP) 50418 Reviewed date:06/02/2025 03:20:20 PM Interpretation: Performing Lab: Notes/Report: Sodium 139 136-145 MMOL/L Potassium 4.2 3.5-5.1 MMOL/L Chloride 103 98-107 MMOL/L CO2 26.6 20.0-31.0 MMOL/L Glucose Serum 253 71-110 MG/DL HI Testing p erformed at [facility], [address] [place] [address] [place] [address]. CLIA ID#: [id number] BUN 22 7-21 MG/DL HI Creat .99 .57-1.17 MG/DL W-vlqvee-i-benzoquino ne imine (NAPQI) is a metabolite of [...] MG/DL LOW Osmo Serum,Calculated 300 280-300 MOSM/KG Chest PA/Lat-73182 Reviewed date:04/21/2025 10:07:59 AM Interpretation: Performing Lab: Notes/Report: See Below For Report Chest PA/Lat Diagnosis Description: Unspecified rotator cuff tear or rupture of left shoulder, not specified as traumatic Read See Below For Report US Surgery Unlisted Reviewed date:05/27/2025 12:26:37 PM Interpretation: Performing Lab: Notes/Report: This procedure was dictated and transcribed outside of the [employer] system. The results may be found in the patient's physical chart. FINAL REPORT Read This procedure was dictated and transcribed outside of the [employer] system. The results may be found in the patient's physical chart. Shoulder Min 1V Left Reviewed date:05/27/2025 12:25:58 PM Interpretation: Performing Lab: Notes/Report: See Below For Report Shoulder 1V Left Read See Below For Report Shoulder Min 1V Left Reviewed date:07/07/2025 03:19:36 PM Interpretation: Performing Lab: Notes/Report: The report for this exam was dictated at [facility] . FINAL REPORT Read The report for this exam was dictated at [facility] . Glucometer WBG--30811 Reviewed date:06/02/2025 03:21:36 PM Interpretation: Performing Lab: Notes/Report: Glucometer WBG 189 65-110 MG/DL HI Asymptom atic~Meter: [id number]~Zyglo Technician: [id number] ISIDRO WALLACE UE w/o contrast left Torn ier Protocol-32641 Reviewed date:04/21/2025 10:09:01 AM Interpretation: Performing Lab: Notes/Report: [id number]=iSite Glucometer WBG--32469 Reviewed date:06/02/2025 03:21:36 PM Interpretation: Performing Lab: Notes/Report: Glucometer WBG 172 65-110 MG/DL HI Notify D r~Meter: [id number]~Zyglo Technician: [id number] RHONA ORTEZ XR Outside CD Reviewed date:04/21/2025 10:14:16 AM Interpretation: Performing Lab: Notes/Report: [id number]&org=iSimariya Glucometer WBG--54122 Reviewed date:06/02/2025 03:20:20 PM Interpretation: Performing Lab: Notes/Report: Glucometer WBG 221 65-110 MG/DL HI Asymptom atic~Meter: [id number]~Zyglo Technician: [id number] MARLENE MANZO Glucometer WBG--53161 Reviewed date:06/02/2025 03:19:36 PM Interpretation: Performing Lab: Notes/Report: Glucometer WBG 237 65-110 MG/DL HI Asymptom atic~Meter: [id number]~Zyglo Technician: [id number] ORNELAS VIOLETA UA Reflex Micro, Reflex Cult 30611, 01591, 78956 Reviewed date:05/10/2025 04:43:28 PM Interpretation: Performing Lab: [...] Urine Culture No CBC w\ Manual Diff 83264, 85 027 Reviewed date:05/10/2025 04:43:28 PM Interpretation: [...] Count 3960 NA Vitamin D Total (B) 47637 Reviewed date:05/10/2025 04:43:28 PM Interpretation: Performing Lab: Notes/Report: Diagnosis Description: Unspecified rotator cuff tear or rupture of left shoulder, not specified as traumatic Diagnosis Description: Essential (primary) hypertension Diagnosis Description: Encounter for other preprocedural examination Vitamin D Total 71.8 30.0-100.0 ng/mL Deficiency: < 20 ng/mL Insufficiency: 20??? < 30 ng/mL Sufficiency: 30???100 ng/mL Performed on the [employer]mart IM Analyzer Comprehensive Metabolic Pane l (CMP) 25466 Reviewed date:05/10/2025 04:43:28 PM Interpretation: Performing Lab: Notes/Report: Diagnosis Description: Unspecified rotator cuff tear or rupture of left shoulder, not specified as traumatic Diagnosis Description: Essential (primary) hypertension Diagnosis Description: Encounter for other preprocedural examination Glucose Serum 227 71-110 MG/DL HI Testing p erformed at [facility] Isabella [place], [place] [address]. CLIA ID#: [id number] BUN 21 7-21 MG/DL Creat .95 .57-1.17 MG/DL I-bkrxfd-f-benzoquino ne imine (NAPQI) is a metabolite of [...] UNIT/L LOW Osmo Serum,Calculated 294 280-300 MOSM/KG Schedule Confirmation Reviewed date:04/21/2025 10:08:19 AM Interpretation: Performing Lab: Notes/Report: CT UE w/o contrast left Tornier Protocol CT UE w/o contrast left Torn ier Protocol-91794 Reviewed date:04/22/2025 09:13:43 AM Interpretation: Performing Lab: Notes/Report: See Below For Report CT UE w/o contrast left Tornier Protocol Diagnosis Description: Unspecified rotator cuff tear or rupture of left shoulder, not specified as traumatic Read See Below For Report Schedule Confirmation Reviewed date:04/21/2025 10:08:24 AM Interpretation: Performing Lab: Notes/Report: CT UE w/o contrast left Tornier Protocol Reason For Referral Reason Status post reverse left total shoulder arthroplasty rehabilitation at [place], [place] clinic: Twice a week, 8 to 10 weeks Diagnosis 1 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) Referral Organization [facility] Referring Provider First Name Cody Referring Provider Last Name Lo Referring Provider Speciality Orthopedic Surgery Referred Provider [facility] Referred Provider Specialty Physical The rapist Clinical Notes Winter Mcadams 025 11:41:10 AM CDT > scheduled to start pt 07/21 Referral Priority Routine Medications Medication SIG (Take, Route, Frequency, Duration) Notes Start Date End Date Status Rosuvastatin Calcium 10 MG Tablet 1 tablet Orally Once a day Active Victoza 2-Galindo [facility]* Not-Taking Pioglitazone HCl 45 MG Tablet 1 tablet Orally Once a day Active Rosuvastatin *[facility] for [facility] and Interaction Alerts* Not-Taking Multivitamin *Pick strength-f orm from [facility] for eRX* Active Metformin hydrochloride 1000 MG Oral Tablet Metformin hydrochloride 1000 MG Oral Tablet 10/01/2013 Not-Taking Magnesium 250 MG Tablet 1 tablet with a meal Orally Once a day Active Metformin *[facility] for [facility] and Interaction Alerts* Not-Taking Aspirin *Pick strength-f orm from [facility] for [facility]* Not-Taking Tamsulosin HCl 0.4 MG Capsule 1 capsule Orally Once a day Active Vitamin B-12 *Pick strength-f orm from [facility] for [facility]* Not-Taking SITagliptin 100 MG Tablet [...] 10/01/2013 Not-Taking glipiZIDE *Pick strength-f orm from [facility] for [facility]* Not-Taking Finasteride *Pick strength-f orm from [facility] for [facility]* Not-Taking Immunizations Vaccine Route Administration Date Status Comme nts Influenza (whole), CPT 18554 Inactive Unknown 10/18/2016 Administered Social History Tobacco [...] W/U Status Risk Notes Problem Essential hypertension (24314255) Essential (primary) hypertension (I10) Active confirmed Problem Rotator cuff arthropathy of left shoulder (disorder) (0853981261330905 0) Other specific arthropathies, not elsewhere classified, left shoulder (M12.812) Active confirmed Problem Nontraumatic rupture of muscle or tendon structure of rotator cuff of left shoulder (disorder) (0623817900048239 ) Unspecified rotator cuff tear or rupture of left shoulder, not specified as traumatic (M75.102) Active confirmed Problem 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 Problem 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) (6057439582132647 2) 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 Problem 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) (125794644) 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) Active confirmed Problem Nontraumatic rotator cuff tear, left (M75.102) Active confirmed Problem History of cerebrovascular accident without residual deficits (700699393) Personal history of transient ischemic attack (TIA), and cerebral infarction without residual deficits (Z86.73) Active confirmed [id number] med Description:H/O : TIA Problem Type II diabetes mellitus without complication (591977308) Type 2 diabetes mellitus without complications (E11.9) Active confirmed [id number] med Description:Typ e 2 diabetes mellitus Problem Mixed hyperlipidemia (353936771) Mixed hyperlipidemia (E78.2) Active confirmed [id number] med Description:Mix ed hyperlipidemia Problem Essential hypertension (01801073) Essential primary hypertension (I10) Active confirmed [id number] med Description:Ess ential hypertension Vital Signs Heart Rate 72 /min 09/02/2025 Blood pressure diastolic 54 mm Hg 09/02/2025 Oximetry 97 % 09/02/2025 Height-cm 182.88 cm 09/02/2025 Weight-kg 64.3 kg 09/02/2025 Height 72.00 in 09/02/2025 Blood pressure systolic 102 mm Hg 09/02/2025 Weight 141.76 lbs 09/02/2025 BMI 19.22 kg/m2 09/02/2025 Encounters Encounter Location Date Provider Diagnosis [facility] [address] [place] [address] 04/20/2025 Cody Lo Unspecified rotator cuff tear or rupture of left shoulder, not specified as traumatic M75.102 ; Other specific arthropathies, not elsewhere classified, left shoulder M12.812 ; Essential (primary) hypertension I10 and Encounter for preoperative examination for general surgical procedure Z01.818 [facility] [address] [place] [address] 09/02/2025 Cody Lo Status post reverse total arthroplasty of left shoulder Z96.612 [facility] [address] [place] [address] 05/31/2025 Cody Lo Encounter for postoperative wound check Z48.89 [facility] [address] [place] [address] 07/06/2025 Cody Lo Status post reverse total replacement of left shoulder Z96.612 [facility] [address] [place] [address] 05/24/2025 Cody Lo [facility] [address] [place] [address] 06/21/2025 Cody Lo [facility] [address] [place] [address], [place] [address] 08/18/2025 Cody Lo Assessments Encounter Date Diagnosis (ICD Code) Assessment Notes Treatment Notes Treatment Clinical Notes Section Notes 05/31/2025 Encounter for postoperative wound check (ICD-10 - Z48.89) 07/06/2025 Status post reverse total replacement of left shoulder (ICD-10 - Z96.612) This individual is doing extremely well. He has very little if any postoperative pain. I am going to go ahead and start his physical therapy program through [facility] at their [place], [place] clinic. Will recheck in 2 months. [...] up to 1 year from surgery. 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 This man also is a diabetic. However he has received clearance from his physicians at the [facility] for orthopedic care on his left shoulder. Specifically, for surgical intervention with the left shoulder. Risk of the surgery are exacerbated with this individual because of his history of diabetes. I told him as much. Other risk such as nerve injury bleeding are discussed and accepted as well. Proposed procedure: Left reverse total shoulder arthroplasty. CT scan for planning will be done. 04/20/2025 Essential (primary) hypertension (ICD-10 - I10) [...] Order Date Shoulder 2V 07/06/2025 MRSA Screen PCR--57918 04/20/2025 Comprehensive Metabolic Panel (CMP) 8005 3 04/20/2025 Vitamin D Total (B) 93563 04/20/2025 CBC w\ Manual Diff 64185, 00433 04/20/20 25 UA Reflex Micro, Reflex Cult 87101, 8101 5, 51708 04/20/2025 Electrocardiogram 12 Lead Tracing (EKG)- 35610 04/20/2025 Next Appt Details Provider Name:Cody Lo, 06/02/2026 08:00:00 AM, [address] [facility], [place], [address], Insurance Providers Payer Name Payer Address Payer Phone Subscriber Number Group Number Insured Name Patient Relationship to Insured Coverage Start Date Coverage End Date [employer] [address] [place] [phone] [id number] Carlos Alberto Lares Self - patient is the insured Medical (General) History Medical History History ICD Code Arthritis, measles Diabetes, chicken pox High blood pressure, diabetes History of measles, mumps, or rubella, Stroke, Surgical History Surgery Date(Month/Year) left shoulder surgery Knee replacement surgery
--- OUTSIDE RECORDS SUMMARY | 2025-11-09 22:25 | XMS_ITS | Encounter Summary ---
Author Organization [facility] Address [address] [place] [address] Care Team Providers Care Personal Banker Name Role Phone Jeanie Goff MD Primary Care Provider [phone] Encounter Details Date Type Department Care Team (Late st Contact Info) Description 04/08/2003 Outpatient Historical [facility] Imaging Services [id number] 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
--- OUTSIDE RECORDS SUMMARY | 2025-11-09 22:25 | XMS_ITS | Clinical Summary ---
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 Gender Identity Not on file Sexual Orientation Not on file Last Filed Vital Signs Vital Sign Reading Time Taken Comments Blood Pressure 158/88 10/25/2019 7:08 PM DOCUMENT REVIEW SPECIALIST Pulse 75 10/25/2019 4:45 PM DOCUMENT REVIEW SPECIALIST Temperature 36.5 C (97.7 F) 10/25/2019 4:16 PM DOCUMENT REVIEW SPECIALIST Respiratory Rate 16 10/25/2019 7:08 PM DOCUMENT REVIEW SPECIALIST Oxygen Saturation 98% 10/25/2019 7:08 PM DOCUMENT REVIEW SPECIALIST Inhaled Oxygen Concentration - - Weight 63.5 kg (140 lb) 10/25/2019 4:16 PM DOCUMENT REVIEW SPECIALIST Height 180.3 cm (5' 11 ) 10/25/2019 4:16 PM DOCUMENT REVIEW SPECIALIST Body Mass Index 19.53 10/25/2019 4:16 PM DOCUMENT REVIEW SPECIALIST Plan of Treatment Health Maintenance Due Date [...] 09/22/2001 Insurance MEDICARE PART A AND B [place] [employer] Care Teams Produce Laborer Relationship Specialty Start Date End Date Jeanie Goff MD [address] [place] [address] PCP - General Internal Medicine 01/28/17
--- OUTSIDE RECORDS SUMMARY | 2025-11-09 22:25 | XMS_ITS | Encounter Summary ---
Author Organization [facility] Address [address] [place] [address] Care Team Providers Care Potato Sorter Name Role Phone Jeanie Goff MD Primary Care Provider [phone] Encounter Details Date Type Department Care Team (Latest Contact Info) Description 04/08/2003 Outpatient Historical [facility] Cardiovascular Services [address] [phone] Adelfo Peace MD [address] [address] [place] [address] CHEST PAIN NOS (Primary Dx) Social History Tobacco Use Types Packs/Day Years Used Date Smoking Tobacco: Never Assessed Sex and Gender Information Value Date Recorded Sex Assigned at Not on file 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
[2025-11-09 22:49] VITALS: BP 122/56; PULSE 80; RESP 18; O2SAT 94
[2025-11-09 23:25] LABS: Hematocrit 40.7 % (37-53); Hemoglobin 13.80 g/dL (11.27-16.99); Mean Corpuscular HGB Conc 33.9 g/dL (30-55); Mean Corpuscular Hemoglobin 30.4 pg (27-33); Mean Corpuscular Volume 89.6 fl (82-101); Nucleated Red Blood Cells % 0 %; Platelet Count 202 10^3/cmm (157-399); Red Blood Count 4.54 10^6/uL (3.85-5.65); White Blood Count 7.19 10^3/uL (3.29-11.43)
--- NOTE | 2025-11-09 23:25 | W.ED.RECABL ---
HPI - Recheck/Abnormal Lab/Rx General: Chief Complaint: Recheck/Abnormal Lab/Rx Stated Complaint: Low BP Time Seen by Provider: 11/09/25 22:46 History of Present Illness: Patient is an 85-year-old male who presents to the emergency department with concerns of hypotension. He reports recent blood pressure readings of 90/47 and 91/45, which are significantly lower than his baseline. The patient states he was contacted yesterday to come in for evaluation but declined at that time. Tonight, he experienced an episode of dizziness which prompted him to check his blood pressure. Upon seeing the low readings, he decided to seek medical attention. He denies any recent changes in medication regimen, denies taking extra doses of his antihypertensive medication, and denies any volume-depleting symptoms such as vomiting or diarrhea. He also denies fever or generally feeling unwell except for the dizziness episode tonight. Related Data Home Medications ?Medication ?Instructions ?Recorded ?Confirmed aspirin 81 mg tablet,delayed 81 mg PO DAILY 10/03/22 11/04/25 release finasteride 5 mg tablet 5 mg PO DAILY 10/03/22 11/04/25 multivitamin (One Daily 1 tab PO DAILY 10/03/22 11/04/25 Multivitamin tablet) magnesium 250 mg tablet 250 mg PO DAILY 03/02/25 11/04/25 mecobalamin (vitamin B12) 500 mcg 500 mcg PO DAILY 03/02/25 11/04/25 chewable tablet prevagen 1 cap PO BID 03/02/25 11/04/25 rosuvastatin 10 mg tablet 5 mg PO DAILY 03/02/25 11/04/25 sitagliptin 100 mg tablet 100 mg PO DAILY 03/02/25 11/04/25 nut.tx.gluc.intol,lac-free,soy 1 ea PO TID 09/22/25 11/04/25 (Glucerna oral liquid) Previous Rx's ?Medication ?Instructions ?Recorded blood-glucose sensor (Dexcom G7 #9 ea 08/23/25 Sensor device) pen needle, diabetic 33 gauge x #100 ea 09/13/25 (Comfort EZ Pen [place]) apixaban 5 mg tablet (Eliquis) 5 mg PO BID #60 tabs 09/24/25 losartan 25 mg tablet 25 mg PO DAILY #30 tabs 09/24/25 Bilateral More Balance Brace #1 ea 09/30/25 repaglinide 0.5 mg tablet 0.5 mg PO TID #90 tabs 11/04/25 Allergies Allergy/AdvReac Type Severity Reaction Status Date / Time No Known Allergies Allergy Verified 10/25/25 13:52 PFS ED PFSH: Medical History CVA (cerebral vascular accident) Rotator cuff arthropathy of left shoulder Rupture of left proximal biceps tendon Type 2 diabetes mellitus Social History Smoking and tobacco/nicotine status: never used tobacco/nicotine Physical Exam Const: COMMON NORMALS: no acute distress GENERAL APPEARANCE: cooperative; not ill appearing and not frail appearing HENMT: COMMON NORMALS: normocephalic, atraumatic and Normal external nose present HEAD & SCALP: normocephalic and atraumatic FACE & SINUS: normal facial exam and face symmetric NOSE: Normal external nose present Eye: COMMON NORMALS: Equal, round and reactive pupils present and EOMs intact bilaterally PUPIL: Yes Equal, round and reactive pupils present Neck/C-Spine: GENERAL: Yes trachea midline Chest: CHEST: Yes Symmetrical chest wall rise Resp: COMMON NORMALS: normal respiratory effort, No retractions, No use of accessory muscles and clear to auscultation bilaterally AUSCULTATION: clear to auscultation bilaterally Cardio: COMMON NORMALS: regular rate and regular rhythm RATE: regular rate RHYTHM: regular rhythm GI: COMMON NORMALS: Normal to inspection, nondistended, normoactive bowel sounds present Extremity: COMMON NORMALS: no pedal edema Neuro: PRABHA COMA SCALE: document GCS findings Prabha coma scale eye opening: Spontaneous Prabha coma scale verbal response: Orientated [place] coma scale motor response: [place]bey commands Prabha coma scale total score: 15 SENSORY EXAM: Yes extremities (intact) Psych: COMMON NORMALS: speech normal SPEECH: Yes normal speech Skin: COMMON NORMALS: no rashes or lesions noted GENERAL SKIN EXAM: no rashes or lesions noted Course Vital Signs: Vital signs: Vital Signs Temperature 97.4 F L 11/09/25 22:22 Pulse Rate 74 11/10/25 02:03 Respiratory Rate 16 11/10/25 02:00 Blood Pressure 134/78 11/10/25 02:03 Pulse Oximetry 98 11/10/25 02:03 Oxygen Delivery Me thod Room Air 11/10/25 00:02 MDM - Recheck/Abnormal Lab/Rx Medical Decision Making Patient initially with a mildly soft blood pressure 97/63. Heart rates were in the 80s. When getting up to urinate however, he began to get significantly tachycardic. He had converted from sinus rhythm to atrial fibs/flutter with a rate in the 140s. He was given a dose of 10 mg diltiazem, along with 1.25 of digoxin. Heart rate returned to normal. With average heart rates in the 70s and 80s. He was given 2 L total of fluid, with normalization of blood pressure. CBC was normal. Initially, creatinine is elevated at 1.5 with BUN of 40 and potassium of 5.2. This was before 2 L bolus. Chest x-ray is negative. Other laboratory is not remarkable. His troponin did not change at 1 hour. Urinalysis is negative. He will hold his losartan for the next 24 to 48 hours and continue to check his blood pressure. If his blood pressure comes back to above normal, he will restart the losartan. He will monitor his heart rate as well. He is set up for a pacemaker consult on 28 November. I will ask case management to call and see if he can get in sooner. Currently he is stable for discharge. He will return for any worsening symptoms. Lab Data 11/09/25 22:45 11/09/25 22:45 Radiology Impressions Chest X-Ray 11/09/25 23:58 IMPRESSION: No focal consolidation, pleural effusion, or pneumothorax. Laboratory Results WBC 7.19 10^3/uL (3.29-11.43) 11/09/25 22:45 RBC 4.54 10^6/uL (3.85-5.65) 11/09/25 22:45 Hgb 13.80 g/dL (11.27-16.99) 11/09/25 22:45 Hct 40.7 % (37-53) 11/09/25 22:45 MCV 89.6 fl (82-101) 11/09/25 22:45 MCH 30.4 pg (27-33) 11/09/25 22:45 MCHC 33.9 g/dL (30-55) 11/09/25 22:45 RDW 12.8 % (12.1-15.1) 11/09/25 22:45 Plt Count 202 10^3/cmm (157-399) 11/09/25 22:45 MPV 10.4 fL (7.4-10.4) 11/09/25 22:45 Neut % (Auto) 74.4 % 11/09/25 22:45 Lymph % (Auto) 16.1 % 11/09/25 22:45 Jackson % (Auto) 7.4 % 11/09/25 22:45 Eos % (Auto) 0.8 % 11/09/25 22:45 Baso % (Auto) 0.7 % 11/09/25 22:45 Neut # (Auto) 5.35 10^3/uL (1.8-7.7) 11/09/25 22:45 Lymph # (Auto) 1.2 10^3/uL (0.8-4.8) 11/09/25 22:45 Jackson # (Auto) 0.5 10^3/uL (0.2-0.9) 11/09/25 22:45 Eos # (Auto) 0.1 10^3/uL (0.0-0.8) 11/09/25 22:45 Baso # (Auto) 0.1 10^3/uL (0.0-0.1) 11/09/25 22:45 Nucleated RBC % (auto) 0 % 11/09/25 22:45 Nucleated RBCs # 0.0 /100WBC 11/09/25 22:45 Sodium 139 mmol/L (136-145) 11/09/25 22:45 Potassium 5.2 mmol/L (3.5-5.1) H 11/09/25 22:45 Chloride 102 mmol/L (98-107) 11/09/25 22:45 Carbon Dioxide 27 mmol/L (22-29) 11/09/25 22:45 Anion Gap 15.2 (5-19) 11/09/25 22:45 BUN 40 mg/dL (8-23) H 11/09/25 22:45 Creatinine 1.5 mg/dL (0.7-1.2) H 11/09/25 22:45 GFR Calculation Not Reportable 11/09/25 22:45 Glucose 260 mg/dL (65-115) H 11/09/25 22:45 Calculated Osmolality 307 mOsm/kg (285-295) H 11/09/25 22:45 Lactic Acid 2.1 mmol/L (0.5-2.2) 11/09/25 22:45 Lactic Acid (Sepsis) 1.0 mmol/L (0.5-2.2) 11/10/25 01:27 Calcium 9.7 mg/dL (8.5-10.5) 11/09/25 22:45 Magnesium 1.9 mg/dL (1.7-2.3) 11/09/25 22:45 Total Bilirubin 0.7 mg/dL (0.15-1.2) 11/09/25 22:45 AST 18 U/L (0-40) 11/09/25 22:45 ALT 8 U/L (0-41) 11/09/25 22:45 Alkaline Phosphatase 104 U/L (40-130) 11/09/25 22:45 Troponin T Baseline 62 ng/L (0-15) H 11/10/25 00:20 Troponin T 60 Minute 61.58 ng/L (0-15) H 11/10/25 01:27 Delta Troponin T -0.42 ABS# (0-10) L 11/10/25 01:27 Total Protein 5.8 g/dL (6.6-8.7) L 11/09/25 22:45 Albumin 4.1 g/dL (3.5-5.2) 11/09/25 22:45 Globulin 1.7 g/dL (1.3-4.6) 11/09/25 22:45 Urine Color Dark yellow (Yellow) A 11/09/25 23:37 Urine Appearance Clear (CLEAR) 11/09/25 23:37 Urine pH 5.0 (5-7) 11/09/25 23:37 Ur Specific [employer] 1.021 (1.005-1.030) 11/09/25 23:37 Urine Protein Negative (Negative) 11/09/25 23:37 Urine Glucose (UA) Negative (Normal) 11/09/25 23:37 Urine Ketones Trace (Negative) 11/09/25 23:37 Urine Blood Negative (Negative) 11/09/25 23:37 Urine Nitrate Negative (Negative) 11/09/25 23:37 Urine Bilirubin Negative (Negative) 11/09/25 23:37 Urine Urobilinogen 1.0 mg/dL (Negative) 11/09/25 23:37 Ur Leukocyte Esterase Negative (Negative) 11/09/25 23:37 Urine RBC 0-2 /hpf (0-2) 11/09/25 23:37 Urine WBC 0-5 /hpf (0-5) 11/09/25 23:37 Ur Squamous Epith Cells 0-5 /hpf (0-5) 11/09/25 23:37 Amorphous Sediment Not Reportable 11/09/25 23:37 Urine Bacteria None seen /hpf (NONE) 11/09/25 23:37 Hyaline Casts 6.17 /lpf 11/09/25 23:37 All radiology interpretation(s) finalized by discharge EKG Data EKG 1: Interpretation: EKG time 2230 read 4 reveals sinus rhythm with frequent premature supraventricular contractions. Left axis deviation. QTc is 356. Other intervals are normal. No ST wave changes. Rate is 85. Discharge Plan Discharge Patient Disposition: Home Clinical Impression: Acute hypotension, Atrial flutter with rapid ventricular response, Tachy-abner syndrome Condition: Stable Prescriptions: No Action (DME) Bilateral More Balance Brace See Rx Instructions .Route .MEDSUPPLY Qty: 1 0RF Rx Instructions: As directed by Shanann Wooten finasteride 5 mg tablet 5 mg PO DAILY multivitamin [One Daily Multivitamin] Tablet 1 tab PO DAILY aspirin 81 mg tablet,delayed release (DR/EC) 81 mg PO DAILY repaglinide 0.5 mg tablet 0.5 mg PO TID Qty: 90 3RF Rx Instructions: administer within 30 minutes of a meal or snack rosuvastatin 10 mg tablet 5 mg PO DAILY sitagliptin 100 mg tablet 100 mg PO DAILY magnesium 250 mg tablet 250 mg PO DAILY mecobalamin (vitamin B12) 500 mcg tablet,chewable 500 mcg PO DAILY prevagen 1 cap PO BID (DME) Dexcom G7 Sensor Device See Rx Instructions .Route Qty: 9 1RF Rx Instructions: As directed (DME) pen needle, diabetic [Comfort EZ Pen [place]] 33 gauge x 5/32 needle See Rx Instructions .Route Qty: 100 6RF Rx Instructions: use for injecting insulin 4 times per day Glucerna Liquid 1 ea PO TID Eliquis 5 mg tablet 5 mg PO BID Qty: 60 2RF losartan 25 mg tablet 25 mg PO DAILY Qty: 30 0RF Discharge Orders: Discharge ED (Routine); Ordered 11/10/25 Ordered By: Mitch Herrera Patient Instructions: A-fib (Atrial Fibrillation) (ED), Dehydration (ED), Hypotension (ED), Opioid Safety, Pain Management, Patient Portal & Janice Instructions Activity Restrictions/Additional Instructions: Stay hydrated. Stop your blood pressure medication for the next 24 to 48 hours and continue to monitor your blood pressure. If blood pressure comes up over 130 systolic (the top number) you may resume your blood pressure medication. Return for any problems Print Language: Micronesian Coding Level of Care Code ED Insulation Worker Apprentice for Jennifer Rodas
[2025-11-09 23:41] VITALS: BP 93/68; PULSE 144; RESP 18; O2SAT 99
[2025-11-09 23:44] LABS: Alanine Aminotransferase 8 U/L (0-41); Albumin Level 4.1 g/dL (3.5-5.2); Alkaline Phosphatase 104 U/L (40-130); Anion Gap 15.2 (5-19); Aspartate Amino Transferase 18 U/L (0-40); Blood Urea Nitrogen 40 mg/dL (8-23); Calcium 9.7 mg/dL (8.5-10.5); Carbon Dioxide 27 mmol/L (22-29); Chloride 102 mmol/L (98-107); Globulin 1.7 g/dL (1.3-4.6); Glucose 260 mg/dL (65-115); Magnesium 1.9 mg/dL (1.7-2.3); Osmolality Calculated 307 mOsm/kg (285-295); Potassium 5.2 mmol/L (3.5-5.1); Sodium 139 mmol/L (136-145); Total Protein 5.8 g/dL (6.6-8.7)
[2025-11-09 23:45] LABS: Lactic Sepsis W/Reflex 2.1 mmol/L (0.5-2.2)
[2025-11-09] MEDS: dilTIAZem 5 mg/mL SDV 5 mL 10 MG IVP (23:47)
[2025-11-09] MEDS: digoxin 250 mcg/ml INJ 2 mL 125 MCG IVP (23:47)
--- NOTE | 2025-11-09 23:58 | XRR_ITS ---
PROCEDURE INFORMATION: Exam: XR Chest Exam date and time: 11/10/2025 12:08 AM Age: 85 years old Clinical indication: Other: Hypotension, tachycardia; Additional info: Tachycardia, hypotension TECHNIQUE: Imaging protocol: Radiologic exam of the chest. Views: 1 view. COMPARISON: CR XR chest 1V portable [id number] 09/22/2025 11:23 AM FINDINGS: Lungs: Unremarkable. No consolidation. Pleural spaces: No focal consolidation, pleural effusion, or pneumothorax. Heart/Mediastinum: Unremarkable. No cardiomegaly. Bones/joints: Left shoulder reverse arthroplasty. XR/XR chest 1V portable [id number] IMPRESSION: No focal consolidation, pleural effusion, or pneumothorax.
--- NOTE | 2025-11-09 23:59 | ECG_ITS ---
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1940 Requested By: Mitch Ochoa Order Number: [id number] Amanda MD: KURT BEAR Measurements Intervals [place] Rate: 90 P: 254 [place]: 146 QRS: -24 QRSD: 84 T: 62 QT: 344 QTc: 421 Interpretive Statements ATRIAL FLUTTER, BORDERLINE LEFT AXIS DEVIATION [QRS AXIS < -20] ABNORMAL RHYTHM ECG Compared to ECG 10/25/2025 14:35:59 Ectopic atrial rhythm now present Sinus rhythm no longer present Sinus arrhythmia no longer present Electronically Signed On 11-10-2025 20:17:04 WIRE WEAVER by KURT BERA [email or web address] [id number]
[2025-11-10 00:02] VITALS: BP 108/58; PULSE 82; RESP 17; O2SAT 95
[2025-11-10 00:14] LABS: Glucose Urine UA Negative (Normal); Nitrate Urine Negative (Negative); Specific Gravity, Urine 1.021 (1.005-1.030)
[2025-11-10 00:18] LABS: Add Urine Microscopic? YES
[2025-11-10 00:53] LABS: Troponin(5th) Baseline 62 ng/L (0-15)
--- NOTE | 2025-11-10 00:59 | ECG_ITS ---
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1940 Requested By: Mitch Ochoa Order Number: [id number] Reading MD: KURT BERA Measurements Intervals [place] Rate: 86 P: 42 [place]: 146 QRS: -38 QRSD: 85 T: 71 QT: 313 QTc: 374 Interpretive Statements SINUS RHYTHM WITH FREQUENT SUPRAVENTRICULAR PREMATURE COMPLEXES LEFT AXIS DEVIATION [QRS AXIS < -30] NONSPECIFIC T-WAVE ABNORMALITY INTERPRETATION BASED ON A DEFAULT AGE OF 40 YEARS Compared to ECG 10/25/2025 14:35:59 T-wave abnormality now present Sinus arrhythmia no longer present Electronically Signed On 11-10-2025 20:36:18 APPRENTICE MACHINIST OUTSIDE by KURT BEAR [id number]
[2025-11-10 01:09] LABS: Reflex Lactate Order REFLEX LACTIC ORDERD
[2025-11-10 01:15] VITALS: BP 116/68; PULSE 58; RESP 13; O2SAT 97
[2025-11-10 02:00] VITALS: BP 134/78; PULSE 80; RESP 16; O2SAT 97
[2025-11-10 02:03] VITALS: BP 134/78; PULSE 74; O2SAT 98
[2025-11-10 02:49] LABS: Lactic Acid level (Lactate) 1.0 mmol/L (0.5-2.2)
== END 2025-11-10 02:13 | disposition home or self-care (01) ==
PROVIDERS: Emergency Provider Emergency Medicine
DX: I95.9 Hypotension, unspecified (principal); I48.92 Unspecified atrial flutter; I49.5 Sick sinus syndrome; Z79.82 Long term (current) use of aspirin; Z79.01 Long term (current) use of anticoagulants; E11.9 Type 2 diabetes mellitus without complications; Z86.73 Personal history of transient ischemic attack (TIA), and cerebral infarction without residual deficits
CPT/HCPCS: 36415; 71045; 80053; 81001; 83605; 83735; 84484; 85025; 93005; 96361; 96374; 96375; 99285; J1160; J3490; J7030

== ENCOUNTER 2025-11-13 15:35 | Emergency (ER) | payer OTHER, SELFPAY ==
--- OUTSIDE RECORDS SUMMARY | 2024-09-12 03:00 | XMS_ITS ---
Author Organization [facility] Address [address] [place] [address] Care Team Providers Care Tattoo Identifier Name Role Phone [facility] Primary Care Provider Ilda vailable Cody Lo Unavailable [phone] Migration, Provider Unavailable Unavailable REASON FOR VISIT EMR-Luis Carlos Encounters Encounter Location Date Provider Diagnosis Migrated_Facility 0 0 09/12/2024 Provider Migration Plan Of Treatment Next Appt Details Provider Name:Cody Lo, 06/02/2026 08:00:00 AM, [address] [place], [address], Progress Notes * Carlos Alberto ALCALA GDOB:1940 (85 yo M)Acc No.[id number]:09/12/2024 Patient: Abbie HOWELLCarlos Alberto Leila :1940 A ge:84 Y S ex:Male Address: [address], [facility] [address] Subjective: * Chief Complaints: * E MR-Luis Carlos * * Date:
--- OUTSIDE RECORDS SUMMARY | 2024-09-13 03:00 | XMS_ITS ---
Author Organization [facility] Address [address] [place] [address] Care Team Providers Care Tactical Air Defense Controller Name Role Phone [facility] Primary Care Provider Ilda Cody Newell Unavailable [phone] Migration, Provider Unavailable Unavailable Allergies Allergen (clinical drug ingredient) Drug/Non Drug Allergy documented on EMR Reaction Allergy Type Onset Date Status NKDA : NO KNOWN DRUG ALLERGIES Unknown Drug Allergy Active REASON FOR VISIT EMR-Luis Carlos Medications Medication SIG (Take, Route, Frequency, Duration) Notes Start Date End Date Status Aspirin *Pick strength[facility]f [facility]m from [facility] for eRX* Active Vitamin B-12 *[facility]* Active Finasteride *[facility] or[facility]* Active Rosuvastatin [facility]* Active Metformin [facility]* Active Multivitamin *[facility]f orm from [facility]* Active glipiZIDE *[facility]-f orm from [facility] for [facility]* Active Victoza 2-Galindo *[facility] and Interaction Alerts* Active Social History Social History Additional Details Category Social Info Options Details Migrated Social History Migrated Social History Alcoholic beverages? - No, Currently on disability? - Yes, Marital Status - , Nonprescription drug use? - No, Smoking - No, Smoking status (MU) - Never smoker, Working currently? - No Encounters Encounter Location Date Provider Diagnosis Migrated_Facility 0 0 09/13/2024 Provider Migration Plan Of Treatment Next Appt Details Provider Name:Cody Lo, 06/02/2026 08:00:00 AM, [address] [facility] [place], [address], Progress Notes * Carlos Alberto ALCALA GDOB:1940 (85 yo M)Acc No.[id number]:09/13/2024 Patient: Carlos Alberto COLE :1940 A ge:84 Y S ex:Male Address:[address] [address] Subjective: * Chief Complaints: * E MR-Luis Carlos * Medical History: Arthritis, D iabetes, H igh blood pressure, H istory of measles, mumps, or rubella, S troke, * Surgical History: Knee replacement surgery left shoulder surgery * Family History: M igrated Family History: : Cancer. * Social History: M igrated Social History: M igrated Social History: Alcoholic beverages? - No, C urrently on disability? - Yes, M arital Status - , N onprescription drug use? - No, S moking - No, S moking status (MU) - Never smoker, W orking currently? - No. * Medications: T akingVitamin B-12 , Notes to Pharmacist: *Pick strength-form from [facility] for eRX*glipiZIDE , Notes to Pharmacist: *Pick strength-form from [facility] for eRX*Rosuvastatin , Notes to Pharmacist: *Reorder from [facility] for eRx and Interaction Alerts*Finasteride , Notes to Pharmacist: *Pick strength-form from [facility] for eRX*Multivitamin , Notes to Pharmacist: *Pick strength-form from [facility] for eRX*Victoza 2-Galindo , Notes to Pharmacist: *Reorder from [facility] for eRx and Interaction Alerts*Metformin , Notes to Pharmacist: *Reorder from [facility] for eRx and Interaction Alerts*Aspirin , Notes to Pharmacist: *Pick strength-form from [facility] for eRX*Taking Vitamin B-12 , Notes to Pharmacist: *Pick strength-form from [facility] for eRX*Taking glipiZIDE , Notes to Pharmacist: *Pick strength-form from [facility] for eRX*Taking Rosuvastatin , Notes to Pharmacist: *Reorder from [facility] for eRx and Interaction Alerts*Taking Finasteride , Notes to Pharmacist: *Pick strength-form from [facility] for eRX*Taking Multivitamin , Notes to Pharmacist: *Pick strength-form from [facility] for eRX*Taking Victoza 2-Galindo , Notes to Pharmacist: *Reorder from [facility] for eRx and Interaction Alerts*Taking Metformin , Notes to Pharmacist: *Reorder from [facility] for eRx and Interaction Alerts*Taking Aspirin , Notes to Pharmacist: *Pick strength-form from [facility] for eRX* * Allergies: N KDA : NO KNOWN DRUG ALLERGIES: Allergy * * Date:
--- OUTSIDE RECORDS SUMMARY | 2025-05-24 02:20 | XMS_ITS ---
Author Organization [facility] Address [address] [place] [address] Care Team Providers Care Line Builder Name Role Phone [facility] Primary Care Provider Ilda vailaCody Croft Unavailable [phone] REASON FOR VISIT LEFT REVERSE TOTAL SHOULDER ARTHROPLASTY Encounters Encounter Location Date Provider Diagnosis [facility] [address] [address] 05/24/2025 Cody Lo Plan Of Treatment Next Appt Details Provider Name:Cody Lo, 06/02/2026 08:00:00 AM, [address] [facility] [place], [address], Progress Notes * Carlos Alberto ALCALA GDOB:1940 (85 yo M)Acc No.[id number]:05/24/2025 Patient: Carlos Alberto Ortiz Provider: JuanC arlos Lo M.D. :1940 A ge:84 Y S ex:Male Date:05/24/2025 Address:[address] [id number] Pcp:[facility] * Electronic signature of Mitch Lo MD on 11/13/2025 at 03:38 PM VISUAL JOURNALIST Sign off status: Pending * Provider: Juan Carlos Lo M.D. Date: 05/24/2025 Generated for Printi ng/Faxing/eTransmitting on: 1 01/14/2025 03:38 PM VISUAL JOURNALIST
[2025-11-13 15:35] VITALS: BP 111/61; PULSE 71; RESP 14; TEMP 36.3; O2SAT 98; BMI 18.8
--- OUTSIDE RECORDS SUMMARY | 2025-11-13 15:37 | XMS_ITS | Patient Health Record ---
Author Organization [facility] Address [address] [place] [address] Care Team Providers Care Parks And Recreation Manager Name Role Phone [facility] Primary Care Provider Ilda Cody Newell Unavailable [phone] Allergies No Known Allergies Results Component Value Reference Range Flag Notes CT UE w/o contrast left Torn ier Protocol-43010 Reviewed date:04/21/2025 10:09:01 AM Interpretation: Performing Lab: Notes/Report: [id number]=iSite CBC w\ Manual Diff 13636, 85 027 Reviewed date:05/10/2025 04:43:28 PM Interpretation: Performing Lab: Notes/Report: Diagnosis Description: Encounter for other preprocedural examination Diagnosis Description: Essential (primary) hypertension Diagnosis Description: Unspecified rotator cuff tear or rupture of left shoulder, not specified as traumatic WBC 5.5 4.5-11.0 X10'3 RBC 4.62 4.50-5.90 [...] Normal Morph Absolute Neutrophil Count 3960 NA XR Outside CD Reviewed date:04/21/2025 10:14:16 AM Interpretation: Performing Lab: Notes/Report: [email or web address]=[id number]&org=Luci Chest PA/Lat-01106 Reviewed date:04/21/2025 10:07:59 AM Interpretation: Performing Lab: Notes/Report: See Below For Report Chest PA/Lat Diagnosis Description: Unspecified rotator cuff tear or rupture of left shoulder, not specified as traumatic Read See Below For Report MRSA Screen PCR--29608 Reviewed date:05/10/2025 04:43:28 PM Interpretation: Performing Lab: Notes/Report: Diagnosis Description: Encounter for other preprocedural examination Diagnosis Description: Essential (primary) hypertension Diagnosis Description: Unspecified rotator cuff tear or rupture of left shoulder, not specified as traumatic MRSA Screen NOT DETECTED NA Comprehensive Metabolic Pane l (CMP) 55682 Reviewed date:05/10/2025 04:43:28 PM Interpretation: Performing Lab: Notes/Report: Diagnosis Description: Encounter for other preprocedural examination Diagnosis Description: Essential (primary) hypertension Diagnosis Description: Unspecified rotator cuff tear or rupture of left shoulder, not specified as traumatic Glucose Serum 227 71-110 MG/DL HI Testing p erformed at [facility], [address] [place] [address] [place] [address]. CLIA ID#: [id number] BUN 21 7-21 MG/DL Creat .95 .57-1.17 MG/DL C-quzhxn-s-benzoquino ne imine (NAPQI) is a metabolite of [...] UNIT/L LOW Osmo Serum,Calculated 294 280-300 MOSM/KG Vitamin D Total (B) 63019 Reviewed date:05/10/2025 04:43:28 PM Interpretation: Performing Lab: Notes/Report: Diagnosis Description: Unspecified rotator cuff tear or rupture of left shoulder, not specified as traumatic Diagnosis Description: Essential (primary) hypertension Diagnosis Description: Encounter for other preprocedural examination Vitamin D Total 71.8 30.0-100.0 ng/mL Deficiency: < 20 ng/mL Insufficiency: 20??? < 30 ng/mL Sufficiency: 30???100 ng/mL Performed on the Siemens AtellScaleIO IM Analyzer US Surgery Unlisted Reviewed date:05/27/2025 12:26:37 PM Interpretation: Performing Lab: Notes/Report: This procedure was dictated and transcribed outside of the YuMingle system. The results may be found in the patient's physical chart. FINAL REPORT Read This procedure was dictated and transcribed outside of the [employer]Net system. The results may be found in the patient's physical chart. Glucometer WBG--58675 Reviewed date:06/02/2025 03:19:36 PM Interpretation: Performing Lab: Notes/Report: Glucometer WBG 237 65-110 MG/DL HI Asymptom atic~Meter: [id number]~Director Nursery School: [id number] CECI MCDANIEL Glucometer WBG--53227 Reviewed date:06/02/2025 03:19:36 PM Interpretation: Performing Lab: Notes/Report: Glucometer WBG 133 65-110 MG/DL HI Asymptom atic~Meter: [id number]~Director Nursery School: [id number] CECI MCDANIEL Glucometer WBG--12578 Reviewed date:06/02/2025 03:21:36 PM Interpretation: Performing Lab: Notes/Report: Glucometer WBG 172 65-110 MG/DL HI Notify D r~Meter: [id number]~Director Nursery School: [id number] RHONA ORTEZ CBC [place] Diff 48738, 8 5117 Reviewed date:06/02/2025 03:20:20 PM Interpretation: Performing Lab: Notes/Report: WBC 6.5 4.5-11.0 X10'3 RBC 3.57 4.50-5.90 X10'6 LOW Hgb 11.0 13.5-17.5 G/DL LOW Hct 32.5 41.0-53.0 % LOW MCV 91.0 80.0-100.0 FL MCH 30.8 27.0-31.0 PG MCHC 33.8 31.0-37.0 G/DL Platelet 141 150-400 X10'3 LOW RDW-SD 44.0 35.0-49.0 FL RDW-CV 13.1 12.2-15.6 % MPV 10.3 9.2-12.0 FL Review Auto Diff Conf WBC Auto Diff--08955 Reviewed date:06/02/2025 03:20:20 PM Interpretation: Performing Lab: Notes/Report: Added by Discern Rules Neutro Auto% 81.1 40.0-70.0 % HI Lymph Auto% 10.2 22.0-44.0 % LOW [place] Auto% 7.6 3.0-7.0 % HI Eos Auto% .2 2.0-4.0 % LOW Baso Auto% 0.6 0.0-1.0 % NRBC% .00 .00-.20 /100 intact WBC's Neutro Abs 5.26 .80-7.70 Absolute Neutrophil Count 5260 NA Lymph Abs .66 .10-4.10 [place] Abs .49 .20-1.00 Eos Abs .01 .00-.40 Baso Abs .04 .00-.20 NRBC# .00 .00-.20 Imm Gran Abs .02 .00-.10 Imm Gran% .3 .0-.4 % Glucometer WBG--08480 Reviewed date:06/02/2025 03:20:20 PM Interpretation: Performing Lab: Notes/Report: Glucometer WBG 221 65-110 MG/DL HI Asymptom atic~Meter: [id number]~Director Nursery School: [id number] MARLENE MANZO Shoulder Min 1V Left Reviewed date:07/07/2025 03:21:46 PM Interpretation: Performing Lab: Notes/Report: [email or web address]=[id number]&org=iSite Chest PA/Lat-92806 Reviewed date:04/21/2025 10:08:51 AM Interpretation: Performing Lab: Notes/Report: [id number]&org=iSite Schedule Confirmation Reviewed date:04/21/2025 10:08:24 AM Interpretation: Performing Lab: Notes/Report: CT UE w/o contrast left Tornier Protocol CT UE w/o contrast left Torn ier Protocol-65795 Reviewed date:04/22/2025 09:13:43 AM Interpretation: Performing Lab: Notes/Report: See Below For Report CT UE w/o contrast left Tornier Protocol Diagnosis Description: Unspecified rotator cuff tear or rupture of left shoulder, not specified as traumatic Read See Below For Report Shoulder Min 1V Left Reviewed date:07/07/2025 03:19:36 PM Interpretation: Performing Lab: Notes/Report: The report for this exam was dictated at [facility] . FINAL REPORT Read The report for this exam was dictated at [facility] . Glucometer WBG--86832 Reviewed date:06/02/2025 03:19:36 PM Interpretation: Performing Lab: Notes/Report: Glucometer WBG 136 65-110 MG/DL HI Asymptom atic~Meter: [id number]~Director Nursery School: [id number] CECI MCDANIEL Glucometer WBG--23923 Reviewed date:06/02/2025 03:19:36 PM Interpretation: Performing Lab: Notes/Report: Glucometer WBG 79 65-110 MG/DL Meter: [id number]~Director Nursery School: [id number] MIKE PATTERSON Glucometer WBG--79017 Reviewed date:06/02/2025 03:19:36 PM Interpretation: Performing Lab: Notes/Report: Glucometer WBG 170 65-110 MG/DL HI Asymptom atic~Meter: [id number]~Director Nursery School: [id number] CECI MCDANIEL UA Reflex Micro, Reflex Cult 15949, 55308, 89306 Reviewed date:05/10/2025 04:43:28 PM Interpretation: Performing Lab: Notes/Report: Diagnosis Description: Encounter for other preprocedural examination Diagnosis Description: Essential (primary) hypertension Diagnosis Description: Unspecified rotator cuff tear or rupture of left shoulder, not specified as traumatic Color UA Yellow NA Clarity UA Clear NA Specific gravity UA 1.012 1.005-1.030 Urine pH 6.0 5.0-8.0 NA Urine Glucose Negative NA Urine Bilirubin Negative NA Urine Ketone Negative NA Urine Blood Negative NA Urine Protein Negative NA Urobilinogen 0.2 0.1-1.0 NA Urine Nitrite Negative NA Urine Leukocyte Negative NA Normal UA Yes Urine Culture No Schedule Confirmation Reviewed date:04/21/2025 10:08:19 AM Interpretation: Performing Lab: Notes/Report: CT UE w/o contrast left Tornier Protocol Shoulder Min 1V Left Reviewed date:05/27/2025 12:26:17 PM Interpretation: Performing Lab: Notes/Report: [id number]=iSite Basic Metabolic Panel (BMP) 83001 Reviewed date:06/02/2025 03:20:20 PM Interpretation: Performing Lab: Notes/Report: Sodium 139 136-145 MMOL/L Potassium 4.2 3.5-5.1 MMOL/L Chloride 103 98-107 MMOL/L CO2 26.6 20.0-31.0 MMOL/L Glucose Serum 253 71-110 MG/DL HI Testing p erformed at [facility], [address] [place] [address] [place] [address]. CLIA ID#: [id number] BUN 22 7-21 MG/DL HI Creat .99 .57-1.17 MG/DL B-anmacz-p-benzoquino ne imine (NAPQI) is a metabolite of [...] MG/DL LOW Osmo Serum,Calculated 300 280-300 MOSM/KG Glucometer WBG--29071 Reviewed date:06/02/2025 03:20:20 PM Interpretation: Performing Lab: Notes/Report: Glucometer WBG 217 65-110 MG/DL HI Sliding Scale Given~Meter: [id number]~Director Nursery School: [id number] ROLO RAMIRES Glucometer WBG--49685 Reviewed date:06/02/2025 03:21:36 PM Interpretation: Performing Lab: Notes/Report: Glucometer WBG 356 65-110 MG/DL HI Sliding Scale Given~Meter: [id number]~Director Nursery School: [id number] JEANNETTE NATALY Glucometer WBG--96010 Reviewed date:06/02/2025 03:21:36 PM Interpretation: Performing Lab: Notes/Report: Glucometer WBG 189 65-110 MG/DL HI Asymptom atic~Meter: [id number]~Director Nursery School: [id number] FELIX ION Shoulder Min 1V Left Reviewed date:05/27/2025 12:25:58 PM Interpretation: Performing Lab: Notes/Report: See Below For Report Shoulder 1V Left Read See Below For Report Reason For Referral Reason Status post reverse left total shoulder arthroplasty rehabilitation at [place] clinic: Twice a week, 8 to 10 weeks Diagnosis 1 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) Referral Organization [facility] Referring Provider First Name Cody Referring Provider Last Name Lo Referring Provider Speciality Orthopedic Surgery Referred Provider [facility] Referred Provider Specialty Physical The rapist Clinical Notes Winter Mcadams 025 11:41:10 AM CDT > scheduled to start pt 07/21 Referral Priority Routine Medications Medication SIG (Take, Route, Frequency, Duration) Notes Start Date End Date Status Rosuvastatin Calcium 10 MG Tablet 1 tablet Orally Once a day Active Victoza 2-Galindo *Reorder from [facility] for eRx and Interaction Alerts* Not-Taking Pioglitazone HCl 45 MG Tablet 1 tablet Orally Once a day Active Rosuvastatin *Reorder from [facility] for eRx and Interaction Alerts* Not-Taking Multivitamin *Pick strength-f orm from [facility] for eRX* Active Metformin hydrochloride 1000 MG Oral Tablet Metformin hydrochloride 1000 MG Oral Tablet 10/01/2013 Not-Taking Magnesium 250 MG Tablet 1 tablet with a meal Orally Once a day Active Metformin *Reorder from [facility] for eRx and Interaction Alerts* Not-Taking Aspirin *Pick strength-f orm from [facility] for eRX* Not-Taking Tamsulosin HCl 0.4 MG Capsule 1 capsule Orally Once a day Active Vitamin B-12 *Pick strength-f orm from [facility] for eRX* Not-Taking SITagliptin 100 MG Tablet [...] 10/01/2013 Not-Taking glipiZIDE *Pick strength-f orm from [facility] for eRX* Not-Taking Finasteride *Pick strength-f orm from [facility] for eRX* Not-Taking Immunizations Vaccine Route Administration Date Status Comme nts Influenza (whole), CPT 60174 Inactive Unknown 10/18/2016 Administered Social History Tobacco [...] W/U Status Risk Notes Problem Essential hypertension (53536745) Essential (primary) hypertension (I10) Active confirmed Problem Rotator cuff arthropathy of left shoulder (disorder) (8466272616717684 0) Other specific arthropathies, not elsewhere classified, left shoulder (M12.812) Active confirmed Problem Nontraumatic rupture of muscle or tendon structure of rotator cuff of left shoulder (disorder) (7726923191780207 ) Unspecified rotator cuff tear or rupture of left shoulder, not specified as traumatic (M75.102) Active confirmed Problem 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 Problem 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) (3984339547604703 2) 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 Problem 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) (712919138) 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) Active confirmed Problem Nontraumatic rotator cuff tear, left (M75.102) Active confirmed Problem History of cerebrovascular accident without residual deficits (547780679) Personal history of transient ischemic attack (TIA), and cerebral infarction without residual deficits (Z86.73) Active confirmed [id number] med Description:H/O : TIA Problem Type II diabetes mellitus without complication (726905701) Type 2 diabetes mellitus without complications (E11.9) Active confirmed [id number] med Description:Typ e 2 diabetes mellitus Problem Mixed hyperlipidemia (299930606) Mixed hyperlipidemia (E78.2) Active confirmed [id number] med Description:Mix ed hyperlipidemia Problem Essential hypertension (55085340) Essential primary hypertension (I10) Active confirmed [id number] med Description:Ess ential hypertension Vital Signs Heart Rate 72 /min 09/02/2025 Height-cm 182.88 cm 09/02/2025 Oximetry 97 % 09/02/2025 Blood pressure diastolic 54 mm Hg 09/02/2025 Weight-kg 64.3 kg 09/02/2025 Height 72.00 in 09/02/2025 Blood pressure systolic 102 mm Hg 09/02/2025 Weight 141.76 lbs 09/02/2025 BMI 19.22 kg/m2 09/02/2025 Encounters Encounter Location Date Provider Diagnosis [facility] [place] [address] [place] [address] 04/20/2025 Cody Lo Unspecified rotator cuff tear or rupture of left shoulder, not specified as traumatic M75.102 ; Other specific arthropathies, not elsewhere classified, left shoulder M12.812 ; Essential (primary) hypertension I10 and Encounter for preoperative examination for general surgical procedure Z01.818 [facility] [address] [place] [address], [place] [address] 09/02/2025 Cody Lo Status post reverse total arthroplasty of left shoulder Z96.612 [facility] [address] [place] [address] 05/31/2025 Cody Lo Encounter for postoperative wound check Z48.89 [facility] [address] [place] [address] 07/06/2025 Cody Lo Status post reverse total replacement of left shoulder Z96.612 [facility] [address] [place] [address] 05/24/2025 Cody Lo [facility] [address] [place] [address], [place] [address] 06/21/2025 Cody Lo [facility] [address] [place] [address] 08/18/2025 Cody Lo Assessments Encounter Date Diagnosis (ICD Code) Assessment Notes Treatment Notes Treatment Clinical Notes Section Notes 07/06/2025 Status post reverse total replacement of left shoulder (ICD-10 - Z96.612) This individual is doing extremely well. He has very little if any postoperative pain. I am going to go ahead and start his physical therapy program through [facility] at their [place] clinic. Will recheck in 2 months. [...] him up to 1 year from surgery. 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 This man also is a diabetic. However he has received clearance from his physicians at the [facility] for orthopedic care on his left shoulder. [...] Order Date Shoulder 2V 07/06/2025 MRSA Screen PCR--50046 04/20/2025 Comprehensive Metabolic Panel (CMP) 8005 3 04/20/2025 Vitamin D Total (B) 18332 04/20/2025 CBC w\ Manual Diff 00110, 63728 04/20/20 25 UA Reflex Micro, Reflex Cult 30745, 8101 5, 46417 04/20/2025 Electrocardiogram 12 Lead Tracing (EKG)- 07755 04/20/2025 Next Appt Details Provider Name:Cody Lo, 06/02/2026 08:00:00 AM, [address] [facility], [place], [address], Insurance Providers Payer Name Payer Address Payer Phone Subscriber Number Group Number Insured Name Patient Relationship to Insured Coverage Start Date Coverage End Date [employer] [address] [place] [phone] [id number] Carlos Alberto Lares Self - patient is the insured Medical (General) History Medical History History ICD Code Arthritis, measles Diabetes, chicken pox High blood pressure, diabetes History of measles, mumps, or rubella, Stroke, Surgical History Surgery Date(Month/Year) left shoulder surgery Knee replacement surgery
--- OUTSIDE RECORDS SUMMARY | 2025-11-13 15:37 | XMS_ITS | Encounter Summary ---
Author Organization [facility] Address [address] [place] [address] Care Team Providers Care Civil Engineer'S Aide Name Role Phone Jeanie Goff MD Primary Care Provider [phone] Encounter Details Date Type Department Care Team (Latest Contact Info) Description 04/08/2003 Outpatient Historical [facility] Cardiovascular Services [address] [phone] Adelfo Peace MD [address] [address] [place] [address] CHEST PAIN NOS (Primary Dx) Social History Tobacco Use Types Packs/Day Years Used Date Smoking Tobacco: Never Assessed Sex and Gender Information Value Date Recorded Sex Assigned at Not on file Legal 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
--- OUTSIDE RECORDS SUMMARY | 2025-11-13 15:37 | XMS_ITS | Encounter Summary ---
Author Organization [facility] Address [address] [place] [address] Care Team Providers Care Coater Smoking Pipe Name Role Phone Jeanie Goff MD Primary Care Provider [phone] Encounter Details Date Type Department Care Team (Late st Contact Info) Description 04/08/2003 Outpatient Historical [facility] Imaging Services [place] [address] 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
--- OUTSIDE RECORDS SUMMARY | 2025-11-13 15:37 | XMS_ITS | Encounter Summary ---
Author Organization [facility] Address [address] [place] [address] Care Team Providers Care Gold Cutter Name Role Phone Jeanie Goff MD Primary Care Provider [phone] Encounter Details Date Type Department Care Team (Latest Contact Info) Description 09/22/2001 Outpatient Historical [facility] Jarred Mendoza MD [address] [place] [address] DIABETES UNCOMPL ADULT-TYPE II (CMS/HCC) (Primary Dx); HYPERTENSION NOS; VACCINE FOR INFLUENZA Social History Tobacco Use Types Packs/Day Years Used Date Smoking Tobacco: Never Assessed Sex and Gender Information Value Date Recorded Sex Assigned at Not on file 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
--- OUTSIDE RECORDS SUMMARY | 2025-11-13 15:38 | XMS_ITS | Clinical Summary ---
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 Gender Identity Not on file Sexual Orientation Not on file Last Filed Vital Signs Vital Sign Reading Time Taken Comments Blood Pressure 158/88 10/25/2019 7:08 PM GLUCOSE AND SYRUP WEIGHER Pulse 75 10/25/2019 4:45 PM GLUCOSE AND SYRUP WEIGHER Temperature 36.5 C (97.7 F) 10/25/2019 4:16 PM GLUCOSE AND SYRUP WEIGHER Respiratory Rate 16 10/25/2019 7:08 PM GLUCOSE AND SYRUP WEIGHER Oxygen Saturation 98% 10/25/2019 7:08 PM GLUCOSE AND SYRUP WEIGHER Inhaled Oxygen Concentration - - Weight 63.5 kg (140 lb) 10/25/2019 4:16 PM GLUCOSE AND SYRUP WEIGHER Height 180.3 cm (5' 11 ) 10/25/2019 4:16 PM GLUCOSE AND SYRUP WEIGHER Body Mass Index 19.53 10/25/2019 4:16 PM GLUCOSE AND SYRUP WEIGHER Plan of Treatment Health Maintenance Due Date [...] 09/22/2001 Insurance MEDICARE PART A AND B [employer] Care Teams Clinical Leader Relationship Specialty Start Date End Date Jeanie Goff MD [address] [place] [address] PCP - General Internal Medicine 01/28/17
--- OUTSIDE RECORDS SUMMARY | 2025-11-13 15:38 | XMS_ITS | Clinical Summary ---
Author Organization [facility] Address [address] [place]: Epic Prelude ADT [place] [id number] Care Team Providers Care Chief Clerk Name Role Phone Unavailable Primary Care Provider [...] Type Department Care Team Description 11/04/2025 Telephone [place] [address] [place] [phone] iRchie García MD patient question 11/03/2025 11:45 AM FARM AGENT Office Visit [place] [address] [place] [phone] Richie García MD Dupuytren's contracture of left hand (Primary Dx) 11/03/2025 11:30 AM FARM AGENT - 11/03/2025 11:59 PM FARM AGENT Hospital Encounter [facility] OP Therapy [facility] [place] [address] [place] [phone] Richie García MD Thomas, Erin M, Occupational Therapist Discharge Disposition: Home or Self Care 10/27/2025 11:30 AM FARM AGENT Office Visit [place] [address] [place] [phone] Richie García MD Dupuytren's contracture of left hand (Primary Dx) 10/26/2025 External Device Data [facility] ABSTRACTION Provider, Abstract 10/26/2025 External Device Data [facility] ABSTRACTION Provider, Abstract 10/26/2025 External Device Data [facility] ABSTRACTION Provider, Abstract 10/26/2025 Abstract [facility] [address] [place] [id number] Maris Sal, OSVALDO 10/22/2025 Telephone [place] [address] [place] [phone] Richie García MD General 10/21/2025 Orders Only [place] [address] [place] [phone] Richie García MD Contracture of palmar fascia (Primary Dx) 10/20/2025 8:15 AM FARM AGENT Office Visit [facility] [place] [address] [place] [phone] Richie García MD Dupuytren's contracture of left [...] on file Legal Sex Male 6:44 AM FARM AGENT Gender Identity Not on file Sexual Orientation Not on file Last Filed Vital Signs Vital Sign Reading Time Taken Comments Blood Pressure 112/62 11/03/2025 11:33 AM FARM AGENT Pulse 75 10/25/2019 4:45 PM FARM AGENT Temperature 36.5 C (97.7 F) 10/25/2019 4:16 PM FARM AGENT Respiratory Rate 16 10/25/2019 7:08 PM FARM AGENT Oxygen Saturation - - Inhaled Oxygen Concentration - - Weight 64.4 kg (142 lb) 11/03/2025 11:33 AM FARM AGENT Height 182.9 cm (6') 11/03/2025 11:33 AM FARM AGENT Body Mass Index 19.26 11/03/2025 11:33 AM FARM AGENT Plan of Treatment Upcoming Encounters Date Type Department Care Team (Late st Contact Info) Description 11/29/2025 2:30 PM FARM AGENT Office Visit [facility] [address] [place] [phone] Mariam Mccarty MD [address] [place] [phone] 12/01/2025 11:15 AM FARM AGENT Office Visit [facility] [address] [phone] Richie García MD [address] [phone] Health Maintenance Due Date Last Done Comments [...] 07/20/2025, , 12/27/2016, Additional history exists Insurance [facility] [place] [address] [place] [address] [employer]UM
--- NOTE | 2025-11-13 15:40 | ECG_ITS ---
[email or web address] 2025-11[facility]13 Pat Name: Carlos Alberto Lares Department: Room: Gender: Male Customer Solutions Specialist: : 1940 Requested By: Gustabo Fournier Order Number: [id number] Reading MD: KURT BEAR Measurements Intervals [place] Rate: 73 P: 52 AL: 158 QRS: -29 QRSD: 83 T: 57 QT: 351 QTc: 388 Interpretive Statements SINUS RHYTHM WITH OCCASIONAL SUPRAVENTRICULAR PREMATURE COMPLEXES BORDERLINE LEFT AXIS DEVIATION [QRS AXIS < -20] NONSPECIFIC T-WAVE ABNORMALITY Compared to ECG 11/09/2025 23:59:37 T-wave abnormality now present Atrial flutter no longer present Electronically Signed On 11-14-2025 22:56:59 PRESS SET UP PERSON by KURT BEAR [email or web address]
[2025-11-13 15:56] LABS: Hematocrit 39.0 % (37-53); Hemoglobin 13.30 g/dL (11.27-16.99); Mean Corpuscular HGB Conc 34.1 g/dL (30-55); Mean Corpuscular Hemoglobin 31.1 pg (27-33); Mean Corpuscular Volume 91.3 fl (82-101); Nucleated Red Blood Cells % 0 %; Platelet Count 181 10^3/cmm (157-399); Red Blood Count 4.27 10^6/uL (3.85-5.65); White Blood Count 6.03 10^3/uL (3.29-11.43)
[2025-11-13 16:17] LABS: Alanine Aminotransferase 8 U/L (0-41); Albumin Level 3.8 g/dL (3.5-5.2); Alkaline Phosphatase 100 U/L (40-130); Anion Gap 15.5 (5-19); Aspartate Amino Transferase 17 U/L (0-40); Blood Urea Nitrogen 25 mg/dL (8-23); Calcium 9.5 mg/dL (8.5-10.5); Carbon Dioxide 25 mmol/L (22-29); Chloride 103 mmol/L (98-107); Globulin 2.1 g/dL (1.3-4.6); Glucose 119 mg/dL (65-115); Osmolality Calculated 294 mOsm/kg (285-295); Potassium 4.5 mmol/L (3.5-5.1); Sodium 139 mmol/L (136-145); Total Protein 5.9 g/dL (6.6-8.7)
[2025-11-13 16:20] VITALS: BP 118/56; PULSE 61; RESP 15; O2SAT 96
--- NOTE | 2025-11-13 16:21 | W.ED.ARRPALP ---
HPI - Arrhythmia/Palpitations General: Chief Complaint: Arrhythmia/Palpitations Stated Complaint: hypotension Time Seen by Provider: 11/13/25 16:18 Source: patient Mode of arrival: ambulatory Limitations: no limitations History of Present Illness: 85-year-old male has a history of tachybradycardia syndrome states he is scheduled to see assistant finance manager Dr. Mccarty in a couple weeks for possible pacemaker placement states that today he had his heart rate dropped to the 150s had some slight dizziness he states that is since resolved. Patient's feeling normal his heart rate here has been normal he denies any chest pain. Related Data Home Medications ?Medication ?Instructions ?Recorded ?Confirmed aspirin 81 mg tablet,delayed 81 mg PO DAILY 10/03/22 11/04/25 release finasteride 5 mg tablet 5 mg PO DAILY 10/03/22 11/04/25 multivitamin (One Daily 1 tab PO DAILY 10/03/22 11/04/25 Multivitamin tablet) magnesium 250 mg tablet 250 mg PO DAILY 03/02/25 11/04/25 mecobalamin (vitamin B12) 500 mcg 500 mcg PO DAILY 03/02/25 11/04/25 chewable tablet prevagen 1 cap PO BID 03/02/25 11/04/25 rosuvastatin 10 mg tablet 5 mg PO DAILY 03/02/25 11/04/25 sitagliptin 100 mg tablet 100 mg PO DAILY 03/02/25 11/04/25 nut.tx.gluc.intol,lac-free,soy 1 ea PO TID 09/22/25 11/04/25 (Glucerna oral liquid) Previous Rx's ?Medication ?Instructions ?Recorded blood-glucose sensor (Dexcom G7 #9 ea 08/23/25 Sensor device) pen needle, diabetic 33 gauge x #100 ea 09/13/25 (Comfort EZ Pen Isabel) apixaban 5 mg tablet (Eliquis) 5 mg PO BID #60 tabs 09/24/25 losartan 25 mg tablet 25 mg PO DAILY #30 tabs 09/24/25 Bilateral More Balance Brace #1 ea 09/30/25 repaglinide 0.5 mg tablet 0.5 mg PO TID #90 tabs 11/04/25 insulin aspart U-100 100 unit/mL 3 unit (0.03 mL) SUBCUT TID #90 mL 12/24/25 (3 mL) subcutaneous pen (Novolog FlexPen U-100 Insulin aspart) Allergies Allergy/AdvReac Type Severity Reaction Status Date / Time No Known Allergies Allergy Verified 11/13/25 15:41 PFSH ED PFSH: Medical History CVA (cerebral vascular accident) Rotator cuff arthropathy of left shoulder Rupture of left proximal biceps tendon Type 2 diabetes mellitus Social History Smoking and tobacco/nicotine status: never used tobacco/nicotine Physical Exam Const: COMMON NORMALS: no acute distress, patient oriented x3 and healthy appearing HENMT: COMMON NORMALS: normocephalic and atraumatic HEAD & SCALP: normocephalic and atraumatic Neck/C-Spine: COMMON NORMALS: full ROM and supple Chest: COMMONS NORMALS: normal inspection of the chest Resp: COMMON NORMALS: normal respiratory effort Cardio: COMMON NORMALS: regular rate, regular rhythm and No murmurs present (Cardio) RATE: regular rate RHYTHM: regular rhythm Extremity: COMMON NORMALS: normal to inspection and full ROM Neuro: COMMON NORMALS: patient oriented x3, moves all extremities and no focal motor deficits Psych: COMMON NORMALS: mental status grossly normal, Normal thought process present and cooperative THOUGHT PROCESS: Normal thought process present Skin: COMMON NORMALS: no rashes or lesions noted and no wounds GENERAL SKIN EXAM: no rashes or lesions noted Course Vital Signs: Vital signs: Vital Signs Temperature 97.4 F L 11/13/25 15:35 Pulse Rate 78 11/13/25 17:13 Respiratory Rate 12 11/13/25 16:53 Blood Pressure 131/69 11/13/25 17:13 Pulse Oximetry 94 11/13/25 17:13 Oxygen Delivery Sd thod Room Air 11/13/25 15:35 MDM - Arrhythmia/Palpitations Medical Decision Making Patient presents here with episode of tachycardia at home his heart rate here has been normal blood pressures here been normal he is at his baseline and has no complaints at this time. Does have a history of tacky bradycardia has follow-up in 2 weeks with cardiology at [facility] did observe him here and had no episodes of tachycardia and he is stable for discharge follow-up as scheduled and return if worsening EKG interpreted by me at 1544 normal sinus rhythm heart rate [address] elevation QRS 83 QTc 377 Medical Records I reviewed the patient's medical records. Lab Data I reviewed the patient's lab results. 11/13/25 15:50 11/13/25 15:50 Laboratory Results WBC 6.03 10^3/uL (3.29-11.43) 11/13/25 15:50 RBC 4.27 10^6/uL (3.85-5.65) 11/13/25 15:50 Hgb 13.30 g/dL (11.27-16.99) 11/13/25 15:50 Hct 39.0 % (37-53) 11/13/25 15:50 MCV 91.3 fl (82-101) 11/13/25 15:50 MCH 31.1 pg (27-33) 11/13/25 15:50 MCHC 34.1 g/dL (30-55) 11/13/25 15:50 RDW 12.9 % (12.1-15.1) 11/13/25 15:50 Plt Count 181 10^3/cmm (157-399) 11/13/25 15:50 MPV 9.9 fL (7.4-10.4) 11/13/25 15:50 Neut % (Auto) 66.0 % 11/13/25 15:50 Lymph % (Auto) 23.5 % 11/13/25 15:50 Bates % (Auto) 8.1 % 11/13/25 15:50 Eos % (Auto) 1.3 % 11/13/25 15:50 Baso % (Auto) 0.8 % 11/13/25 15:50 Neut # (Auto) 3.97 10^3/uL (1.8-7.7) 11/13/25 15:50 Lymph # (Auto) 1.4 10^3/uL (0.8-4.8) 11/13/25 15:50 Bates # (Auto) 0.5 10^3/uL (0.2-0.9) 11/13/25 15:50 Eos # (Auto) 0.1 10^3/uL (0.0-0.8) 11/13/25 15:50 Baso # (Auto) 0.1 10^3/uL (0.0-0.1) 11/13/25 15:50 Nucleated RBC % (auto) 0 % 11/13/25 15:50 Nucleated RBCs # 0.0 /100WBC 11/13/25 15:50 Sodium 139 mmol/L (136-145) 11/13/25 15:50 Potassium 4.5 mmol/L (3.5-5.1) 11/13/25 15:50 Chloride 103 mmol/L (98-107) 11/13/25 15:50 Carbon Dioxide 25 mmol/L (22-29) 11/13/25 15:50 Anion Gap 15.5 (5-19) 11/13/25 15:50 BUN 25 mg/dL (8-23) H 11/13/25 15:50 Creatinine 1.3 mg/dL (0.7-1.2) H 11/13/25 15:50 GFR Calculation Not Reportable 11/13/25 15:50 Glucose 119 mg/dL (65-115) H 11/13/25 15:50 Calculated Osmolality 294 mOsm/kg (285-295) 11/13/25 15:50 Calcium 9.5 mg/dL (8.5-10.5) 11/13/25 15:50 Total Bilirubin 0.5 mg/dL (0.15-1.2) 11/13/25 15:50 AST 17 U/L (0-40) 11/13/25 15:50 ALT 8 U/L (0-41) 11/13/25 15:50 Alkaline Phosphatase 100 U/L (40-130) 11/13/25 15:50 Total Protein 5.9 g/dL (6.6-8.7) L 11/13/25 15:50 Albumin 3.8 g/dL (3.5-5.2) 11/13/25 15:50 Globulin 2.1 g/dL (1.3-4.6) 11/13/25 15:50 No radiology studies performed this visit Discharge Plan Discharge Patient Disposition: Home Clinical Impression: Tachy-abner syndrome Condition: Stable Prescriptions: No Action (DME) Bilateral More Balance Brace See Rx Instructions .Route .MEDSUPPLY Qty: 1 0RF Rx Instructions: As directed by Shannan Wooten finasteride 5 mg tablet 5 mg PO DAILY multivitamin [One Daily Multivitamin] Tablet 1 tab PO DAILY aspirin 81 mg tablet,delayed release (DR/EC) 81 mg PO DAILY repaglinide 0.5 mg tablet 0.5 mg PO TID Qty: 90 3RF Rx Instructions: administer within 30 minutes of a meal or snack rosuvastatin 10 mg tablet 5 mg PO DAILY sitagliptin 100 mg tablet 100 mg PO DAILY magnesium 250 mg tablet 250 mg PO DAILY mecobalamin (vitamin B12) 500 mcg tablet,chewable 500 mcg PO DAILY prevagen 1 cap PO BID (DME) Dexcom G7 Sensor Device See Rx Instructions .Route Qty: 9 1RF Rx Instructions: As directed (DME) pen needle, diabetic [Comfort EZ Pen Isabel] 33 gauge x 5/32 needle See Rx Instructions .Route Qty: 100 6RF Rx Instructions: use for injecting insulin 4 times per day insulin aspart U-100 [Novolog FlexPen U-100 Insulin] 100 unit/mL (3 mL) insulin pen 3 unit SUBCUT TID Qty: 90 2RF Glucerna Liquid 1 ea PO TID Eliquis 5 mg tablet 5 mg PO BID Qty: 60 2RF losartan 25 mg tablet 25 mg PO DAILY Qty: 30 0RF Discharge Orders: Discharge ED (Routine); Ordered 11/13/25 Ordered By: Gustabo Fournier Discharge Diet: Advance as tolerated Discharge Activity: Resume usual activity Patient Instructions: Tachycardia (ED) Print Language: Mohawk Coding Level of Care Code ED Editorial Manager for Jennifer Rodas
[2025-11-13 16:53] VITALS: BP 131/69; PULSE 78; RESP 12; O2SAT 96
[2025-11-13 17:13] VITALS: BP 131/69; PULSE 78; O2SAT 94
== END 2025-11-13 17:13 | disposition home or self-care (01) ==
PROVIDERS: Emergency Provider Emergency Medicine
DX: I49.5 Sick sinus syndrome (principal); Z79.01 Long term (current) use of anticoagulants; Z79.4 Long term (current) use of insulin; Z79.82 Long term (current) use of aspirin; E11.9 Type 2 diabetes mellitus without complications; Z86.73 Personal history of transient ischemic attack (TIA), and cerebral infarction without residual deficits; Z95.0 Presence of cardiac pacemaker
CPT/HCPCS: 80053; 85025; 93005; 99284